=== PATIENT | female | born 1970 | race Caucasian/White ===

== ENCOUNTER 2020-01-06 13:09 | Outpatient (REF) | payer OTHER, SELFPAY ==
--- NOTE | 2020-01-06 | MM_ITS ---
EXAMINATION: MM SCREENING DIGITAL BREAST TOMOSYNTHESIS, BILATERAL CLINICAL INFORMATION: Screening. Asymptomatic. The lifetime risk of breast cancer based on the Tyrer-Cuzick Model is 5.9%. COMPARISON: Mammography: Mammograms of 02/16/2018 and multiple previous mammograms dated back to 06/27/2008. TECHNIQUE: Digital breast tomosynthesis is performed in both the craniocaudal and mediolateral oblique views along with computer-aided detection (CAD). Synthesized 2D images are generated from the tomosynthesis. FINDINGS: The breasts are heterogeneously dense, which may obscure small masses (ACR BI-RADS breast composition Category c). There are no significant masses, abnormal calcifications, or other abnormalities. Prominent bilateral axillary lymph nodes are noted, similar findings are seen on the multiple previous mammograms. Right axillary lymph node biopsy was performed on 03/30/2017 with benign pathology results (reactive lymph nodes). No significant interval change is noted compared to last study. MM/MM tomosynthesis screening BI IMPRESSION: No mammographic evidence of malignancy. ASSESSMENT: BI-RADS 2: Benign. RECOMMENDATION: Routine annual mammography screening. This patient's information was entered into a reminder system with a target due date for their next mammogram.
== END 2020-01-06 13:10 | disposition home or self-care (01) ==
LOC: HO.MAMMO 13:09
PROVIDERS: PCP Internal Medicine; Visit Provider Internal Medicine
DX: Z12.31 Encounter for screening mammogram for malignant neoplasm of breast (principal)
CPT/HCPCS: 77063; 77067

== ENCOUNTER 2020-02-10 13:41 | Outpatient (REF) | payer OTHER, SELFPAY ==
[2020-02-13 17:57] LABS: HPV mRNA E6/E7 rflx Not Detected (Not Detected)
== END 2020-02-10 13:42 | disposition home or self-care (01) ==
LOC: HO.LAB 13:41
PROVIDERS: PCP Internal Medicine; Visit Provider Obstetrics & Gynecology
DX: Z01.419 Encounter for gynecological examination (general) (routine) without abnormal findings (principal); N64.4 Mastodynia; Z78.0 Asymptomatic menopausal state; Z87.891 Personal history of nicotine dependence
CPT/HCPCS: 87624; 87625; 88142

== ENCOUNTER 2020-03-11 13:47 | Outpatient (REF) | payer OTHER, SELFPAY ==
[2020-03-11 14:37] LABS: Influenza A PCR NEGATIVE (Negative); Influenza B PCR NEGATIVE (Negative); Resp Syncy Virus RNA Qual PCR NEGATIVE (Negative); SARS COV2 PCR INHOUSE NEGATIVE (Negative)
== END 2020-03-11 13:48 | disposition home or self-care (01) ==
LOC: HO.LNP 13:47
PROVIDERS: Visit Provider Internal Medicine
DX: M79.10 Myalgia, unspecified site (principal); R51.9 Headache, unspecified; Z20.822 Contact with and (suspected) exposure to COVID-19
CPT/HCPCS: 0241U

== ENCOUNTER 2020-05-07 13:31 | Outpatient (REF) | payer OTHER, SELFPAY ==
--- NOTE | ~2020-05-07 | MM_ITS ---
EXAMINATION: MM DIAGNOSTIC DIGITAL BREAST TOMOSYNTHESIS, RIGHT Targeted right breast ultrasound CLINICAL INFORMATION: Right breast pain. Superiorly The lifetime risk of breast cancer based on the Tyrer-Cuzick Model is 11.8%. COMPARISON: Mammography: January 06, 2020 and studies dating back to November 15, 2014 TECHNIQUE: Digital breast tomosynthesis is performed in both the craniocaudal and mediolateral oblique views along with computer-aided detection (CAD). Synthesized 2D images are generated from the tomosynthesis. FINDINGS: The breasts are heterogeneously dense, which may obscure small masses (ACR BI-RADS breast composition Category c). There are no significant masses, abnormal calcifications, or other abnormalities. There are stable prominent axillary lymph nodes. Targeted ultrasound evaluation of region pain superior aspect of the right breast demonstrates multiple small simple cyst with anechoic lumen, smooth back haynes, and increased through sound transmission. No suspicious solid mass or region of abnormal distal sound shadowing appreciated. Results are provided to the patient at time of visit by the technologist. MM/MM tomosynthesis diagnostic RT IMPRESSION: No specific mammographic or ultrasound findings to suggest malignancy of the right breast. ASSESSMENT: BI-RADS 2: Benign RECOMMENDATION: Routine annual mammography screening due in 12 months. This patient's information was entered into a reminder system with a target due date for their next mammogram.
--- NOTE | ~2020-05-07 | US_ITS ---
EXAMINATION: US DIAGNOSTIC ULTRASOUND BREAST, RIGHT CLINICAL INFORMATION: Pain. COMPARISON: Mammography of same day as well as studies dating back to November 15, 2014. TECHNIQUE: Ultrasound of the breast is performed with real-time hamilton scale imaging and color Doppler. FINDINGS: Targeted ultrasound evaluation of region pain superior aspect of the right breast demonstrates multiple small simple cyst with anechoic lumen, smooth back haynes, and increased through sound transmission. No suspicious solid mass or region of abnormal distal sound shadowing appreciated. Results are provided to the patient at time of visit by the technologist. US/US breast RT limited IMPRESSION: No specific mammographic or ultrasound findings to suggest malignancy of the right breast. ASSESSMENT: BI-RADS 2: Benign RECOMMENDATION: Routine annual mammography screening due in 12 months.
== END 2020-05-07 13:32 | disposition home or self-care (01) ==
LOC: HO.MAMMO 13:31
PROVIDERS: PCP Internal Medicine; Visit Provider Obstetrics & Gynecology
DX: N64.4 Mastodynia (principal)
CPT/HCPCS: 76642; 77061; 77065

== ENCOUNTER → 2020-05-26 13:16 | Outpatient (BNVA) | payer OTHER, SELFPAY | PROVIDERS: PCP Internal Medicine; Visit Provider Surgery | DX: N64.4 Mastodynia (principal); N60.11 Diffuse cystic mastopathy of right breast | CPT/HCPCS: 99212 ==

== ENCOUNTER 2020-11-17 18:51 | Outpatient (REF) | payer OTHER, SELFPAY | END 2020-11-17 18:52 | disposition home or self-care (01) | LOC: HO.LNP 18:51 | PROVIDERS: Visit Provider Internal Medicine | DX: L03.011 Cellulitis of right finger (principal) | CPT/HCPCS: 87071; 87077; 87186; 87205 ==

== ENCOUNTER 2020-12-03 09:37 | Outpatient (REF) | payer OTHER, SELFPAY ==
[2020-12-06 14:01] LABS: TS Negative Control Passed; TS Panel A 1; TS Panel B 0; TS Positive Control Passed; TSpotTB Negative (SeeBelow)
== END 2020-12-03 09:38 | disposition home or self-care (01) ==
LOC: HO.LAB 09:37
PROVIDERS: PCP Internal Medicine; Visit Provider Internal Medicine
DX: L03.011 Cellulitis of right finger (principal); M06.9 Rheumatoid arthritis, unspecified; Z79.899 Other long term (current) drug therapy
CPT/HCPCS: 36415; 86481

== ENCOUNTER 2021-02-11 13:26 | Outpatient (REF) | payer OTHER, SELFPAY ==
[2021-02-17 12:52] LABS: HPV 16 RNA NOT DETECTED (NOT DETECTED); HPV mRNA E6/E7 rflx Detected (Not Detected)
== END 2021-02-11 13:27 | disposition home or self-care (01) ==
LOC: HO.LAB 13:26
PROVIDERS: PCP Internal Medicine; Visit Provider Obstetrics & Gynecology
DX: Z01.419 Encounter for gynecological examination (general) (routine) without abnormal findings (principal); Z11.51 Encounter for screening for human papillomavirus (HPV)
CPT/HCPCS: 87624; 87625; 88142

== ENCOUNTER 2021-03-04 09:57 | Emergency (ER) | payer OTHER, SELFPAY ==
[2021-03-04 10:08] VITALS: BP 118/67; PULSE 83; RESP 19; TEMP 36.6; O2SAT 100; BMI 34.7
--- NOTE | 2021-03-04 10:20 | ED_ITS ---
HPI - Extremity Injury (Lower) General Chief Complaint: Extremity Injury, Lower Stated Complaint: right leg pain Time Seen by Provider: 03/04/21 10:20 Source: patient Mode of arrival: ambulatory Limitations: no limitations History of Present Illness HPI Narrative: 50-year-old female presents for a traumatic right leg pain that started yesterday morning when she woke up. Past medical history of disc disease, 1 lumbar back surgery a few years ago, and sciatica. In addition, patient is on methotrexate for rheumatoid arthritis, history of arthritis, IBS, anxiety depression, GERD, and cervical neoplasm status post LEEP. Patient states her whole leg hurts, and is a 10/10 pain. States the pain is inside of her leg and is worse with sitting and with lying down. Better with standing. Denies history of blood clots, unilateral right calf swelling, recent surgeries or immobilizations, hormone use, hemoptysis. Denies fevers, incontinence of bowel or bladder, history of cancer IV drug use. States her right leg is not weak, it is just very painful. She was not doing anything out of the ordinary the day before she awoke with this leg pain. States yesterday the pain was not as bad, and she could drive. States it does feel somewhat similar to sciatica she has had in the past. Related Data Home Medications Medication Instructions Recorded Confirmed adalimumab 40 mg/0.4 mL mg SUBCUT 02/10/20 05/26/20 subcutaneous pen kit bupropion HCl 150 mg 24 hr tablet, mg PO 02/10/20 05/26/20 extended release citalopram 40 mg tablet 40 mg PO QAM 02/10/20 05/26/20 fluconazole 150 mg tablet mg PO 02/10/20 05/26/20 folic acid 1 mg tablet 1 mg PO DAILY 02/10/20 05/26/20 gabapentin 100 mg capsule 100 mg PO TID PRN 02/10/20 05/26/20 gabapentin 400 mg capsule 400 mg PO BEDTIME 02/10/20 05/26/20 hydrocortisone 2.5 % topical TOPICAL BID 02/10/20 05/26/20 ointment hydroxyzine pamoate 25 mg capsule 25 mg PO TID PRN 02/10/20 05/26/20 methotrexate sodium 2.5 mg tablet 12.5 mg PO QWEEK 02/10/20 05/26/20 ondansetron HCl 4 mg tablet 4 mg PO Q6H PRN 02/10/20 05/26/20 pantoprazole 40 mg tablet,delayed mg PO 02/10/20 05/26/20 release selenium sulfide 2.25 % shampoo TOPICAL 02/10/20 05/26/20 Previous Rx's Medication Instructions Recorded oxycodone 5 mg tablet 5 mg PO Q8H PRN #9 tab 03/04/21 oxycodone 5 mg tablet 5 mg PO Q8H PRN #9 tab 03/04/21 prednisone 20 mg tablet 60 mg PO DAILY 5 Days #15 tab 03/04/21 Allergies Allergy/AdvReac Type Severity Reaction Status Date / Time ibuprofen Allergy Unknown unknown Verified 02/11/21 13:51 No Known Allergies Allergy Verified 02/11/21 13:51 [No Known Allergies*] Review of Systems Constitutional: Constitutional: Denies body ache(s), Denies chills, Denies fatigue, Denies fever(s), Denies headache(s), Denies malaise and Denies weakness Eyes: Eyes: Denies diplopia ENT: Denies vertigo, Denies dizziness, Denies otalgia, Denies headache(s), Denies mouth pain, Denies post nasal drip, Denies sinus pain, Denies sinus pressure, Denies sore throat and Denies throat swelling Cardiovascular: Cardiovascular: Denies chest pain, Denies syncope, Denies leg edema, Denies lightheadedness, Denies Loss of Consciousness, Denies palpitations and Denies dyspnea Respiratory: Respiratory: Denies chest congestion, Denies cough and Denies dyspnea Gastrointestinal: Gastrointestinal: Denies abdominal pain, Denies hematochezia, Denies constipation, Denies diarrhea and Denies vomiting Musculoskeletal: Musculoskeletal: Denies joint swelling, Denies muscle cramps, Denies muscle weakness, Denies numbness, Reports radiating pain into limb (right leg pain) and Denies tingling Integumentary/Breasts: Skin/Breast: Denies erythema, Denies rash, Denies skin pain and Denies skin swelling Neurologic: Denies confusion, Denies vertigo, Denies dizziness, Denies syncope, Denies headache(s), Denies numbness, Denies tingling and Denies weakness Psychiatric: Psychiatric: Denies anxiety, Denies confusion and Denies depression Endocrine: Endocrine: Denies fatigue and Denies palpitations Allergic/Immunologic: Allergic/Immunologic: Denies throat swelling PMFSH Past Medical History Medical History Acid reflux Anxiety Arthritis YUE I (cervical intraepithelial neoplasia I) Depression IBS (irritable bowel syndrome) Rheumatoid arthritis Surgical History History of bilateral tubal ligation History of biopsy (03/2017) History of endometrial ablation Family History Family History Mother Breast cancer Social History Social History Alcohol intake: never Advance Directives: No Advance Directives Information Provided: No Sexual orientation: Straight/Heterosexual Gender identity: Female Physical Exam Vital Signs: Vital Signs: Last Vital Signs Temp 98 F 03/04/21 10:08 Pulse 83 03/04/21 10:08 Resp 19 03/04/21 10:08 BP 118/67 03/04/21 10:08 Pulse Ox 100 03/04/21 10:08 BMI result Body Mass Index 34.7 Const: General: No confusion Nutritional Appearance: well nourished Orientation/consciousness: No confusion Limitations: no limitations Eyes: Conjunctivae: conjunctivae normal Pupils: Equal, round and reactive pupils present EOM: EOMs intact bilaterally Neck: Neck: Yes full ROM, Yes no lymphadenopathy and Yes supple Resp: Effort & Inspection: normal respiratory effort and able to speak in complete sentences Auscultation: clear to auscultation bilaterally, no crackl es, no rales, no rhonchi and no wheezes Cardio: Rate: regular rate Rhythm: regular rhythm Heart sounds: S1 normal heart sound present and S2 normal heart sound present Back/Spine/Pelvis: Cervical Spine: normal cervical lordosis, cervical ROM normal, No cervical spasm, No Cervical spine tenderness and No step off deformity Thoracic/Lumbar Spine: Thoracic/lumbar spine scar(s), No paraspinal muscle tenderness, No thoraco-lumbar spasm, No thoracic spinal tenderness, No lumbar spinal tenderness and No straight leg raise positive Pelvis: no pain with anterior-posterior compression, no pain with lateral compression and buttock tenderness on the right Sacrum: no tenderness Coccyx: no tenderness Skin: General skin exam: no rashes or lesions noted Neuro: General: No confusion Cranial nerves: Yes Equal, round and reactive pupils present Extrem: Right lower extremity: full ROM, normal capillary refill, no joint enlargement, hip/thigh Details: normal to inspection, tenderness Location: of the proximal upper leg and normal ROM; Negative for no ecchymosis, no crepitus and no unusual warmth and lower leg Details: normal to inspection; Negative for no erythema, no tenderness, no localized swelling, no palpable cords, edema noted and no unusual warmth; No no edema Psych: Appearance: grossly normal Affect: normal affect Attitude: cooperative Thought process: Normal thought process present Course Course Course Narrative: 50-year-old female presents with atraumatic right leg pain. Pain starts in her upper right thigh and radiates down her leg. No numbness or tingling. Patient has a Wells score of 0, she PERCs out, vital signs are stable On exam, patient has 5/5 right lower extremity strength, she has intact deep tendon reflexes and pulses, intact sensation. She has a negative straight leg raise, but the anterior upper right thigh is painful when she extends her right leg while sitting. Patient is tender over her buttock muscle on the right side when I palpate. No vertebral point tenderness, no red flag symptoms Will give prednisone, oxycodone, will get D-dimer to rule out DVT, given the atraumatic presentation Reevaluation(s) Reevaluation #1: Negative D-dimer. Pt feels a little better with prednisone and oxycodone. Patient cannot have NSAIDs due to stomach problems Will prescribe prednisone, short course oxycodone, follow-up with PCP Counseled patient to return if they have leg weakness, bowel or bladder incont inence, saddle paresthesias, patient verbalized agreement and understanding of plan. MDM - Extremity Injury (Lower) Lab Data Labs: Lab Results 03/04/21 Range/Units 13:14 D-Dimer High Sensitivty < 150 NG/ML Discharge Plan Discharge Clinical Impression: Sciatic leg pain Patient Disposition: Home, Self-Care Instructions: Sciatica (ED) Additional Instructions: Please take medications as prescribed. You have already had her dose of prednisone today, you may start the next dose of prednisone tomorrow morning. Please take oxycodone as needed for pain. Please call your PCP for follow-up appointment If you have leg weakness, numbness or tingling in your groin area, if you are incontinent of urine or stool, please return to the emergency room Prescriptions: New oxycodone 5 mg tablet 5 mg PO Q8H PRN (Reason: pain) Qty: 9 RF: 0 prednisone 20 mg tablet 60 mg PO DAILY 5 Days Qty: 15 RF: 0 oxycodone 5 mg tablet 5 mg PO Q8H PRN (Reason: pain) Qty: 9 RF: 0 No Action folic acid 1 mg tablet 1 mg PO DAILY RF: 0 methotrexate sodium 2.5 mg tablet 12.5 mg PO QWEEK RF: 0 Humira(CF) Pen 40 mg/0.4 mL pen injector kit subcut RF: 0 citalopram 40 mg tablet 40 mg PO QAM RF: 0 bupropion HCl 150 mg tablet extended release 24 hr PO RF: 0 selenium sulfide 2.25 % shampoo topical RF: 0 hydrocortisone 2.5 % ointment topical BID RF: 0 fluconazole 150 mg tablet PO RF: 0 pantoprazole 40 mg tablet,delayed release (DR/EC) PO RF: 0 gabapentin 400 mg capsule 400 mg PO BEDTIME RF: 0 hydroxyzine pamoate 25 mg capsule 25 mg PO TID PRN (Reason: anxiety) RF: 0 ondansetron HCl 4 mg tablet 4 mg PO Q6H PRN (Reason: nausea/vomiting) RF: 0 gabapentin 100 mg capsule 100 mg PO TID PRN (Reason: pain) RF: 0
[2021-03-04] MEDS: oxyCODONE HCl Immed Release 5 MG TABLET PO (11:13)
[2021-03-04] MEDS: predniSONE 20 MG TABLET 60 MG PO (11:13)
[2021-03-04 14:15] LABS: D Dimer High Sensitivity < 150 NG/ML
== END 2021-03-04 14:43 | disposition home or self-care (01) ==
PROVIDERS: Physician Assistant; Emergency Provider Emergency Medicine; PCP Internal Medicine
DX: M54.41 Lumbago with sciatica, right side (principal); M79.604 Pain in right leg; Z79.899 Other long term (current) drug therapy
CPT/HCPCS: 36415; 85379; 99283

== ENCOUNTER 2021-03-19 11:16 | Outpatient (REF) | payer OTHER, SELFPAY ==
--- NOTE | ~2021-03-19 | MM_ITS ---
EXAMINATION: MM SCREENING DIGITAL BREAST TOMOSYNTHESIS, BILATERAL CLINICAL INFORMATION: Screening. Asymptomatic. Benign right axillary lymph node biopsy 03/30/2017 (reactive lymph node with activated germinal centers. No clonal B-cell or atypical T-cell population). The lifetime risk of breast cancer based on the Tyrer-Cuzick Model is 12%. COMPARISON: Mammography: 05/07/2020, 01/06/2020, 02/16/2018; ultrasound 03/30/2017 TECHNIQUE: Digital breast tomosynthesis is performed in both the craniocaudal and mediolateral oblique views along with computer-aided detection (CAD). Synthesized 2D images are generated from the tomosynthesis. FINDINGS: The breasts are heterogeneously dense, which may obscure small masses (ACR BI-RADS breast composition Category c). There are no significant masses, abnormal calcifications, or other abnormalities. Parenchymal pattern is similar to prior studies. There is no developing density or architectural abnormality. There is clip marker again noted right axillary node. Small low left axillary tail node stable The skin contours are unremarkable. No significant changes. MM/MM tomosynthesis screening BI IMPRESSION: No mammographic evidence of malignancy. ASSESSMENT: BI-RADS 2: Benign RECOMMENDATION: Routine annual mammography screening. This patient's information was entered into a reminder system with a target due date for their next mammogram.
== END 2021-03-19 11:17 | disposition home or self-care (01) ==
LOC: HO.MAMMO 11:16
PROVIDERS: Visit Provider Internal Medicine
DX: Z12.31 Encounter for screening mammogram for malignant neoplasm of breast (principal)
CPT/HCPCS: 77063; 77067

== ENCOUNTER 2021-04-12 08:22 | Outpatient (REF) | payer OTHER, SELFPAY | END 2021-04-12 08:23 | disposition home or self-care (01) | LOC: HO.LAB 08:22 | PROVIDERS: PCP Internal Medicine; Visit Provider Obstetrics & Gynecology | DX: N93.9 Abnormal uterine and vaginal bleeding, unspecified (principal); R87.820 Cervical low risk human papillomavirus (HPV) DNA test positive; K21.9 Gastro-esophageal reflux disease without esophagitis; R19.7 Diarrhea, unspecified; R10.11 Right upper quadrant pain; R14.0 Abdominal distension (gaseous) | CPT/HCPCS: 57454; 58100; 58110; 81025; 88305; 99202; 99212 ==

== ENCOUNTER 2021-04-29 14:30 | Outpatient (REF) | payer OTHER, SELFPAY ==
--- NOTE | ~2021-04-29 | US_ITS ---
EXAMINATION: US PELVIS CLINICAL INFORMATION: Abnormal uterine and vaginal bleeding COMPARISON: Previous pelvic ultrasound and CT of the abdomen and pelvis July 2019 TECHNIQUE: Ultrasound of the pelvis is performed using both transabdominal and transvaginal transducers along with Doppler. Transvaginal imaging is performed due to inadequate visualization transabdominally. FINDINGS: The uterus is anteverted and measures 6 7.9 x 3.9 x 4.9 cm in dimension. No focal uterine lesion is seen. Endometrial thickness is normal measuring 0.5 cm. There is acoustic shadowing in the endometrium questionable for small calcification. This is similar to previous CT sagittal reconstructed image July There are nabothian cysts in the cervix. The ovaries are normal-appearing. Right ovary measures 2.9 x 1.7 x 1.7 cm. There is a minimally complex bilobed cyst with single septation versus 2 adjacent cysts in the right ovary. Measured as 1 cyst this measures 1.5 x 1 x 0.7 cm. The left ovary is normal-appearing and measures 2 x 1.1 x 2.4 cm. There is no fluid in the pelvis. US/US pelvic and transvaginal IMPRESSION: Normal thickness endometrium. Small endometrial calcification similar to previous CT scan.
[2021-04-29 15:06] LABS: Hematocrit 38.8 % (37.0-47.0); Mean Corpuscular HGB Conc 30.9 g/dl (31.0-35.0); Mean Corpuscular Hemoglobin 27.9 pg (27.0-33.0); Mean Corpuscular Volume 90.2 fL (80.0-98.0); Platelet Count 248 X10*3/uL (160-400); Red Cell Distribution Width 14.6 % (11.0-16.0); White Blood Count 5.8 X10*3/uL (4.8-10.8)
[2021-04-29 15:34] LABS: Alanine Aminotransferase 28 U/L (0-31); Albumin Level 3.6 g/dL (3.5-5.0); Alkaline Phosphatase 104 U/L (39-117); Aspartate Amino Transferase 26 U/L (5-31); Bilirubin Total 0.4 mg/dL (0.0-1.0); Blood Urea Nitrogen 8 mg/dL (9-16); Estimated Glomerular Filt Rate > 60; Glucose Random 93 mg/dL (60-115); Lipase 67 U/L (8-78); Total Protein 8.2 g/dL (6.5-8.0)
[2021-04-29 15:45] LABS: Anion Gap 11 (12-20); Carbon Dioxide 25 mmol/L (22-29); Chloride 105 mmol/L (96-108); Potassium 4.3 mmol/L (3.3-5.1); Sodium 137 mmol/L (135-145)
[2021-04-29 15:54] LABS: TSH reflex Free T4 0.46 uIU/mL (0.32-4.0)
[2021-04-29 16:20] LABS: Folate > 20.0 ng/mL (> or = 4.0); Vitamin B12 307 pg/mL (200-900)
[2021-05-01 14:18] LABS: Transglutaminase Ab IgG <1.0 U/mL; Transglutaminase IgA <1.0 U/mL
[2021-05-03 13:41] LABS: Vitamin D 25-OH, D2 <4 ng/mL; Vitamin D 25-OH, D3 13 ng/mL; Vitamin D 25-OH, Total 13 ng/mL (30-100)
== END 2021-04-29 14:31 | disposition home or self-care (01) ==
LOC: HO.US 14:30
PROVIDERS: Absent Provider Nurse Practitioner Family; PCP Internal Medicine; Visit Provider Obstetrics & Gynecology
DX: N93.9 Abnormal uterine and vaginal bleeding, unspecified (principal); R10.11 Right upper quadrant pain; R14.0 Abdominal distension (gaseous); R19.7 Diarrhea, unspecified; E55.9 Vitamin D deficiency, unspecified
CPT/HCPCS: 36415; 76830; 76856; 80053; 82306; 82607; 82746; 83690; 84443; 85027; 86364

== ENCOUNTER 2021-05-13 09:01 | Outpatient (REF) | payer OTHER, SELFPAY ==
--- NOTE | ~2021-05-13 | XR_ITS ---
EXAMINATION: XR LUMBOSACRAL SPINE CLINICAL INFORMATION: Back pain COMPARISON: Lumbar radiographs 07/07/2017, CT abdomen and pelvis 07/19/2019. TECHNIQUE: Three views of the lumbosacral spine. FINDINGS: There is normal lumbar segmentation with 5 nonrib-bearing lumbar vertebrae of normal height and normal lumbar lordosis. Again, there is dextrocurvature upper lumbar spine. There is no lumbar vertebral compression or destructive process. There are degenerative disc changes with disc narrowing and mild vertebral spurring L4-L5 and L5-S1 with mild facet degeneration lumbosacral junction. Short chronic incidental ossification distal right iliolumbar ligament is again seen similar to prior exams. The SI joints and visualized sacrum are unremarkable. XR/XR lumbar spine 2-3V IMPRESSION: 1. Dextrocurvature of the lumbar spine. 2. Degenerative disc changes L4-S1. Facet degeneration lumbosacral junction. 3. Borderline grade 0-1 spondylolisthesis lumbosacral junction. 4. No significant changes prior study.
[2021-05-14 09:46] LABS: CA-125 7 U/mL (<35)
== END 2021-05-13 09:02 | disposition home or self-care (01) ==
LOC: HO.XRAY 09:01
PROVIDERS: Absent Provider Internal Medicine; PCP Internal Medicine; Visit Provider Obstetrics & Gynecology
DX: M54.9 Dorsalgia, unspecified (principal); N83.299 Other ovarian cyst, unspecified side; N93.9 Abnormal uterine and vaginal bleeding, unspecified
CPT/HCPCS: 36415; 72100; 86304

== ENCOUNTER 2021-05-14 09:56 | Outpatient (REF) | payer OTHER, SELFPAY ==
[2021-05-20 20:52] LABS: Pancreatic Elastase-1 >500 mcg/g
== END 2021-05-14 09:57 | disposition home or self-care (01) ==
LOC: HO.LNP 09:56
PROVIDERS: Visit Provider Nurse Practitioner Family
DX: R19.7 Diarrhea, unspecified (principal); K21.9 Gastro-esophageal reflux disease without esophagitis
CPT/HCPCS: 82656; 87338

== ENCOUNTER → 2021-05-21 13:36 | Outpatient (BNVA) | payer OTHER, SELFPAY | PROVIDERS: Visit Provider Obstetrics & Gynecology | DX: N93.9 Abnormal uterine and vaginal bleeding, unspecified (principal) | CPT/HCPCS: 99212 ==

== ENCOUNTER → 2021-05-25 10:09 | Outpatient (BNVA) | payer OTHER, SELFPAY | PROVIDERS: Referring Provider Internal Medicine; Visit Provider Nurse Practitioner Family | DX: Z01.818 Encounter for other preprocedural examination (principal); K21.9 Gastro-esophageal reflux disease without esophagitis; K58.1 Irritable bowel syndrome with constipation | CPT/HCPCS: 99212 ==

== ENCOUNTER 2021-06-18 07:39 | Day surgery (SDC) | payer OTHER, SELFPAY ==
[2021-06-11 13:56] VITALS: BMI 31.8
--- NOTE | 2021-06-17 08:33 | HO.ANESPROP2 ---
Documented by User: Olivia Acharya NP 06/17/21 08:35 HPI - Anesthesia Eval Consult details Narrative: 51yo F for D&C Hysteroscopy,poss polypectomy,poss myomectomy PMFSH Active Problems Active Problems: All Active Problems (Updated 05/13/21 @ 09:33 by Ariel Moreira MD) Complex ovarian cyst (Acute) GERD (gastroesophageal reflux disease) (Acute) IBS (irritable bowel syndrome) (Acute) Hiatal hernia (Acute) Abnormal uterine bleeding (AUB) (Acute) Cervical low risk human papillomavirus (HPV) DNA test positive (Acute) Well woman exam (Acute) Breast pain, right (Acute) Fibrocystic changes of right breast (Acute) Past Medical History Medical History Acid reflux Anxiety Arthritis YUE I (cervical intraepithelial neoplasia I) Depression GERD (gastroesophageal reflux disease) Hiatal hernia IBS (irritable bowel syndrome) Rheumatoid arthritis Family History Family History Mother Breast cancer Surgical History Surgical History (Updated 05/25/21 @ 10:18 by LIVIER Bermudez) History of bilateral tubal ligation History of biopsy (03/2017) History of endometrial ablation History of esophagogastroduodenoscopy (EGD) Hx of colonoscopy Social History Social History Household Members Other:: sister Are you a primary primary care provider to a significant other at home: No Do you presently have visiting nurse or other home services: No Alcohol intake: never Patient Tobacco Use Status: Never used Tobacco Use of substances other than those prescribed or required for medical reasons: Yes Substance Use Frequency: Occasionally Have you been hit, kicked, punched, or otherwise hurt by someone within the past year? If so, by whom?: No Are you DNR?: No Advance Directives: No Advance Directives Information Provided: No Advance Directives on File: No Recently lost weight without trying: No Eating poorly because of decreased appetite: No Nutrition Risks: No Nutritional Risk Patient : No Sexual orientation: Straight/Heterosexual Gender identity: Female Meds Allergies Allergy/AdvReac Type Severity Reaction Status Date / Time NSAIDS (Non-Steroidal Allergy Mild Abdominal Verified 06/11/21 13:49 Anti-Inflamma Pain Home Medications Medication Instructions Recorded Confirmed Last Taken Type citalopram 40 mg tablet 40 mg PO QAM 02/10/20 06/11/21 06/18/21 History fluconazole 150 mg tablet mg PO 02/10/20 05/26/20 Unknown History folic acid 1 mg tablet 1 mg PO DAILY 02/10/20 06/11/21 Unknown History gabapentin 100 mg capsule 100 mg PO TID PRN 02/10/20 06/11/21 Unknown History gabapentin 400 mg capsule 400 mg PO BEDTIME 02/10/20 06/11/21 Unknown History hydrocortisone 2.5 % topical TOPICAL BID 02/10/20 05/26/20 Unknown History ointment hydroxyzine pamoate 25 mg capsule 25 mg PO TID PRN 02/10/20 06/11/21 Unknown History methotrexate sodium 2.5 mg tablet 12.5 mg PO QWEEK 02/10/20 06/11/21 Unknown History ondansetron HCl 4 mg tablet 4 mg PO Q6H PRN 02/10/20 06/11/21 Unknown History pantoprazole 40 mg tablet,delayed 40 mg PO DAILY 02/10/20 06/11/21 06/18/21 History release selenium sulfide 2.25 % shampoo TOPICAL 02/10/20 05/26/20 Unknown History Exam Exam Date and Time: June 17, 2021 0833 Height,Weight and Vital Signs: Height 5 ft 3 in Weight 81.647 kg Pertinent Lab Results Pertinent Lab Results: Laboratory Tests 04/29/21 04/29/21 14:56 14:56 WBC 5.8 Hgb 12.0 Hct 38.8 Plt Count 248 Sodium 137 Potassium 4.3 Chloride 105 Carbon Dioxide 25 BUN 8 L Creatinine 0.86 Assessment and Plan Assessment Anesthesia Assessment: Chart Reviewed Documented by User: Rosaura Oliveros MD 06/18/21 08:20 [facility] Past Medical History Medical History Acid reflux Anxiety Arthritis YUE I (cervical intraepithelial neoplasia I) Depression GERD (gastroesophageal reflux disease) Hiatal hernia IBS (irritable bowel syndrome) Rheumatoid arthritis Family History Family History Mother Breast cancer Family history of problems with anesthesia: No Surgical History Surgical History (Updated 05/25/21 @ 10:18 by LIVIER Bermudez) History of bilateral tubal ligation History of biopsy (03/2017) History of endometrial ablation History of esophagogastroduodenoscopy (EGD) Hx of colonoscopy History of Problems with Anesthesia: No Social History Social History Household Members Other:: sister Are you a primary primary care provider to a significant other at home: No Do you presently have visiting nurse or other home services: No Alcohol intake: never Patient Tobacco Use Status: Never used Tobacco Use of substances other than those prescribed or required for medical reasons: Yes Substance Use Frequency: Occasionally Have you been hit, kicked, punched, or otherwise hurt by someone within the past year? If so, by whom?: No Are you DNR?: No Advance Directives: No Advance Directives Information Provided: No Advance Directives on File: No Recently lost weight without trying: No Eating poorly because of decreased appetite: No Nutrition Risks: No Nutritional Risk Patient : No Sexual orientation: Straight/Heterosexual Gender identity: Female Meds Allergies Allergy/AdvReac Type Severity Reaction Status Date / Time NSAIDS (Non-Steroidal Allergy Mild Abdominal Verified 06/11/21 13:49 Anti-Inflamma Pain Home Medications Medication Instructions Recorded Confirmed Last Taken Type citalopram 40 mg tablet 40 mg PO QAM 02/10/20 06/11/21 06/18/21 History fluconazole 150 mg tablet mg PO 02/10/20 05/26/20 Unknown History folic acid 1 mg tablet 1 mg PO DAILY 02/10/20 06/11/21 Unknown History gabapentin 100 mg capsule 100 mg PO TID PRN 02/10/20 06/11/21 Unknown History gabapentin 400 mg capsule 400 mg PO BEDTIME 02/10/20 06/11/21 Unknown History hydrocortisone 2.5 % topical TOPICAL BID 02/10/20 05/26/20 Unknown History ointment hydroxyzine pamoate 25 mg capsule 25 mg PO TID PRN 02/10/20 06/11/21 Unknown History methotrexate sodium 2.5 mg tablet 12.5 mg PO QWEEK 02/10/20 06/11/21 Unknown History ondansetron HCl 4 mg tablet 4 mg PO Q6H PRN 02/10/20 06/11/21 Unknown History pantoprazole 40 mg tablet,delayed 40 mg PO DAILY 02/10/20 06/11/21 06/18/21 History release selenium sulfide 2.25 % shampoo TOPICAL 02/10/20 05/26/20 Unknown History Exam Airway Mallampati Class: II (2 chipped teeth) TM Dist: >3cm Neck ROM: Full Heart: rrr Lungs: cta Assessment and Plan Assessment Anesthesia Assessment: Anesthesia Plan Discussed and Chart Reviewed Final Anesthetic Review Family History of Problems with Anesthesia: No History of Problems with Anesthesia: No NPO: Yes ASA Class: II Final Preanesthetic Review: No Changes in Pt Med Stat, Meds/Allgs Chart Reviewed and Consent Obtained/Reviewed Patient Risk: Intermediate Procedure Risk: Intermediate Anesthetic Plan Anesthetic Plan: GA Disposition: Standard PACU
[2021-06-18] VITALS (7 sets, daily range): BP systolic 115–133; BP diastolic 72–89; PULSE 56–89; RESP 16–18; TEMP 36.1–36.4; O2SAT 95–100
[2021-06-18 07:56] LABS: UPreg QC Valid YES; Urine Pregnancy NEGATIVE (NEGATIVE)
[2021-06-18] MEDS: Lactated Ringers 1,000 ML 100 ML IVCONT (08:02)
--- NOTE | 2021-06-18 08:32 | MHC.SHP ---
Pre-Procedural Eval Section A Date of Service: 06/18/21 The patient is an INPATIENT: No Changes since office visit: No Cold of Flu in the past 2 weeks, No New Medical Problems, No Changes in Medication and No Patient answered all questions The History & Physical has been completed within 30 days and I have reviewed it.: Yes Section B Chief Complaint: Abnormal uterine and vaginal bleeding Allergies: Allergies Allergy/AdvReac Type Severity Reaction Status Date / Time NSAIDS (Non-Steroidal Allergy Mild Abdominal Verified 06/11/21 13:49 Anti-Inflamma Pain Plan Diagnosis/Plan: Unchanged I have reviewed the history and physical and performed a pertinent physical examination on my patient. No changes have occurred unless specified.
--- NOTE | 2021-06-18 09:05 | P.BOP_ITS ---
Brief Operative Note Date of Service: 06/18/21 Pre-op diagnosis: Abnormal uterine bleeding Post-op diagnosis: same ( normal endometrial/endocervical cavity) Procedure: Hysteroscopy D&C Surgeon: Ariel Moreira MD Anesthesia: MAC Was an Supervisor Cigar Processing used for this Procedure?: No Estimated blood loss (mL): 0 Pathology: other (Endometrial Scrapping) Condition: stable Disposition: PACU
--- NOTE | 2021-06-18 09:06 | P.OP_ITS ---
Operative Note Operative Note Date of Service: 06/18/21 Narrative: Preop Diagnosis: abnormal uterine bleeding Operation: Diagnostic Hysteroscopy, Dilataion & Curettage Post Op Diagnosis: Normal endometrial cavity and endocervical canal a QBL: Minimal Anesthesia: MAC Surgeon: Ariel Mroeira MD Band Bias Machine Operator: None Complication: None Pathology: Endometrial Scrapings Procedure: The patient was put in the dorsal lithotomy position, scrubbed, and draped in the usual manner. A sterile speculum was inserted in the patient's vagina. The anterior lip of the cervix was grasped with a single tooth tenaculum. The cervix was dilated up to 5 mm, then the scope was inserted in the patient's uterus. Inspection revealed Normal endometrial cavity. The Myosure Reach device was used; sharp curettings was carried on with moderate amount of tissues retrieved. At the end of the procedure, all instruments were taken out of the patient uterine and vaginal cavity. The single tooth tenaculum was removed and homeostasis was assured using pressure,. The patient tolerated the procedure well and was transferred to the PACU in a stable condition.
== END 2021-06-18 10:14 | disposition home or self-care (01) ==
PROVIDERS: PCP Internal Medicine; Visit Provider Obstetrics & Gynecology
PROC: 0UDB8ZZ Extraction of Endometrium, Via Natural or Artificial Opening Endoscopic (ICD-10-PCS; CPT 58558; principal; 2021-06-18 09:00)
DX: N93.9 Abnormal uterine and vaginal bleeding, unspecified (principal); Z87.410 Personal history of cervical dysplasia; M06.9 Rheumatoid arthritis, unspecified; Z98.51 Tubal ligation status; F32.9 Major depressive disorder, single episode, unspecified; Z79.899 Other long term (current) drug therapy; Z88.8 Allergy status to other drugs, medicaments and biological substances
CPT/HCPCS: 58558; 81025; 88305; J1100; J2250; J2405; J3010

== ENCOUNTER → 2021-07-01 13:10 | Outpatient (BNVA) | payer OTHER, SELFPAY | PROVIDERS: Visit Provider Obstetrics & Gynecology | DX: Z13.89 Encounter for screening for other disorder (principal) ==

== ENCOUNTER 2021-07-13 09:42 | Day surgery (SDC) | payer OTHER, SELFPAY ==
--- NOTE | 2021-07-12 13:15 | P.CONAN_ITS ---
HPI - Anesthesia Eval Consult details Narrative: 51yo F for Upper Endoscopy and Colonoscopy Weekly methotrexate for RA s/p D&C Hyst 06/2021 with GA-LMA 3 PMFSH Active Problems Active Problems: All Active Problems (Updated 07/01/21 @ 13:26 by Ariel Moreira MD) Complex ovarian cyst (Acute) GERD (gastroesophageal reflux disease) (Acute) IBS (irritable bowel syndrome) (Acute) Hiatal hernia (Acute) Abnormal uterine bleeding (AUB) (Acute) Cervical low risk human papillomavirus (HPV) DNA test positive (Acute) Well woman exam (Acute) Breast pain, right (Acute) Fibrocystic changes of right breast (Acute) Past Medical History Medical History Acid reflux Anxiety Arthritis YUE I (cervical intraepithelial neoplasia I) Depression GERD (gastroesophageal reflux disease) Hiatal hernia IBS (irritable bowel syndrome) Rheumatoid arthritis Family History Family History Mother Breast cancer Family history of problems with anesthesia: No Surgical History Surgical History History of bilateral tubal ligation History of biopsy (03/2017) History of endometrial ablation History of esophagogastroduodenoscopy (EGD) Hx of colonoscopy History of Problems with Anesthesia: No Social History Social History Household Members Other:: sister Are you a primary patient care coordinator to a significant other at home: No Do you presently have visiting nurse or other home services: No Alcohol intake: never Patient Tobacco Use Status: Former Tobacco user Sexual orientation: Straight/Heterosexual Gender identity: Female Meds Allergies Allergy/AdvReac Type Severity Reaction Status Date / Time NSAIDS (Non-Steroidal Allergy Mild Abdominal Verified 06/11/21 13:49 Anti-Inflamma Pain Home Medications Medication Instructions Recorded Confirmed Last Taken Type citalopram 40 mg tablet 40 mg PO QAM 02/10/20 06/11/21 07/13/21 History fluconazole 150 mg tablet mg PO 02/10/20 05/26/20 Unknown History folic acid 1 mg tablet 1 mg PO DAILY 02/10/20 06/11/21 Unknown History gabapentin 100 mg capsule 100 mg PO TID PRN 02/10/20 06/11/21 Unknown History gabapentin 400 mg capsule 400 mg PO BEDTIME 02/10/20 06/11/21 Unknown History hydrocortisone 2.5 % topical TOPICAL BID 02/10/20 05/26/20 Unknown History ointment hydroxyzine pamoate 25 mg capsule 25 mg PO TID PRN 02/10/20 06/11/21 Unknown History methotrexate sodium 2.5 mg tablet 12.5 mg PO QWEEK 02/10/20 06/11/21 Unknown History ondansetron HCl 4 mg tablet 4 mg PO Q6H PRN 02/10/20 06/11/21 Unknown History pantoprazole 40 mg tablet,delayed 40 mg PO DAILY 02/10/20 06/11/21 07/13/21 History release selenium sulfide 2.25 % shampoo TOPICAL 02/10/20 05/26/20 Unknown History Exam Exam Date and Time: July 12, 2021 1315 Pertinent Lab Results Pertinent Lab Results: Laboratory Tests 04/29/21 04/29/21 14:56 14:56 WBC 5.8 Hgb 12.0 Hct 38.8 Plt Count 248 Sodium 137 Potassium 4.3 Chloride 105 Carbon Dioxide 25 BUN 8 L Creatinine 0.86 Assessment and Plan Assessment Anesthesia Assessment: Chart Reviewed Final Anesthetic Review Family History of Problems with Anesthesia: No History of Problems with Anesthesia: No
--- NOTE | 2021-07-13 10:02 | P.HPSUR_ITS ---
Pre-Procedural Eval Section A Date of Service: 07/13/21 Section B Chief Complaint: screening,reflux disease Relevant Family History (Specify if Yes): No Relevant Social History: None Present Medications: see Short Stay Collaborative assessment Medical History: Significant History (Acid reflux Anxiety Arthritis YUE I (cervical intraepithelial neoplasia I) Depression GERD (gastroesophageal reflux disease) Hiatal hernia IBS (irritable bowel syndrome) Rheumatoid arthritis) History of Previous Operations: Relevant previous surgery/procedure and date(s) (History of bilateral tubal ligation History of biopsy (03/2017) History of endometrial ablation History of esophagogastroduodenoscopy (EGD) Hx of colonoscopy) Allergies: Allergies Allergy/AdvReac Type Severity Reaction Status Date / Time NSAIDS (Non-Steroidal Allergy Mild Abdominal Verified 06/11/21 13:49 Anti-Inflamma Pain Review of Systems Sugical H&P ROS: Negative: Constitution, Cardiovascular, Respiratory, Neurological, Psychiatric, Hem-Onc, Allergic/Immunologic, Gastrointestinal, Genitourinary, Musculoskeletal, Integumentary, Endocrine and Eyes/Ears/Nose/Throat Exam Surgical H&P Exam: Normal: HEENT, Normal: Heart, Normal: Lungs, Normal: Ex tremities, Normal: Abdomen, Normal: Skin and Normal: Neurological Plan Diagnosis/Plan: Unchanged I have reviewed the history and physical and performed a pertinent physical examination on my patient. No changes have occurred unless specified.
[2021-07-13 10:12] VITALS: BP 113/69; PULSE 68; RESP 16; TEMP 36.5; O2SAT 100; BMI 31.8
[2021-07-13] MEDS: Lactated Ringers 1,000 ML 100 ML IVCONT (10:36)
--- NOTE | 2021-07-13 10:54 | P.BOP_ITS ---
Brief Operative Note Date of Service: 07/13/21 Pre-op diagnosis: GERD and colon screening Post-op diagnosis: same Procedure: see op note Surgeon: Sree Yañez MD Anesthesia: MAC Was an Manifold Operator used for this Procedure?: No Estimated blood loss (mL): 0 Condition: stable Disposition: PACU
--- NOTE | 2021-07-13 10:55 | W.PM.OPN ---
Operative Note Operative Note Date of Service: 07/13/21 Narrative: Operative Information Procedure Description: EGD, Colonoscopy Indication: GERD and colon screening Anesthesia: MAC FLEXIBLE TRANSORAL UPPER GASTROINTESTINAL ENDOSCOPY AND COLONOSCOPY PROCEDURE NOTE UPPER ENDOSCOPY Consent: Indications for the procedure and potential complications of bleeding, perforation, reaction to medications and missed diagnosis were discussed with the patient and informed consent was obtained. Instrument: Olympus GIF H 190 J mid size upper endoscope Monitoring: Vital signs and clinical assessment, continuous EKG monitoring, Pulse oximetry, Carbon Dioxide monitoring and blood pressure monitoring were done throughout the procedure. Procedure: The patient was placed in the left lateral decubitis position and pre-procedure medications were administered and a bite block was placed. The endoscope was inserted into the mouth and advanced under direct vision to the third part of duodenum. A careful inspection was made as the upper endoscope was withdrawn including a retroflexed examination of the proximal stomach; Findings and interventions are described below. Findings: Larynx:normal Esophagus: GE junction at 40 cm, diaphragm hiatus at 40 cm, normal mucosa Stomach: Patchy erythema and atrophy. Biopsies were obtained. Grade 2 flap valve on retroflexed examination of the cardia. The pyloric outlet was stenosed, couldn;t pass the scope so dilated to 11.5 mm and then scope was able to pass. Few fundic gland polyps noted. Duodenum: Normal bulb and descending duodenum, Intervention: Biopsies as noted above, pyloric dilation COLONOSCOPY Instrument: Olympus variable stiffness pediatric scope 190L Colonoscopy Monitoring: Vital signs and clinical assessment, continuous EKG monitoring, Pulse oximetry, Carbon Dioxide monitoring and blood pressure monitoring were done throughout the procedure. Colon withdrawal time was 8 minutes. Procedure: The patient was placed in the left lateral decubitis position and pre-procedure medications were administered. After a digital rectal examination of the ano-rectum, the video colonoscope was inserted into the rectum and advanced through the colon to the cecum/TI. The colonoscope was slowly withdrawn in a retrograde panoramic fashion and the colon mucosa was carefully examined including a retroflexed view of the rectum. Findings and interventions are described below. Procedure Difficulty:moderate due to looping Findings: Terminal Ileum-unable to intubate due to looping Cecum:normal Ascending Colon: normal Transverse Colon -normal Descending Colon:normal Sigmoid Colon: normal Rectum: Retroflexion with small internal hemorrhoids, grade I Anorectum - normal Colon preparation: [place] Bowel Preparation Scale Right colon; 2 Transverse colon: 2 Left colon; 2 (0 = Unprepared colon segment with mucosa not seen due to solid stool that cannot be cleared. 1 = Portion of mucosa of the colon segment seen, but other areas of the colon segment not well seen due to staining, residual stool and/or opaque liquid. 2 = Minor amount of residual staining, small fragments of stool and/or opaque liquid, but mucosa of colon segment seen well. 3 = Entire mucosa of colon segment seen well with no residual staining, small fragments of stool or opaque liquid) Impression and Post Procedure Diagnosis: Endoscopy Findings: atrophic gastritis gastric outlet obstruction and pyloric stenosis. Colonoscopy Findings: internal hemorrhoids Plan: Await Pathology results Repeat Colonoscopy in 10 years or earlier if clinically indicated High fiber diet leaflet avoid straining at stool, epsom salts and sitz bath, anusol supps or cream may need further dilation of the stomach will assess clinical response Above findings were reviewed with the patient and relevant handouts were provided if indicated.
[2021-07-13 11:50] VITALS: BP 122/75; PULSE 76; RESP 16; TEMP 36.1; O2SAT 98
[2021-07-13 12:05] VITALS: BP 133/88; PULSE 63; RESP 18; TEMP 36.1; O2SAT 100
== END 2021-07-13 12:57 | disposition home or self-care (01) ==
PROVIDERS: PCP Internal Medicine; Visit Provider Internal Medicine Gastroenterology
PROC: (CPT 45378; principal; 2021-07-13 11:10)
DX: Z12.11 Encounter for screening for malignant neoplasm of colon (principal); K64.0 First degree hemorrhoids; K58.9 Irritable bowel syndrome, unspecified; K21.9 Gastro-esophageal reflux disease without esophagitis; K31.1 Adult hypertrophic pyloric stenosis; K56.609 Unspecified intestinal obstruction, unspecified as to partial versus complete obstruction; K29.40 Chronic atrophic gastritis without bleeding; K31.7 Polyp of stomach and duodenum; K44.9 Diaphragmatic hernia without obstruction or gangrene; K20.80 Other esophagitis without bleeding; M06.9 Rheumatoid arthritis, unspecified; Z79.899 Other long term (current) drug therapy; Z88.8 Allergy status to other drugs, medicaments and biological substances; Z87.891 Personal history of nicotine dependence
CPT/HCPCS: 45378; 43245; 43239; 88305; 88342; C1726

== ENCOUNTER → 2021-07-27 11:24 | Outpatient (BNVA) | payer OTHER, SELFPAY | PROVIDERS: PCP Internal Medicine; Referring Provider Internal Medicine; Visit Provider Nurse Practitioner Family | DX: K21.9 Gastro-esophageal reflux disease without esophagitis (principal); K58.1 Irritable bowel syndrome with constipation; K64.8 Other hemorrhoids; R10.13 Epigastric pain | CPT/HCPCS: 99212 ==

== ENCOUNTER 2021-08-16 11:08 | Outpatient (REF) | payer OTHER, SELFPAY ==
--- NOTE | ~2021-08-16 | US_ITS ---
EXAMINATION: US PELVIS CLINICAL INFORMATION: Follow-up right ovarian cyst. COMPARISON: Previous pelvic ultrasound April [address] scan July 2019 TECHNIQUE: Ultrasound of the pelvis is performed using both transabdominal and transvaginal transducers along with Doppler. Transvaginal imaging is performed due to inadequate visualization transabdominally. FINDINGS: The uterus is anteverted and measures 7.9 x 3.5 x 5 cm in dimension. The calcification in or near the endometrium of the in the lower uterine segment. No other focal lesion is seen. Endometrial thickness is normal measuring 1.2 cm. There is a nabothian cyst in the cervix. The right ovary is not seen. The left ovary is normal-appearing and measures 2.3 x 1.4 x 1.6 cm. There is no fluid in the pelvis. US/US pelvic and transvaginal IMPRESSION: Right ovary not seen. Stable small calcification in or adjacent to the endometrium in the lower uterine segment.
== END 2021-08-16 11:09 | disposition home or self-care (01) ==
LOC: HO.US 11:08
PROVIDERS: PCP Internal Medicine; Visit Provider Obstetrics & Gynecology
DX: N83.299 Other ovarian cyst, unspecified side (principal)
CPT/HCPCS: 76830; 76856

== ENCOUNTER → 2021-11-19 13:03 | Outpatient (BNVA) | payer OTHER, SELFPAY | PROVIDERS: PCP Internal Medicine; Visit Provider Nurse Practitioner Family | DX: K21.9 Gastro-esophageal reflux disease without esophagitis (principal); K58.1 Irritable bowel syndrome with constipation; K59.04 Chronic idiopathic constipation | CPT/HCPCS: 99212 ==

== ENCOUNTER 2021-11-26 10:54 | Outpatient (REF) | payer OTHER, SELFPAY ==
--- NOTE | ~2021-11-26 | US_ITS ---
EXAMINATION: US PELVIS CLINICAL INFORMATION: Ovarian cyst COMPARISON: Previous pelvic ultrasounds most recent August [address] of the abdomen and pelvis July 2019 TECHNIQUE: Ultrasound of the pelvis is performed using both transabdominal and transvaginal transducers along with Doppler. Transvaginal imaging is performed due to inadequate visualization transabdominally. FINDINGS: The uterus is anteverted and measures 7.3 x 4.1 x 4.6 cm in dimension. There are small echogenic densities near the endometrium in the lower uterine segment probably representing calcifications. No other focal uterine lesion is seen. Endometrial thickness is normal measuring 0.2 cm. The right ovary is normal-appearing and measures 1.9 x 1.1 x 2.2 cm. Left ovary is normal-appearing and measures 1.7 x 0.9 x 1.7 cm. No ovarian cyst is seen. There is a small amount of fluid in the pelvis. US/US pelvic and transvaginal IMPRESSION: No ovarian cyst seen. Small echogenic foci in the lower uterine segment questionable for calcifications similar to previous exam.
== END 2021-11-26 10:55 | disposition home or self-care (01) ==
LOC: HO.US 10:54
PROVIDERS: PCP Internal Medicine; Visit Provider Obstetrics & Gynecology
DX: N83.299 Other ovarian cyst, unspecified side (principal)
CPT/HCPCS: 76830; 76856

== ENCOUNTER → 2021-12-15 12:28 | Outpatient (BNVA) | payer OTHER, SELFPAY | PROVIDERS: PCP Internal Medicine; Visit Provider Obstetrics & Gynecology | DX: N83.299 Other ovarian cyst, unspecified side (principal) | CPT/HCPCS: 99212 ==

== ENCOUNTER 2021-12-29 12:17 | Outpatient (REF) | payer OTHER, SELFPAY ==
[2021-12-29 13:48] LABS: Erythrocyte Sedimentation Rate 44 MM/HR (0-20)
== END 2021-12-29 12:18 | disposition home or self-care (01) ==
LOC: HO.LAB 12:17
PROVIDERS: PCP Internal Medicine; Visit Provider Psychiatry & Neurology Neurology
DX: G50.1 Atypical facial pain (principal)
CPT/HCPCS: 36415; 85652

== ENCOUNTER 2022-02-18 14:55 | Outpatient (REF) | payer OTHER, SELFPAY ==
[2022-02-18 15:46] LABS: Influenza A PCR NEGATIVE (Negative); Influenza B PCR NEGATIVE (Negative); Resp Syncy Virus RNA Qual PCR POSITIVE (Negative); SARS COV2 PCR INHOUSE NEGATIVE (Negative)
== END 2022-02-18 14:56 | disposition home or self-care (01) ==
LOC: HO.LNP 14:55
PROVIDERS: Visit Provider Internal Medicine
DX: Z20.822 Contact with and (suspected) exposure to COVID-19 (principal); R50.9 Fever, unspecified; R51.9 Headache, unspecified; R06.2 Wheezing
CPT/HCPCS: 0241U

== ENCOUNTER 2022-02-19 10:14 | Emergency (ER) | payer OTHER, SELFPAY ==
--- NOTE | ~2022-02-19 | XR_ITS ---
EXAMINATION: XR CHEST CLINICAL INFORMATION: Cough COMPARISON: 07/19/2016 TECHNIQUE: Frontal view of the chest was obtained. FINDINGS: No significant abnormality is noted involving the heart, lungs, mediastinum, bony thorax or soft tissues. XR/XR chest 1V IMPRESSION: Unremarkable examination.
[2022-02-19 10:16] VITALS: BP 134/86; PULSE 96; RESP 18; TEMP 36.5; O2SAT 96; BMI 27.9
--- NOTE | 2022-02-19 10:20 | ECG_ITS ---
Test Reason : CP Blood Pressure : / mmHG Vent. Rate : 084 BPM Atrial Rate : 084 BPM P-R Int : 148 ms QRS Dur : 082 ms QT Int : 356 ms P-R-T Axes : 068 051 029 degrees QTc Int : 420 ms Normal sinus rhythm Normal ECG When compared with ECG of 25-MAY-2016 09:38, No significant change was found Referred By: Generic ED Physician Electronically Signed By:RAFAEL MANCIA
[2022-02-19 10:35] LABS: MANUAL DIFF FLAG NO
[2022-02-19 10:41] LABS: Basophils Percent Auto 0.3 % (0-2); Eosinophils Absolute Auto 0.1 X10*3/uL (0.0-0.4); Eosinophils Percent Auto 1.6 % (0-4); Hematocrit 37.8 % (37.0-47.0); Hemoglobin 12.4 g/dl (12.0-16.0); Imm Gran Abs Auto 0.03 X10*3/uL (0.00-0.03); Imm Gran Pct Auto 0.5 % (0.0-0.4); Lymphocytes Absolute Auto 1.3 X10*3/uL (1.2-4.9); Lymphocytes Percent Auto 19.9 % (20-40); Mean Corpuscular HGB Conc 32.8 g/dl (31.0-35.0); Mean Corpuscular Hemoglobin 28.8 pg (27.0-33.0); Mean Corpuscular Volume 87.7 fL (80.0-98.0); Mean Platelet Volume 9.9 fL (9.4-12.3); Monocytes Absolute Auto 0.6 X10*3/uL (0.1-1.2); Monocytes Percent Auto 8.7 % (2-11); Neutrophils Absolute Auto 4.4 x10*3/uL (2.0-8.3); Platelet Count 262 X10*3/uL (160-400); Red Blood Count 4.31 X10*6/uL (4.20-5.50); Red Cell Distribution Width 14.3 % (11.0-16.0); White Blood Count 6.4 X10*3/uL (4.8-10.8)
--- NOTE | 2022-02-19 10:42 | ED_ITS ---
HPI - Chest Pain General Chief Complaint: Chest Pain Stated Complaint: chest pain Time Seen by Provider: 02/19/22 10:40 Source: patient Mode of arrival: ambulatory Limitations: no limitations History of Present Illness HPI narrative: Patient recently got URI and since then she got chest pain and wheezing patient tested with positive for RSV MD complaint: chest pain Onset (ago): day(s) Timing of current episode: episodic Onset: other (coughing) Severity: mild Risk Factors Coronary artery disease risk factors: none Thoracic aortic dissection risk factors: none Related Data Home Medications Medication Instructions Recorded Confirmed citalopram 40 mg tablet 40 mg PO QAM 02/10/20 06/11/21 fluconazole 150 mg tablet mg PO 02/10/20 05/26/20 folic acid 1 mg tablet 1 mg PO DAILY 02/10/20 06/11/21 gabapentin 100 mg capsule 100 mg PO TID PRN pain 02/10/20 06/11/21 gabapentin 400 mg capsule 400 mg PO BEDTIME 02/10/20 06/11/21 hydroxyzine pamoate 25 mg capsule 25 mg PO TID PRN anxiety 02/10/20 06/11/21 methotrexate sodium 2.5 mg tablet 12.5 mg PO QWEEK 02/10/20 06/11/21 ondansetron HCl 4 mg tablet 4 mg PO Q6H PRN nausea/vomiting 02/10/20 06/11/21 selenium sulfide 2.25 % shampoo topical 02/10/20 05/26/20 prednisone 20 mg tablet 20 mg PO DAILY 12/15/21 Previous Rx's Medication Instructions Recorded famotidine 20 mg tablet (Pepcid) 20 mg PO BEDTIME #30 tabs 07/12/21 docusate sodium 100 mg capsule 100 mg PO BEDTIME #90 caps 07/27/21 hydrocortisone 2.5 % topical cream 1 appl TN BID-QID PRN hemorrhoids 07/27/21 with perineal applicator #30 grams (Anusol-HC) hydrocortisone 2.5 % topical 1 appl topical BID #28.35 grams 07/27/21 ointment methylcellulose (laxative) 500 mg 500 mg PO DAILY #90 tabs 07/27/21 tablet (Citrucel) omeprazole 40 mg capsule,delayed 40 mg PO DAILY #90 caps 07/27/21 release sennosides 8.6 mg tablet (Natural 8.6 mg PO BEDTIME constipation #90 11/19/21 Senna Laxative) tabs Allergies Allergy/AdvReac Type Severity Reaction Status Date / Time NSAIDS (Non-Steroidal Allergy Mild Abdominal Verified 02/19/22 10:16 Anti-Inflamma Pain Review of Systems Review of Systems: Yes all other systems are reviewed and are negative Respiratory: Respiratory: Reports cough and Reports wheezing Neurologic: Denies Sensory deficit (Neuro) Allergic/Immunologic: Allergic/Immunologic: Reports wheezing PMFSH Past Medical History Medical History Acid reflux Anxiety Arthritis YUE I (cervical intraepithelial neoplasia I) Depression GERD (gastroesophageal reflux disease) Hiatal hernia IBS (irritable bowel syndrome) Rheumatoid arthritis Surgical History History of bilateral tubal ligation History of biopsy (03/2017) History of endometrial ablation History of esophagogastroduodenoscopy (EGD) Hx of colonoscopy Family History Family History Mother Breast cancer Social History Social History Household Members Other:: sister Are you a primary pharmacist critical care to a significant other at home: No Do you presently have visiting nurse or other home services: No Alcohol intake: never Patient Tobacco Use Status: Former Tobacco user Substance Use Type: Marijuana Advance Directives: No Advance Directives Information Provided: No Sexual orientation: Straight/Heterosexual Gender identity: Female Physical Exam Vital Signs: Vital Signs: Last Vital Signs Temp 98.1 F 02/19/22 10:56 Pulse 84 02/19/22 10:59 Resp 18 02/19/22 10:59 BP 111/81 02/19/22 10:56 Pulse Ox 97 02/19/22 10:56 O2 Del Method 02/19/22 10:56 BMI result Body Mass Index 27.9 Const: General: healthy appearing Nutritional Appearance: average body habitus Orientation/consciousness: oriented to person and patient oriented x3 Limitations: no limitations HEENT: Head: Yes normal to inspection Ears: external ears normal General nose exam: Normal external nose present Mouth: Normal oral and palatal mucosa present and oropharynx normal Throat: Yes posterior oropharynx normal Eyes: General: appearance normal, both eyes and all related structures Neck: Other: supple Neck: Yes normal visual inspection Chest: Chest palpation & inspection: normal inspection of the chest Resp: Other: slight bilateral wheeze Cardio: Jugular venous distension: no JVD Rate: regular rate Rhythm: regular rhythm Heart sounds: S1 normal heart sound present and S2 normal heart sound present GI: Inspection: Yes normal to inspection Palpation (GI): Soft to palpation, nontender and No hepatosplenomegaly present Auscultation: normal bowel sounds : General: Yes no CVA tenderness Back/Spine/Pelvis: Back: no CVA tenderness Skin: General skin exam: no rashes or lesions noted Neuro: General: oriented to person and patient oriented x3 Cranial nerves: Yes CN's II-XII intact bilaterally Motor exam (neuro): 5/5 motor strength present throughout Sensory Exam: No Sensory deficit (Neuro) Extrem: General: Yes normal to inspection Psych: Appearance: grossly normal Course Reevaluation(s) Reevaluation #1: patient with symptoms consistent with RSV will dc home Time: 11:45 Medications Administered Discontinued Medications Generic Name Dose Route Start Last Admin Trade Name Freq PRN Reason Stop Dose Admin Albuterol/Ipratropium 3 ml 02/19/22 10:47 02/19/22 10:58 Albuterol/Iprat 2.5/0.5mg 3 Ml Ampul.Neb INHALE 02/19/22 10:48 3 ml ONCE ONE Administration Medical Decision Making Differential Diagnosis cardiac ischemia, pneumonia, RSV pneumonitis were all considered Admission/Observation With chest pain and infection, admission was considered Lab Data Result Diagrams: 02/19/22 10:29 02/19/22 10:29 Labs: Lab Results 02/19/22 02/19/22 02/19/22 Range/Units 10:29 10:29 10:29 WBC 6.4 (4.8-10.8) X10*3/uL RBC 4.31 (4.20-5.50) X10*6/uL Hgb 12.4 (12.0-16.0) g/dl Hct 37.8 (37.0-47.0) % MCV 87.7 (80.0-98.0) fL MCH 28.8 (27.0-33.0) pg MCHC 32.8 (31.0-35.0) g/dl RDW 14.3 (11.0-16.0) % Plt Count 262 (160-400) X10*3/uL MPV 9.9 (9.4-12.3) fL Immature Gran % (Auto) 0.5 H (0.0-0.4) % Neut % (Auto) 69.0 (45-73) % Lymph % (Auto) 19.9 L (20-40) % [place] % (Auto) 8.7 (2-11) % Eos % (Auto) 1.6 (0-4) % Baso % (Auto) 0.3 (0-2) % Lymph # (Auto) 1.3 (1.2-4.9) X10*3/uL [place] # (Auto) 0.6 (0.1-1.2) X10*3/uL Eos # (Auto) 0.1 (0.0-0.4) X10*3/uL Baso # (Auto) 0.0 (0.0-0.2) X10*3/uL Abs Immat Gran (auto) 0.03 (0.00-0.03) X10*3/uL Absolute Neuts (auto) 4.4 (2.0-8.3) x10*3/uL Absolute Nucleated RBC 0.000 (0.0-0.012) X10*3/uL Nucleated RBC % (auto) 0.0 (0.0-0.2) /100WBC Sodium 134 L (135-145) mmol/L Potassium 3.9 (3.3-5.1) mmol/L Chloride 101 (96-108) mmol/L Carbon Dioxide 25 (22-29) mmol/L Anion Gap 12 (12-20) BUN 11 (9-16) mg/dL Creatinine 0.92 (0.5-1.4) mg/dL Estim Creat Clear Calc 70.1 Estimated GFR > 60 Random Glucose 114 (60-115) mg/dL Calcium 9.1 (8.4-10.2) mg/dL Troponin I High Sens < 3.5 (<3.5-17.0) ng/L Influenza Type A (PCR) (Negative) Influenza Type B (PCR) (Negative) RSV RNA Qual (PCR) (Negative) SARS-CoV-2 RNA (RT-PCR) (Negative) 02/19/22 Range/Units 10:29 WBC (4.8-10.8) X10*3/uL RBC (4.20-5.50) X10*6/uL Hgb (12.0-16.0) g/dl Hct (37.0-47.0) % MCV (80.0-98.0) fL MCH (27.0-33.0) pg MCHC (31.0-35.0) g/dl RDW (11.0-16.0) % Plt Count (160-400) X10*3/uL MPV (9.4-12.3) fL Immature Gran % (Auto) (0.0-0.4) % Neut % (Auto) (45-73) % Lymph % (Auto) (20-40) % [place] % (Auto) (2-11) % Eos % (Auto) (0-4) % Baso % (Auto) (0-2) % Lymph # (Auto) (1.2-4.9) X10*3/uL [place] # (Auto) (0.1-1.2) X10*3/uL Eos # (Auto) (0.0-0.4) X10*3/uL Baso # (Auto) (0.0-0.2) X10*3/uL Abs Immat Gran (auto) (0.00-0.03) X10*3/uL Absolute Neuts (auto) (2.0-8.3) x10*3/uL Absolute Nucleated RBC (0.0-0.012) X10*3/uL Nucleated RBC % (auto) (0.0-0.2) /100WBC Sodium (135-145) mmol/L Potassium (3.3-5.1) mmol/L Chloride (96-108) mmol/L Carbon Dioxide (22-29) mmol/L Anion Gap (12-20) BUN (9-16) mg/dL Creatinine (0.5-1.4) mg/dL Estim Creat Clear Calc Estimated GFR Random Glucose (60-115) mg/dL Calcium (8.4-10.2) mg/dL Troponin I High Sens (<3.5-17.0) ng/L Influenza Type A (PCR) NEGATIVE (Negative) Influenza Type B (PCR) NEGATIVE (Negative) RSV RNA Qual (PCR) POSITIVE A (Negative) SARS-CoV-2 RNA (RT-PCR) NEGATIVE (Negative) Independent Interpretation I performed an independent interpretation of an: EKG (normal sinus rhythm rate of [address] or twave changes) and Plain X-Ray (my interpretation is no infiltrate) Discharge Plan Discharge Clinical Impression: RSV (respiratory syncytial virus infection) Patient Disposition: Home, Self-Care Prescriptions: No Action famotidine [Pepcid] 20 mg tablet 20 mg PO BEDTIME Qty: 30 3RF folic acid 1 mg tablet 1 mg PO DAILY methotrexate sodium 2.5 mg tablet 12.5 mg PO QWEEK citalopram 40 mg tablet 40 mg PO QAM selenium sulfide 2.25 % shampoo topical fluconazole 150 mg tablet PO gabapentin 400 mg capsule 400 mg PO BEDTIME hydroxyzine pamoate 25 mg capsule 25 mg PO TID PRN (Reason: anxiety) ondansetron HCl 4 mg tablet 4 mg PO Q6H PRN (Reason: nausea/vomiting) gabapentin 100 mg capsule 100 mg PO TID PRN (Reason: pain) docusate sodium 100 mg capsule 100 mg PO BEDTIME Qty: 90 3RF Citrucel 500 mg tablet 500 mg PO DAILY Qty: 90 2RF Rx Instructions: take it with full glass of water hydrocortisone [Anusol-HC] 2.5 % cream with perineal applicator 1 appl TN BID-QID PRN (Reason: hemorrhoids) Qty: 30 3RF Rx Instructions: use as directed omeprazole 40 mg capsule,delayed release(DR/EC) 40 mg PO DAILY Qty: 90 3RF hydrocortisone 2.5 % ointment 1 appl topical BID Qty: 28.35 1RF sennosides [Natural Senna Laxative] 8.6 mg tablet 8.6 mg PO BEDTIME Qty: 90 3RF prednisone 20 mg tablet 20 mg PO DAILY Referrals: Maximino Jung MD [Primary Care Provider] - 1 week
[2022-02-19 10:51] LABS: Anion Gap 12 (12-20); Blood Urea Nitrogen 11 mg/dL (9-16); Calcium 9.1 mg/dL (8.4-10.2); Carbon Dioxide 25 mmol/L (22-29); Chloride 101 mmol/L (96-108); Creatinine Clr Calc Pharmacy 70.1; Estimated Glomerular Filt Rate > 60; Glucose Random 114 mg/dL (60-115); Potassium 3.9 mmol/L (3.3-5.1); Sodium 134 mmol/L (135-145)
[2022-02-19 10:56] VITALS: BP 111/81; PULSE 78; RESP 16; TEMP 36.7; O2SAT 97
[2022-02-19] MEDS: Albuterol/Iprat 2.5/0.5MG 3 ML AMPUL.NEB INHALE (10:58)
[2022-02-19 10:59] VITALS: PULSE 84; RESP 18; O2SAT 96
[2022-02-19 11:12] LABS: Influenza A PCR NEGATIVE (Negative); Influenza B PCR NEGATIVE (Negative); Resp Syncy Virus RNA Qual PCR POSITIVE (Negative); SARS COV2 PCR INHOUSE NEGATIVE (Negative)
[2022-02-19 11:22] LABS: Troponin-I High Sensitivity < 3.5 ng/L (<3.5-17.0)
--- NOTE | 2022-02-19 11:51 | ED_ITS ---
HPI - Chest Pain General Chief Complaint: Chest Pain Stated Complaint: chest pain Time Seen by Provider: 02/19/22 10:40 Source: patient Mode of arrival: ambulatory Limitations: no limitations Related Data Home Medications Medication Instructions Recorded Confirmed citalopram 40 mg tablet 40 mg PO QAM 02/10/20 06/11/21 fluconazole 150 mg tablet mg PO 02/10/20 05/26/20 folic acid 1 mg tablet 1 mg PO DAILY 02/10/20 06/11/21 gabapentin 100 mg capsule 100 mg PO TID PRN pain 02/10/20 06/11/21 gabapentin 400 mg capsule 400 mg PO BEDTIME 02/10/20 06/11/21 hydroxyzine pamoate 25 mg capsule 25 mg PO TID PRN anxiety 02/10/20 06/11/21 methotrexate sodium 2.5 mg tablet 12.5 mg PO QWEEK 02/10/20 06/11/21 ondansetron HCl 4 mg tablet 4 mg PO Q6H PRN nausea/vomiting 02/10/20 06/11/21 selenium sulfide 2.25 % shampoo topical 02/10/20 05/26/20 prednisone 20 mg tablet 20 mg PO DAILY 12/15/21 Previous Rx's Medication Instructions Recorded famotidine 20 mg tablet (Pepcid) 20 mg PO BEDTIME #30 tabs 07/12/21 docusate sodium 100 mg capsule 100 mg PO BEDTIME #90 caps 07/27/21 hydrocortisone 2.5 % topical cream 1 appl ND BID-QID PRN hemorrhoids 07/27/21 with perineal applicator #30 grams (Anusol-HC) hydrocortisone 2.5 % topical 1 appl topical BID #28.35 grams 07/27/21 ointment methylcellulose (laxative) 500 mg 500 mg PO DAILY #90 tabs 07/27/21 tablet (Citrucel) omeprazole 40 mg capsule,delayed 40 mg PO DAILY #90 caps 07/27/21 release sennosides 8.6 mg tablet (Natural 8.6 mg PO BEDTIME constipation #90 11/19/21 Senna Laxative) tabs albuterol sulfate 90 mcg/actuation 2 puff inhalation 6XD PRN 02/19/22 aerosol inhaler shortness of breath or wheezing #8.5 grams Allergies Allergy/AdvReac Type Severity Reaction Status Date / Time NSAIDS (Non-Steroidal Allergy Mild Abdominal Verified 02/19/22 10:16 Anti-Inflamma Pain PMFSH Past Medical History Medical History Acid reflux Anxiety Arthritis YUE I (cervical intraepithelial neoplasia I) Depression GERD (gastroesophageal reflux disease) Hiatal hernia IBS (irritable bowel syndrome) Rheumatoid arthritis Surgical History History of bilateral tubal ligation History of biopsy (03/2017) History of endometrial ablation History of esophagogastroduodenoscopy (EGD) Hx of colonoscopy Family History Family History Mother Breast cancer Social History Social History Household Members Other:: sister Are you a primary urgent care technician to a significant other at home: No Do you presently have visiting nurse or other home services: No Alcohol intake: never Patient Tobacco Use Status: Former Tobacco user Substance Use Type: Marijuana Advance Directives: No Advance Directives Information Provided: No Sexual orientation: Straight/Heterosexual Gender identity: Female Physical Exam Vital Signs: Vital Signs: Last Vital Signs Temp 98.1 F 02/19/22 10:56 Pulse 84 02/19/22 10:59 Resp 18 02/19/22 10:59 BP 111/81 02/19/22 10:56 Pulse Ox 97 02/19/22 10:56 O2 Del Method 02/19/22 10:56 BMI result Body Mass Index 27.9 Course Reevaluation(s) Reevaluation #1: moving better air, still with wheeze Time: 11:52 Medications Administered Discontinued Medications Generic Name Dose Route Start Last Admin Trade Name Freq PRN Reason Stop Dose Admin Albuterol/Ipratropium 3 ml 02/19/22 10:47 02/19/22 10:58 Albuterol/Iprat 2.5/0.5mg 3 Ml Ampul.Neb INHALE 02/19/22 10:48 3 ml ONCE ONE Administration Medical Decision Making Lab Data Result Diagrams: 02/19/22 10:29 02/19/22 10:29 Labs: Lab Results 02/19/22 02/19/22 02/19/22 Range/Units 10:29 10:29 10:29 WBC 6.4 (4.8-10.8) X10*3/uL RBC 4.31 (4.20-5.50) X10*6/uL Hgb 12.4 (12.0-16.0) g/dl Hct 37.8 (37.0-47.0) % MCV 87.7 (80.0-98.0) fL MCH 28.8 (27.0-33.0) pg MCHC 32.8 (31.0-35.0) g/dl RDW 14.3 (11.0-16.0) % Plt Count 262 (160-400) X10*3/uL MPV 9.9 (9.4-12.3) fL Immature Gran % (Auto) 0.5 H (0.0-0.4) % Neut % (Auto) 69.0 (45-73) % Lymph % (Auto) 19.9 L (20-40) % Glades % (Auto) 8.7 (2-11) % Eos % (Auto) 1.6 (0-4) % Baso % (Auto) 0.3 (0-2) % Lymph # (Auto) 1.3 (1.2-4.9) X10*3/uL Glades # (Auto) 0.6 (0.1-1.2) X10*3/uL Eos # (Auto) 0.1 (0.0-0.4) X10*3/uL Baso # (Auto) 0.0 (0.0-0.2) X10*3/uL Abs Immat Gran (auto) 0.03 (0.00-0.03) X10*3/uL Absolute Neuts (auto) 4.4 (2.0-8.3) x10*3/uL Absolute Nucleated RBC 0.000 (0.0-0.012) X10*3/uL Nucleated RBC % (auto) 0.0 (0.0-0.2) /100WBC Sodium 134 L (135-145) mmol/L Potassium 3.9 (3.3-5.1) mmol/L Chloride 101 (96-108) mmol/L Carbon Dioxide 25 (22-29) mmol/L Anion Gap 12 (12-20) BUN 11 (9-16) mg/dL Creatinine 0.92 (0.5-1.4) mg/dL Estim Creat Clear Calc 70.1 Estimated GFR > 60 Random Glucose 114 (60-115) mg/dL Calcium 9.1 (8.4-10.2) mg/dL Troponin I High Sens < 3.5 (<3.5-17.0) ng/L Influenza Type A (PCR) (Negative) Influenza Type B (PCR) (Negative) RSV RNA Qual (PCR) (Negative) SARS-CoV-2 RNA (RT-PCR) (Negative) 02/19/22 Range/Units 10:29 WBC (4.8-10.8) X10*3/uL RBC (4.20-5.50) X10*6/uL Hgb (12.0-16.0) g/dl Hct (37.0-47.0) % MCV (80.0-98.0) fL MCH (27.0-33.0) pg MCHC (31.0-35.0) g/dl RDW (11.0-16.0) % Plt Count (160-400) X10*3/uL MPV (9.4-12.3) fL Immature Gran % (Auto) (0.0-0.4) % Neut % (Auto) (45-73) % Lymph % (Auto) (20-40) % Glades % (Auto) (2-11) % Eos % (Auto) (0-4) % Baso % (Auto) (0-2) % Lymph # (Auto) (1.2-4.9) X10*3/uL Glades # (Auto) (0.1-1.2) X10*3/uL Eos # (Auto) (0.0-0.4) X10*3/uL Baso # (Auto) (0.0-0.2) X10*3/uL Abs Immat Gran (auto) (0.00-0.03) X10*3/uL Absolute Neuts (auto) (2.0-8.3) x10*3/uL Absolute Nucleated RBC (0.0-0.012) X10*3/uL Nucleated RBC % (auto) (0.0-0.2) /100WBC Sodium (135-145) mmol/L Potassium (3.3-5.1) mmol/L Chloride (96-108) mmol/L Carbon Dioxide (22-29) mmol/L Anion Gap (12-20) BUN (9-16) mg/dL Creatinine (0.5-1.4) mg/dL Estim Creat Clear Calc Estimated GFR Random Glucose (60-115) mg/dL Calcium (8.4-10.2) mg/dL Troponin I High Sens (<3.5-17.0) ng/L Influenza Type A (PCR) NEGATIVE (Negative) Influenza Type B (PCR) NEGATIVE (Negative) RSV RNA Qual (PCR) POSITIVE A (Negative) SARS-CoV-2 RNA (RT-PCR) NEGATIVE (Negative) Discharge Plan Discharge Clinical Impression: RSV (respiratory syncytial virus infection) Patient Disposition: Home, Self-Care Prescriptions: New albuterol sulfate 90 mcg/actuation HFA aerosol inhaler 2 puff inhalation 6XD PRN (Reason: shortness of breath or wheezing) Qty: 8.5 0RF No Action famotidine [Pepcid] 20 mg tablet 20 mg PO BEDTIME Qty: 30 3RF folic acid 1 mg tablet 1 mg PO DAILY methotrexate sodium 2.5 mg tablet 12.5 mg PO QWEEK citalopram 40 mg tablet 40 mg PO QAM selenium sulfide 2.25 % shampoo topical fluconazole 150 mg tablet PO gabapentin 400 mg capsule 400 mg PO BEDTIME hydroxyzine pamoate 25 mg capsule 25 mg PO TID PRN (Reason: anxiety) ondansetron HCl 4 mg tablet 4 mg PO Q6H PRN (Reason: nausea/vomiting) gabapentin 100 mg capsule 100 mg PO TID PRN (Reason: pain) docusate sodium 100 mg capsule 100 mg PO BEDTIME Qty: 90 3RF Citrucel 500 mg tablet 500 mg PO DAILY Qty: 90 2RF Rx Instructions: take it with full glass of water hydrocortisone [Anusol-HC] 2.5 % cream with perineal applicator 1 appl ND BID-QID PRN (Reason: hemorrhoids) Qty: 30 3RF Rx Instructions: use as directed omeprazole 40 mg capsule,delayed release(DR/EC) 40 mg PO DAILY Qty: 90 3RF hydrocortisone 2.5 % ointment 1 appl topical BID Qty: 28.35 1RF sennosides [Natural Senna Laxative] 8.6 mg tablet 8.6 mg PO BEDTIME Qty: 90 3RF prednisone 20 mg tablet 20 mg PO DAILY Referrals: Maximino Jung MD [Primary Care Provider] - 1 week
--- NOTE | 2022-02-19 12:10 | PC.NURSE ---
pt a&ox, vss, pt inhaler called into pharmacy.
== END 2022-02-19 12:11 | disposition home or self-care (01) ==
PROVIDERS: Emergency Provider Emergency Medicine; PCP Internal Medicine
DX: R06.2 Wheezing (principal); B97.4 Respiratory syncytial virus as the cause of diseases classified elsewhere; Z20.822 Contact with and (suspected) exposure to COVID-19; F12.90 Cannabis use, unspecified, uncomplicated
CPT/HCPCS: 0241U; 71045; 80048; 84484; 85025; 93005; 94640; 99284

== ENCOUNTER 2022-05-10 11:44 | Outpatient (REF) | payer OTHER, SELFPAY ==
[2022-05-13 05:24] LABS: HPV mRNA E6/E7 rflx Not Detected (Not Detected)
== END 2022-05-10 11:45 | disposition home or self-care (01) ==
LOC: HO.LNP 11:44
PROVIDERS: PCP Internal Medicine; Visit Provider Obstetrics & Gynecology
DX: Z01.419 Encounter for gynecological examination (general) (routine) without abnormal findings (principal)
CPT/HCPCS: 87624; 88142

== ENCOUNTER → 2022-06-07 10:50 | Outpatient (BNVA) | payer OTHER, SELFPAY | PROVIDERS: PCP Internal Medicine; Visit Provider Nurse Practitioner Family | DX: K21.9 Gastro-esophageal reflux disease without esophagitis (principal); K58.1 Irritable bowel syndrome with constipation; K44.9 Diaphragmatic hernia without obstruction or gangrene; K31.1 Adult hypertrophic pyloric stenosis | CPT/HCPCS: 99212 ==

== ENCOUNTER 2022-06-22 12:47 | Outpatient (REF) | payer OTHER, SELFPAY ==
--- NOTE | ~2022-06-22 | MM_ITS ---
EXAMINATION: MM SCREENING DIGITAL BREAST TOMOSYNTHESIS, BILATERAL CLINICAL INFORMATION: Screening. Asymptomatic. The lifetime risk of breast cancer based on the Tyrer-Cuzick Model is 11.2%. COMPARISON: Mammography: March 19, 2021 and studies dating back to December 25, 2015 TECHNIQUE: Digital breast tomosynthesis is performed in both the craniocaudal and mediolateral oblique views along with computer-aided detection (CAD). Synthesized 2D images are generated from the tomosynthesis. FINDINGS: The breasts are heterogeneously dense, which may obscure small masses (ACR BI-RADS breast composition Category c). No new abnormal dominant mass is appreciated. No region of architectural distortion is seen. About the deep lateral aspect of the right breast there are a few calcifications present for which spot magnification views are recommended. MM/MM tomosynthesis screening BI IMPRESSION: Right breast calcifications for further evaluation with spot magnification views. ASSESSMENT: BI-RADS 0: Incomplete - Need Additional Imaging Evaluation RECOMMENDATION: 1. Additional views of the right breast 2. Targeted ultrasound if warranted after review of the additional views. 3. Radiology department staff will contact the patient for additional imaging. This patient's information was entered into a reminder system with a target due date for their next mammogram.
== END 2022-06-22 12:48 | disposition home or self-care (01) ==
LOC: HO.MAMMO 12:47
PROVIDERS: PCP Internal Medicine; Visit Provider Obstetrics & Gynecology
DX: Z12.31 Encounter for screening mammogram for malignant neoplasm of breast (principal)
CPT/HCPCS: 77063; 77067

== ENCOUNTER 2022-06-29 09:03 | Outpatient (REF) | payer OTHER, SELFPAY ==
--- NOTE | ~2022-06-29 | MM_ITS ---
EXAMINATION: MM DIAGNOSTIC DIGITAL MAMMOGRAPHY, RIGHT CLINICAL INFORMATION: Calcifications about the lateral aspect of the right breast. COMPARISON: Mammography: 03/19/2021 and studies dating back to 12/25/2015. TECHNIQUE: Digital mammography is performed in the following views: Spot magnification views in craniocaudal and 90 degree mediolateral projections. FINDINGS: The breasts are heterogeneously dense, which may obscure small masses (ACR BI-RADS breast composition Category c). The calcifications do not layer on 90 degree mediolateral view. The calcifications may be vascular in nature with no suspicious linear or branching forms identified. Recommend 6 month follow up right breast mammography to include spot magnification views. Results are provided to the patient at time of visit by the technologist. MM/MM added views RT IMPRESSION: Probable benign right breast calcifications. ASSESSMENT: BI-RADS 3: Probably Benign RECOMMENDATION: Diagnostic mammography in 6 months. This patient's information was entered into a reminder system with a target due date for their next mammogram.
== END 2022-06-29 09:04 | disposition home or self-care (01) ==
LOC: HO.MAMMO 09:03
PROVIDERS: PCP Internal Medicine; Visit Provider Obstetrics & Gynecology
DX: R92.1 Mammographic calcification found on diagnostic imaging of breast (principal)
CPT/HCPCS: 77065

== ENCOUNTER 2022-06-30 11:56 | Day surgery (SDC) | payer OTHER, SELFPAY ==
[2022-06-28 10:52] VITALS: BMI 27.1
--- NOTE | 2022-06-29 14:16 | P.CONAN_ITS ---
HPI - Anesthesia Eval Consult details Narrative: 52yo F for Upper Endoscopy PMFSH Active Problems Active Problems: All Active Problems (Updated 06/07/22 @ 11:28 by Paula Brady [facility]) Pyloric stenosis (Acute) Complex ovarian cyst (Acute) GERD (gastroesophageal reflux disease) (Acute) IBS (irritable bowel syndrome) (Acute) Hiatal hernia (Acute) Abnormal uterine bleeding (AUB) (Acute) Cervical low risk human papillomavirus (HPV) DNA test positive (Acute) Well woman exam (Acute) Breast pain, right (Acute) Fibrocystic changes of right breast (Acute) Past Medical History Medical History Acid reflux Anxiety Arthritis YUE I (cervical intraepithelial neoplasia I) Depression GERD (gastroesophageal reflux disease) Hiatal hernia IBS (irritable bowel syndrome) Pyloric stenosis Rheumatoid arthritis Family History Family History Mother Breast cancer Family history of problems with anesthesia: No Surgical History Surgical History History of bilateral tubal ligation History of biopsy (03/2017) History of endometrial ablation History of esophagogastroduodenoscopy (EGD) Hx of colonoscopy History of Problems with Anesthesia: No Social History Social History Household Members Other:: sister Are you a primary care technician to a significant other at home: No Do you presently have visiting nurse or other home services: No Alcohol intake: never Patient Tobacco Use Status: Former Tobacco user Tobacco use type: Cigarette Substance Use Type: Marijuana Sexual orientation: Straight/Heterosexual Gender identity: Female Meds Allergies Allergy/AdvReac Type Severity Reaction Status Date / Time NSAIDS (Non-Steroidal Allergy Mild Abdominal Verified 06/30/22 12:07 Anti-Inflamma Pain Home Medications Medication Instructions Recorded Confirmed Last Taken Type citalopram 40 mg tablet 40 mg PO QAM 02/10/20 06/30/22 07/13/21 History folic acid 1 mg tablet 1 mg PO DAILY 02/10/20 06/30/22 Unknown History gabapentin 100 mg capsule 100 mg PO TID PRN pain 02/10/20 06/30/22 Unknown History gabapentin 400 mg capsule 400 mg PO BEDTIME 02/10/20 06/30/22 Unknown History methotrexate sodium 2.5 mg tablet 12.5 mg PO QWEEK 02/10/20 06/30/22 Unknown History methylcellulose (laxative) 500 mg 500 mg PO DAILY 06/30/22 06/30/22 Unknown History tablet (Fiber Therapy (methylcellulose)) Exam Exam Date and Time: June 29, 2022 1416 Height,Weight and Vital Signs: Height 5 ft 3 in Weight 69.598 kg Pertinent Lab Results Pertinent Lab Results: Laboratory Tests 02/19/22 02/19/22 10:29 10:29 WBC 6.4 Hgb 12.4 Hct 37.8 Plt Count 262 Sodium 134 L Potassium 3.9 Chloride 101 Carbon Dioxide 25 BUN 11 Creatinine 0.92 Assessment and Plan Assessment Anesthesia Assessment: Chart Reviewed Final Anesthetic Review Family History of Problems with Anesthesia: No History of Problems with Anesthesia: No
[2022-06-30 12:04] VITALS: BMI 27.4
[2022-06-30 12:22] VITALS: BP 137/49; PULSE 71; RESP 16; TEMP 36.2; O2SAT 97
[2022-06-30] MEDS: Lactated Ringers 1,000 ML 100 ML IVCONT (12:23)
--- NOTE | 2022-06-30 12:31 | HO.ANESPROP2 ---
[facility] Active Problems Active Problems: All Active Problems (Updated 06/07/22 @ 11:28 by aPula Brady, [facility]) Pyloric stenosis (Acute) Complex ovarian cyst (Acute) GERD (gastroesophageal reflux disease) (Acute) IBS (irritable bowel syndrome) (Acute) Hiatal hernia (Acute) Abnormal uterine bleeding (AUB) (Acute) Cervical low risk human papillomavirus (HPV) DNA test positive (Acute) Well woman exam (Acute) Breast pain, right (Acute) Fibrocystic changes of right breast (Acute) Past Medical History Medical History Acid reflux Anxiety Arthritis YUE I (cervical intraepithelial neoplasia I) Depression GERD (gastroesophageal reflux disease) Hiatal hernia IBS (irritable bowel syndrome) Pyloric stenosis Rheumatoid arthritis Family History Family History Mother Breast cancer Family history of problems with anesthesia: No Surgical History Surgical History History of bilateral tubal ligation History of biopsy (03/2017) History of endometrial ablation History of esophagogastroduodenoscopy (EGD) Hx of colonoscopy History of Problems with Anesthesia: No Social History Social History Household Members Other:: sister Are you a primary pet care attendant to a significant other at home: No Do you presently have visiting nurse or other home services: No Alcohol intake: never Patient Tobacco Use Status: Former Tobacco user Tobacco use type: Cigarette Smoked in Last 30 Days: No Use of substances other than those prescribed or required for medical reasons: Yes Substance Use Type: Marijuana Substance Use Frequency: Daily Are you DNR?: No Advance Directives: No Advance Directives Information Provided: Yes Sexual orientation: Straight/Heterosexual Gender identity: Female Meds Allergies Allergy/AdvReac Type Severity Reaction Status Date / Time NSAIDS (Non-Steroidal Allergy Mild Abdominal Verified 06/30/22 12:07 Anti-Inflamma Pain Active Medications: Current Medications Lactated Ringer's (Lr) 1,000 mls @ 100 mls/hr IVCONT .Q10H [facility] Home Medications Medication Instructions Recorded Confirmed Last Taken Type citalopram 40 mg tablet 40 mg PO QAM 02/10/20 06/30/22 07/13/21 History folic acid 1 mg tablet 1 mg PO DAILY 02/10/20 06/30/22 Unknown History gabapentin 100 mg capsule 100 mg PO TID PRN pain 02/10/20 06/30/22 Unknown History gabapentin 400 mg capsule 400 mg PO BEDTIME 02/10/20 06/30/22 Unknown History methotrexate sodium 2.5 mg tablet 12.5 mg PO QWEEK 02/10/20 06/30/22 Unknown History methylcellulose (laxative) 500 mg 500 mg PO DAILY 06/30/22 06/30/22 Unknown History tablet (Fiber Therapy (methylcellulose)) Exam Exam Date and Time: June 30, 2022 1231 Height,Weight and Vital Signs: Height 5 ft 3 in Weight 70.307 kg Last Vital Signs Temp 97.1 F 06/30/22 12:22 Pulse 71 06/30/22 12:22 Resp 16 06/30/22 12:22 BP 137/49 L 06/30/22 12:22 Pulse Ox 97 06/30/22 12:22 O2 Del Method Room Air 06/30/22 12:22 Airway Mallampati Class: II TM Dist: >3cm Neck ROM: Full Heart: RRR Lungs: CTA Assessment and Plan Final Anesthetic Review Family History of Problems with Anesthesia: No History of Problems with Anesthesia: No ASA Class: II Final Preanesthetic Review: Meds/Allgs Chart Reviewed, Consent Obtained/Reviewed and Anes Risks/Benef Reviewed Patient Risk: Low Procedure Risk: Low Anesthetic Plan Anesthetic Plan: MAC: Disposition: Standard PACU
--- NOTE | 2022-06-30 12:49 | MHC.SHP ---
Pre-Procedural Eval Section A Date of Service: 06/30/22 Section B Chief Complaint: Adult hypertrophic pyloric stenosis, reflux Relevant Family History (Specify if Yes): No Relevant Social History: None Present Medications: see Short Stay Collaborative assessment Medical History: Significant History (Acid reflux Anxiety Arthritis YUE I (cervical intraepithelial neoplasia I) Depression GERD (gastroesophageal reflux disease) Hiatal hernia IBS (irritable bowel syndrome) Pyloric stenosis Rheumatoid arthritis) History of Previous Operations: Relevant previous surgery/procedure and date(s) (History of bilateral tubal ligation History of biopsy (03/2017) History of endometrial ablation History of esophagogastroduodenoscopy (EGD) Hx of colonoscopy) Allergies: Allergies Allergy/AdvReac Type Severity Reaction Status Date / Time NSAIDS (Non-Steroidal Allergy Mild Abdominal Verified 06/30/22 12:07 Anti-Inflamma Pain Review of Systems Sugical H&P ROS: Negative: Constitution, Cardiovascular, Respiratory, Neurological, Psychiatric, Hem-Onc, Allergic/Immunologic, Gastrointestinal, Genitourinary, Musculoskeletal, Integumentary, Endocrine and Eyes/Ears/Nose/Throat Exam Surgical H&P Exam: Normal: HEENT, Normal: Heart, Normal: Lungs, Normal: Extremities, Normal: Abdomen, Normal: Skin and Normal: Neurological Plan Diagnosis/Plan: Unchanged I have reviewed the history and physical and performed a pertinent physical examination on my patient. No changes have occurred unless specified. Time Spent With Patient Time: Total time managing care of this patient today ____ minutes.
--- NOTE | 2022-06-30 13:06 | PC.NURSE ---
HERSON POLANCO FOR PATIENT TO GO INTO ENDO PROCEDURE WEARING BOTH CONTACT LENSES.
--- NOTE | 2022-06-30 13:24 | W.PM.OPN ---
Operative Note Operative Note Date of Service: 06/30/22 Narrative: Procedure Description: EGD Indication: [] Anesthesia: MAC FLEXIBLE TRANSORAL UPPER GASTROINTESTINAL ENDOSCOPY UPPER ENDOSCOPY Consent: Indications for the procedure and potential complications of bleeding, perforation, reaction to medications and missed diagnosis were discussed with the patient and informed consent was obtained. Instrument: Olympus GIF H 190 J mid size upper endoscope Monitoring: Vital signs and clinical assessment, continuous EKG monitoring, Pulse oximetry, Carbon Dioxide monitoring and blood pressure monitoring were done throughout the procedure. Procedure: The patient was placed in the left lateral decubitis position and pre-procedure medications were administered and a bite block was placed. The endoscope was inserted into the mouth and advanced under direct vision to the third part of duodenum. A careful inspection was made as the upper endoscope was withdrawn including a retroflexed examination of the proximal stomach; Findings and interventions are described below. Findings: Larynx:normal Esophagus: GE junction at 40? cm, diaphragm hiatus at 40 cm, normal mucosa Stomach: Patchy erythema and atrophy. Grade 2 flap valve on retroflexed examination of the cardia. The pyloric outlet was stenosed, so dilated to 11 mm using a wire guided technique after I was able to pass the stricture with gentle pressure Duodenum: Normal bulb and descending duodenum, Intervention: pyloric balloon dilation Impression: Pyloric outlet obstruction and stricture PLAN: 1/ Recommend rept EGD in 4-6 weeks with kenalog and try to up titrate the dilation
[2022-06-30 13:34] VITALS: BP 101/63; PULSE 50; RESP 16; TEMP 36.1; O2SAT 99
[2022-06-30 13:50] VITALS: BP 105/67; PULSE 52; RESP 16; O2SAT 98
[2022-06-30 14:05] VITALS: BP 108/71; PULSE 52; RESP 16; TEMP 36.2; O2SAT 99
== END 2022-06-30 14:59 | disposition home or self-care (01) ==
PROVIDERS: PCP Internal Medicine; Visit Provider Internal Medicine Gastroenterology
PROC: 0DJ08ZZ Inspection of Upper Intestinal Tract, Via Natural or Artificial Opening Endoscopic (ICD-10-PCS; CPT 43235; principal; 2022-06-30 14:20)
DX: K31.1 Adult hypertrophic pyloric stenosis (principal); K21.9 Gastro-esophageal reflux disease without esophagitis; K44.9 Diaphragmatic hernia without obstruction or gangrene; K58.9 Irritable bowel syndrome, unspecified; M19.90 Unspecified osteoarthritis, unspecified site; M06.9 Rheumatoid arthritis, unspecified; F32.A Depression, unspecified; F41.1 Generalized anxiety disorder; F12.90 Cannabis use, unspecified, uncomplicated; Z79.899 Other long term (current) drug therapy; Z88.8 Allergy status to other drugs, medicaments and biological substances; Z98.51 Tubal ligation status; Z87.891 Personal history of nicotine dependence
CPT/HCPCS: 43245; C1726

== ENCOUNTER 2022-08-01 15:07 | Emergency (ER) | payer OTHER, SELFPAY ==
[2022-08-01 15:33] VITALS: BP 130/66; PULSE 79; RESP 18; TEMP 37.1; O2SAT 97; BMI 27.5
--- NOTE | 2022-08-01 15:36 | ECG_ITS ---
Test Reason : vomiting Blood Pressure : / mmHG Vent. Rate : 075 BPM Atrial Rate : 075 BPM P-R Int : 148 ms QRS Dur : 082 ms QT Int : 382 ms P-R-T Axes : 075 058 020 degrees QTc Int : 426 ms Normal sinus rhythm with sinus arrhythmia Normal ECG When compared with ECG of 19-FEB-2022 10:21, No significant change was found Referred By: Milton Fernandez Electronically Signed By:ANJELICA PAEZ MD
--- NOTE | 2022-08-01 15:37 | ED.GENADULT ---
HPI - General Adult General Chief complaint: Abdominal Pain Stated complaint: vomiting,diarrhea,dehydrated Time Seen by Provider: 08/01/22 18:03 Source: patient, RN notes reviewed and old records reviewed Mode of arrival: ambulatory Limitations: no limitations History of Present Illness HPI narrative: 52-year-old female past medical history significant for GERD, IBS, hiatal hernia presents for evaluation of abdominal pain vomiting Patient reports that she woke up around 2:00 a.m. this morning ?not feeling well. ? She states that she then vomited 3 or 4 times before going back to bed Patient reports that she woke up with some upper abdominal burning and some nausea diarrhea Denies any fevers or chills She follows with Dr. Yañez for GI. She had a balloon dilatation of and hypertrophic pyloric stenosis on 06/30/[address] Yañez Denies any chest pain or shortness of breath Related Data Home Medications Medication Instructions Recorded Confirmed citalopram 40 mg tablet 40 mg PO QAM 02/10/20 06/30/22 folic acid 1 mg tablet 1 mg PO DAILY 02/10/20 06/30/22 gabapentin 100 mg capsule 100 mg PO TID PRN pain 02/10/20 06/30/22 gabapentin 400 mg capsule 400 mg PO BEDTIME 02/10/20 06/30/22 methotrexate sodium 2.5 mg tablet 12.5 mg PO QWEEK 02/10/20 06/30/22 methylcellulose (laxative) 500 mg 500 mg PO DAILY 06/30/22 06/30/22 tablet (Fiber Therapy (methylcellulose)) Previous Rx's Medication Instructions Recorded hydrocortisone 2.5 % topical 1 appl topical BID #28.35 grams 07/27/21 ointment omeprazole 40 mg capsule,delayed 40 mg PO DAILY #90 caps 07/27/21 release ondansetron 4 mg disintegrating 4 mg PO Q8H PRN nausea and 08/01/22 tablet vomiting #20 tabs Allergies Allergy/AdvReac Type Severity Reaction Status Date / Time NSAIDS (Non-Steroidal Allergy Mild Abdominal Verified 06/30/22 12:07 Anti-Inflamma Pain Review of Systems Constitutional: Constitutional: Reports as per HPI, Denies fatigue, Denies fever(s) and Denies headache(s) ENT: Denies headache(s) Cardiovascular: Cardiovascular: Denies chest pain and Denies dyspnea Respiratory: Respiratory: Denies cough and Denies dyspnea Gastrointestinal: Gastrointestinal: Reports abdominal pain, Denies constipation, Reports diarrhea, Reports nausea and Reports vomiting Genitourinary: Genitourinary: Denies dysuria Neurologic: Denies headache(s) and Denies focal weakness Endocrine: Endocrine: Denies fatigue PMFSH Past Medical History Medical History Acid reflux Anxiety Arthritis YUE I (cervical intraepithelial neoplasia I) Depression GERD (gastroesophageal reflux disease) Hiatal hernia IBS (irritable bowel syndrome) Pyloric stenosis Rheumatoid arthritis Surgical History History of bilateral tubal ligation History of biopsy (03/2017) History of endometrial ablation History of esophagogastroduodenoscopy (EGD) Hx of colonoscopy Family History Family History Mother Breast cancer Social History Social History Household Members Other:: sister Are you a primary wild animal caretaker to a significant other at home: No Do you presently have visiting nurse or other home services: No Alcohol intake: never Patient Tobacco Use Status: Former Tobacco user Tobacco use type: Cigarette Substance Use Type: Marijuana Advance Directives: No Advance Directives Information Provided: No Sexual orientation: Straight/Heterosexual Gender identity: Female Physical Exam ED Vital Signs: Vital Signs - 24 hr 08/01/22 15:33 08/01/22 18:18 Temperature 98.8 F 98.6 F Pulse Rate 79 76 Respiratory Rate 18 16 Blood Pressure 130/66 121/76 Pulse Oximetry 97 98 Oxygen Delivery Method Room Air Room Air BMI result Body Mass Index 27.5 Const General: healthy appearing, comfortable, no acute distress, alert and awake Nutritional Appearance: well nourished Orientation/consciousness: patient oriented x3 HENMT Head: Yes normocephalic and Yes atraumatic Eyes Eyelids: Yes eyelids normal Conjunctivae: conjunctivae normal Sclerae: sclerae normal Corneas: corneas normal Pupils: Equal, round and reactive pupils present EOM: EOMs intact bilaterally Neck Neck: Yes full ROM Resp Effort & Inspection: normal respiratory effort, able to speak in complete sentences, no audible wheezes and not labored Auscultation: clear to auscultation bilaterally Cardio Rate: regular rate Rhythm: regular rhythm GI Inspection: No distended Palpation (GI): Soft to palpation, not firm, nontender, no guarding and not rigid Auscultation: normoactive bowel sounds Skin General skin exam: no rashes or lesions noted and elasticity normal Neuro General: patient oriented x3 Cranial nerves: Yes Equal, round and reactive pupils present and Yes Bilaterally intact EOM present Cognition (Neuro): normal cognition Extrem Other: Moving all extremities well without any obvious deformities Course Course Course Narrative: RME: 52 yold female with pmh oF IBS and Gastritis presents to the ED for upper abdominal pain with vomitting. labs and EKG ordered Reevaluation(s) Reevaluation #1: Patient reports feeling better after treatment, again, her labs are reviewed and reassuring, she is stable for discharge at this time. Will discharge her with Zofran and she will follow-up with her GI specialist Time: 20:16 Medications Administered Discontinued Medications Generic Name Dose Route Start Last Admin Trade Name Abida PRN Reason Stop Dose Admin Al Hydroxide/Mg Hydroxide 30 ml 08/01/22 18:14 08/01/22 18:23 Magnesium Hydrox/Alum Hydrox 30 Ml Oral.Susp PO 08/01/22 18:15 30 ml ONCE ONE Administration Sodium Chloride 1,000 mls @ 999 mls/hr 08/01/22 18:15 08/01/22 19:25 Ns IV 08/01/22 19:15 Infused .Q1H1M ERROL Infusion Ondansetron HCl 4 mg 08/01/22 18:14 08/01/22 18:23 Ondansetron Hcl 4 Mg/2 Ml Vial IVPUSH 08/01/22 18:15 4 mg ONCE ONE Administration Medical Decision Making Medical Decision Making [facility] Narrative: 52-year-old female presents for evaluation of upper abdominal pain that started today. She has no significant abdominal tenderness including the right upper quadrant. LFTs are within normal limits, less likely. Early disease. Patient does describe her pain as burning. Will start a GI cocktail. She does report history of ulcers. Patient reflux for influenza given the body aches, abdominal pain and vomiting. She has no leukocytosis, no evidence of UTI. I do not see any indication for emergent imaging at this time. I did add on an ESR and CRP to see if this may be related to IBS, but I feel this is less likely. Differential Diagnosis Gastroenteritis Acute nausea/vomiting Peptic ulcer disease Influenza B Dehydration IBS Lab Data MDM Lab Attestation statement: I reviewed the patient's lab results. 08/01/22 16:12 08/01/22 16:12 Labs: Lab Results 08/01/22 08/01/22 08/01/22 Range/Units 16:12 16:12 16:12 WBC 9.2 (4.8-10.8) X10*3/uL RBC 4.55 (4.20-5.50) X10*6/uL Hgb 13.0 (12.0-16.0) g/dl Hct 40.6 (37.0-47.0) % MCV 89.2 (80.0-98.0) fL MCH 28.6 (27.0-33.0) pg MCHC 32.0 (31.0-35.0) g/dl RDW 13.4 (11.0-16.0) % Plt Count 232 (160-400) X10*3/uL MPV 10.6 (9.4-12.3) fL Immature Gran % (Auto) 0.2 (0.0-0.4) % Neut % (Auto) 86.8 H (45-73) % Lymph % (Auto) 8.3 L (20-40) % [place] % (Auto) 4.3 (2-11) % Eos % (Auto) 0.2 (0-4) % Baso % (Auto) 0.2 (0-2) % Lymph # (Auto) 0.8 L (1.2-4.9) X10*3/uL [place] # (Auto) 0.4 (0.1-1.2) X10*3/uL Eos # (Auto) 0.0 (0.0-0.4) X10*3/uL Baso # (Auto) 0.0 (0.0-0.2) X10*3/uL Abs Immat Gran (auto) 0.02 (0.00-0.03) X10*3/uL Absolute Neuts (auto) 7.9 (2.0-8.3) x10*3/uL Absolute Nucleated RBC 0.000 (0.0-0.012) X10*3/uL Nucleated RBC % (auto) 0.0 (0.0-0.2) /100WBC ESR (0-20) MM/HR PT 12.0 (10.0-13.1) SEC INR 1.0 (0.9-1.1) APTT 30.6 (26.0-36.4) SEC Sodium 141 (135-145) mmol/L Potassium 4.3 (3.3-5.1) mmol/L Chloride 105 (96-108) mmol/L Carbon Dioxide 30 H (22-29) mmol/L Anion Gap 10 L (12-20) BUN 10 (9-16) mg/dL Creatinine 0.84 (0.5-1.4) mg/dL Estim Creat Clear Calc 75.3 Estimated GFR > 60 Random Glucose 99 (60-115) mg/dL Calcium 9.7 D (8.4-10.2) mg/dL Total Bilirubin 0.6 (0.0-1.0) mg/dL AST 23 (5-31) U/L ALT 19 (0-31) U/L Alkaline Phosphatase 87 (39-117) U/L Troponin I High Sens (<3.5-17.0) ng/L C-Reactive Protein 0.35 (< or = 0.50) mg/dL Total Protein 8.6 H (6.5-8.0) g/dL Albumin 4.1 (3.5-5.0) g/dL Lipase 14 (8-78) U/L Beta HCG, Quant 5 mIU/mL Urine Color Urine Appearance Urine pH (5.0-9.0) Ur Specific [place] (1.005-1.025) Urine Protein (Neg-Trace) mg/dL Urine Glucose (UA) (Negative) mg/dL Urine Ketones (Negative) mg/dL Urine Blood (Negative) Urine Nitrite (Negative) Ur Leukocyte Esterase (Negative) Urine RBC (0-2) /HPF Urine WBC (0-5) /HPF Ur Squamous Epith Cells (0-2) /HPF Urine Bacteria (None Seen) Hyaline Casts (0-2) /LPF Influenza Type A (TITO) (Negative) Influenza Type B (TITO) (Negative) Influenza A & B Note 05/29/23 05/29/23 05/29/23 Range/Units 16:12 16:12 16:44 WBC (4.8-10.8) X10*3/uL RBC (4.20-5.50) X10*6/uL Hgb (12.0-16.0) g/dl Hct (37.0-47.0) % MCV (80.0-98.0) fL MCH (27.0-33.0) pg MCHC (31.0-35.0) g/dl RDW (11.0-16.0) % Plt Count (160-400) X10*3/uL MPV (9.4-12.3) fL Immature Gran % (Auto) (0.0-0.4) % Neut % (Auto) (45-73) % Lymph % (Auto) (20-40) % [place] % (Auto) (2-11) % Eos % (Auto) (0-4) % Baso % (Auto) (0-2) % Lymph # (Auto) (1.2-4.9) X10*3/uL [place] # (Auto) (0.1-1.2) X10*3/uL Eos # (Auto) (0.0-0.4) X10*3/uL Baso # (Auto) (0.0-0.2) X10*3/uL Abs Immat Gran (auto) (0.00-0.03) X10*3/uL Absolute Neuts (auto) (2.0-8.3) x10*3/uL Absolute Nucleated RBC (0.0-0.012) X10*3/uL Nucleated RBC % (auto) (0.0-0.2) /100WBC ESR 23 H (0-20) MM/HR PT (10.0-13.1) SEC INR (0.9-1.1) APTT (26.0-36.4) SEC Sodium (135-145) mmol/L Potassium (3.3-5.1) mmol/L Chloride (96-108) mmol/L Carbon Dioxide (22-29) mmol/L Anion Gap (12-20) BUN (9-16) mg/dL Creatinine (0.5-1.4) mg/dL Estim Creat Clear Calc Estimated GFR Random Glucose (60-115) mg/dL Calcium (8.4-10.2) mg/dL Total Bilirubin (0.0-1.0) mg/dL AST (5-31) U/L ALT (0-31) U/L Alkaline Phosphatase (39-117) U/L Troponin I High Sens < 2.7 (<3.5-17.0) ng/L C-Reactive Protein (< or = 0.50) mg/dL Total Protein (6.5-8.0) g/dL Albumin (3.5-5.0) g/dL Lipase (8-78) U/L Beta HCG, Quant mIU/mL Urine Color Yellow Urine Appearance Clear Urine pH >= 9.0 (5.0-9.0) Ur Specific [place] 1.025 (1.005-1.025) Urine Protein Trace (Neg-Trace) mg/dL Urine Glucose (UA) Negative (Negative) mg/dL Urine Ketones 15 (Negative) mg/dL Urine Blood Negative (Negative) Urine Nitrite Negative (Negative) Ur Leukocyte Esterase Trace H (Negative) Urine RBC 0-2 (0-2) /HPF Urine WBC 0-5 (0-5) /HPF Ur Squamous Epith Cells 0-2 (0-2) /HPF Urine Bacteria None Seen (None Seen) Hyaline Casts 0-2 (0-2) /LPF Influenza Type A (TIOT) (Negative) Influenza Type B (TITO) (Negative) Influenza A & B Note 08/01/22 Range/Units 18:26 WBC (4.8-10.8) X10*3/uL RBC (4.20-5.50) X10*6/uL Hgb (12.0-16.0) g/dl Hct (37.0-47.0) % MCV (80.0-98.0) fL MCH (27.0-33.0) pg MCHC (31.0-35.0) g/dl RDW (11.0-16.0) % Plt Count (160-400) X10*3/uL MPV (9.4-12.3) fL Immature Gran % (Auto) (0.0-0.4) % Neut % (Auto) (45-73) % Lymph % (Auto) (20-40) % [place] % (Auto) (2-11) % Eos % (Auto) (0-4) % Baso % (Auto) (0-2) % Lymph # (Auto) (1.2-4.9) X10*3/uL [place] # (Auto) (0.1-1.2) X10*3/uL Eos # (Auto) (0.0-0.4) X10*3/uL Baso # (Auto) (0.0-0.2) X10*3/uL Abs Immat Gran (auto) (0.00-0.03) X10*3/uL Absolute Neuts (auto) (2.0-8.3) x10*3/uL Absolute Nucleated RBC (0.0-0.012) X10*3/uL Nucleated RBC % (auto) (0.0-0.2) /100WBC ESR (0-20) MM/HR PT (10.0-13.1) SEC INR (0.9-1.1) APTT (26.0-36.4) SEC Sodium (135-145) mmol/L Potassium (3.3-5.1) mmol/L Chloride (96-108) mmol/L Carbon Dioxide (22-29) mmol/L Anion Gap (12-20) BUN (9-16) mg/dL Creatinine (0.5-1.4) mg/dL Estim Creat Clear Calc Estimated GFR Random Glucose (60-115) mg/dL Calcium (8.4-10.2) mg/dL Total Bilirubin (0.0-1.0) mg/dL AST (5-31) U/L ALT (0-31) U/L Alkaline Phosphatase (39-117) U/L Troponin I High Sens (<3.5-17.0) ng/L C-Reactive Protein (< or = 0.50) mg/dL Total Protein (6.5-8.0) g/dL Albumin (3.5-5.0) g/dL Lipase (8-78) U/L Beta HCG, Quant mIU/mL Urine Color Urine Appearance Urine pH (5.0-9.0) Ur Specific [place] (1.005-1.025) Urine Protein (Neg-Trace) mg/dL Urine Glucose (UA) (Negative) mg/dL Urine Ketones (Negative) mg/dL Urine Blood (Negative) Urine Nitrite (Negative) Ur Leukocyte Esterase (Negative) Urine RBC (0-2) /HPF Urine WBC (0-5) /HPF Ur Squamous Epith Cells (0-2) /HPF Urine Bacteria (None Seen) Hyaline Casts (0-2) /LPF Influenza Type A (TITO) Negative (Negative) Influenza Type B (TITO) Negative (Negative) Influenza A & B Note See Note Discharge Plan Discharge Clinical Impression: Abdominal pain with vomiting Patient Disposition: Home, Self-Care Instructions: Acute Nausea and Vomiting (ED) Additional Instructions: Your blood work was reassuring. Your symptoms are most likely related to a virus Use Zofran as needed for nausea and vomiting Drink lots of fluids, but small sips at a time to help prevent further vomiting Follow-up with your GI doctor, Dr. Yañez and your primary doctor Prescriptions: New ondansetron 4 mg tablet,disintegrating 4 mg PO Q8H PRN (Reason: nausea and vomiting) Qty: 20 0RF No Action Fiber Therapy (m-cellulose) 500 mg tablet 500 mg PO DAILY folic acid 1 mg tablet 1 mg PO DAILY methotrexate sodium 2.5 mg tablet 12.5 mg PO QWEEK citalopram 40 mg tablet 40 mg PO QAM gabapentin 400 mg capsule 400 mg PO BEDTIME gabapentin 100 mg capsule 100 mg PO TID PRN (Reason: pain) omeprazole 40 mg capsule,delayed release(DR/EC) 40 mg PO DAILY Qty: 90 3RF hydrocortisone 2.5 % ointment 1 appl topical BID Qty: 28.35 1RF Referrals: Sree Yañez MD [Physician] - Interventions: ED Discharge Assessment Last Done: 08/01/22 20:23 Discharge Date/Time: 08/01/22 20:24
[2022-08-01 16:16] LABS: MANUAL DIFF FLAG NO
[2022-08-01 16:19] LABS: Basophils Percent Auto 0.2 % (0-2); Eosinophils Percent Auto 0.2 % (0-4); Hematocrit 40.6 % (37.0-47.0); Imm Gran Abs Auto 0.02 X10*3/uL (0.00-0.03); Imm Gran Pct Auto 0.2 % (0.0-0.4); Lymphocytes Absolute Auto 0.8 X10*3/uL (1.2-4.9); Lymphocytes Percent Auto 8.3 % (20-40); Mean Corpuscular Hemoglobin 28.6 pg (27.0-33.0); Mean Corpuscular Volume 89.2 fL (80.0-98.0); Mean Platelet Volume 10.6 fL (9.4-12.3); Monocytes Absolute Auto 0.4 X10*3/uL (0.1-1.2); Monocytes Percent Auto 4.3 % (2-11); Neutrophils Absolute Auto 7.9 x10*3/uL (2.0-8.3); Neutrophils Percent Auto 86.8 % (45-73); Platelet Count 232 X10*3/uL (160-400); Red Blood Count 4.55 X10*6/uL (4.20-5.50); Red Cell Distribution Width 13.4 % (11.0-16.0); White Blood Count 9.2 X10*3/uL (4.8-10.8)
[2022-08-01 16:26] LABS: Partial Thromboplastin Time 30.6 SEC (26.0-36.4)
[2022-08-01 16:40] LABS: Alanine Aminotransferase 19 U/L (0-31); Albumin Level 4.1 g/dL (3.5-5.0); Alkaline Phosphatase 87 U/L (39-117); Anion Gap 10 (12-20); Aspartate Amino Transferase 23 U/L (5-31); Bilirubin Total 0.6 mg/dL (0.0-1.0); Blood Urea Nitrogen 10 mg/dL (9-16); Calcium 9.7 mg/dL (8.4-10.2); Carbon Dioxide 30 mmol/L (22-29); Chloride 105 mmol/L (96-108); Creatinine Clr Calc Pharmacy 75.3; Estimated Glomerular Filt Rate > 60; Glucose Random 99 mg/dL (60-115); Lipase 14 U/L (8-78); Potassium 4.3 mmol/L (3.3-5.1); Sodium 141 mmol/L (135-145); Total Protein 8.6 g/dL (6.5-8.0)
[2022-08-01 16:41] LABS: HCG Quantitative 5 mIU/mL
[2022-08-01 16:49] LABS: Troponin-I High Sensitivity < 2.7 ng/L (<3.5-17.0)
[2022-08-01 16:50] LABS: Appearance Urine Clear; Color Urine Yellow; Glucose Urine UA Negative (Negative); Leukocyte Esterase Urine Trace (Negative); Nitrite Urine Negative (Negative); PH >= 9.0 (5.0-9.0); Specific Gravity - Urine 1.025 (1.005-1.025); UMIC TRIGGER UACC YES; Urine Blood Negative (Negative); Urine Ketones 15 mg/dL (Negative); Urine Protein Trace mg/dL (Neg-Trace)
[2022-08-01 16:52] LABS: Bacteria Urine None Seen (None Seen); Hyaline Casts Urine 0-2 /LPF (0-2); RBC Urine 0-2 /HPF (0-2); Squamous Epithelial Cell Urine 0-2 /HPF (0-2); WBC Urine 0-5 /HPF (0-5)
[2022-08-01 18:18] VITALS: BP 121/76; PULSE 76; RESP 16; TEMP 37; O2SAT 98
[2022-08-01] MEDS: 0.9 % Sodium Chloride 1,000 ML 999 ML IV (18:21)
[2022-08-01] MEDS: Magnesium Hydrox/Alum Hydrox 30 ML ORAL.SUSP PO (18:23)
[2022-08-01] MEDS: ondansetron HCL 4 MG/2 ML VIAL IVPUSH (18:23)
[2022-08-01 18:41] LABS: C Reactive Protein 0.35 mg/dL (< or = 0.50)
[2022-08-01 18:47] LABS: IDNOW Serial# 6674DD1D; Influenza A Negative (Negative); Influenza B2 Negative (Negative)
--- NOTE | 2022-08-01 19:26 | PC.NURSE ---
report received from Lisa rodriguez Pt is resting on stretcher at this time, endorses pain in abdomen still with minimal relief with pain medications. PA aware
[2022-08-01 20:19] LABS: Erythrocyte Sedimentation Rate 23 MM/HR (0-20)
== END 2022-08-01 20:24 | disposition home or self-care (01) ==
PROVIDERS: Physician Assistant; Emergency Provider Emergency Medicine; PCP Internal Medicine
DX: R10.10 Upper abdominal pain, unspecified (principal); R11.10 Vomiting, unspecified; I49.9 Cardiac arrhythmia, unspecified; Z79.899 Other long term (current) drug therapy
CPT/HCPCS: 36415; 80053; 81001; 83690; 84484; 84702; 85025; 85610; 85652; 85730; 86140; 87502; 93005; 96361; 96374; 99284; 99285; J2405

== ENCOUNTER 2022-08-18 09:13 | Day surgery (SDC) | payer OTHER, SELFPAY ==
[2022-08-16 12:51] VITALS: BMI 27.1
--- NOTE | 2022-08-17 10:27 | HO.ANESPROP2 ---
Documented by User: Olivia Acharya NP 08/17/22 10:30 HPI - Anesthesia Eval Consult details Narrative: 52yo F for Upper Endoscopy PMFSH Active Problems Active Problems: All Active Problems (Updated 08/02/22 @ 00:00 by Nilton Clifton) Well woman exam (Acute) Breast pain, right (Acute) Fibrocystic changes of right breast (Acute) Cervical low risk human papillomavirus (HPV) DNA test positive (Acute) Abnormal uterine bleeding (AUB) (Acute) Complex ovarian cyst (Acute) Pyloric stenosis (Acute) GERD (gastroesophageal reflux disease) (Acute) IBS (irritable bowel syndrome) (Acute) Hiatal hernia (Acute) Past Medical History Medical History Acid reflux Anxiety Arthritis YUE I (cervical intraepithelial neoplasia I) Depression GERD (gastroesophageal reflux disease) Hiatal hernia IBS (irritable bowel syndrome) Pyloric stenosis Rheumatoid arthritis Family History Family History Mother Breast cancer Family history of problems with anesthesia: No Surgical History Surgical History History of bilateral tubal ligation History of biopsy (03/2017) History of dilatation and curettage History of endometrial ablation History of esophagogastroduodenoscopy (EGD) Hx of colonoscopy History of Problems with Anesthesia: No Social History Social History Household Members Other:: sister Are you a primary memory care program resident to a significant other at home: No Do you presently have visiting nurse or other home services: No Alcohol intake: never Patient Tobacco Use Status: Former Tobacco user Tobacco use type: Cigarette Use of substances other than those prescribed or required for medical reasons: Yes Substance Use Type: Marijuana Substance Use Frequency: Daily Have you been hit, kicked, punched, or otherwise hurt by someone within the past year? If so, by whom?: No Are you DNR?: No Advance Directives: No Advance Directives Information Provided: Yes Recently lost weight without trying: Yes How much weight loss: 2-13 pounds Eating poorly because of decreased appetite: Yes Nutrition screen score: 4 Nutrition Risks: Poor intake 0-25% >4 days Patient : No Sexual orientation: Straight/Heterosexual Gender identity: Female Meds Allergies Allergy/AdvReac Type Severity Reaction Status Date / Time NSAIDS (Non-Steroidal Allergy Mild Abdominal Verified 06/30/22 12:07 Anti-Inflamma Pain Home Medications Medication Instructions Recorded Confirmed Last Taken Type citalopram 40 mg tablet 40 mg PO QAM 02/10/20 08/16/22 07/13/21 History folic acid 1 mg tablet 1 mg PO DAILY 02/10/20 08/16/22 Unknown History gabapentin 100 mg capsule 100 mg PO TID PRN pain 02/10/20 08/16/22 Unknown History gabapentin 400 mg capsule 400 mg PO BEDTIME 02/10/20 08/16/22 Unknown History methotrexate sodium 2.5 mg tablet 12.5 mg PO QWEEK 02/10/20 08/16/22 Unknown History methylcellulose (laxative) 500 mg 500 mg PO DAILY 06/30/22 08/16/22 Unknown History tablet (Fiber Therapy (methylcellulose)) Exam Exam Date and Time: August 17, 2022 1027 Height,Weight and Vital Signs: Height 5 ft 3 in Weight 69.4 kg Narrative Narrative: EKG 07/2022 Vent. Rate : 075 BPM ? ? Atrial Rate : 075 BPM ?? P-R Int : 148 ms? QRS Dur : 082 ms ? ? QT Int : 382 ms ? ? ? P-R-T Axes : 075 058 020 degrees ?? QTc Int : 426 ms ? Normal sinus rhythm with sinus arrhythmia Normal ECG When compared with ECG of 19-FEB-2022 10:21, No significant change was found Assessment and Plan Assessment Anesthesia Assessment: Chart Reviewed Final Anesthetic Review Family History of Problems with Anesthesia: No History of Problems with Anesthesia: No Documented by User: Rakesh Pan MD 08/18/22 10:42 [facility] Past Medical History Medical History Acid reflux Anxiety Arthritis YUE I (cervical intraepithelial neoplasia I) Depression GERD (gastroesophageal reflux disease) Hiatal hernia IBS (irritable bowel syndrome) Pyloric stenosis Rheumatoid arthritis Family History Family History Mother Breast cancer Surgical History Surgical History History of bilateral tubal ligation History of biopsy (03/2017) History of dilatation and curettage History of endometrial ablation History of esophagogastroduodenoscopy (EGD) Hx of colonoscopy Social History Social History Household Members Other:: sister Are you a primary memory care program resident to a significant other at home: No Do you presently have visiting nurse or other home services: No Alcohol intake: never Patient Tobacco Use Status: Former Tobacco user Tobacco use type: Cigarette Use of substances other than those prescribed or required for medical reasons: Yes Substance Use Type: Marijuana Substance Use Frequency: Daily Have you been hit, kicked, punched, or otherwise hurt by someone within the past year? If so, by whom?: No Are you DNR?: No Advance Directives: No Advance Directives Information Provided: Yes Recently lost weight without trying: Yes How much weight loss: 2-13 pounds Eating poorly because of decreased appetite: Yes Nutrition screen score: 4 Nutrition Risks: Poor intake 0-25% >4 days Patient : No Sexual orientation: Straight/Heterosexual Gender identity: Female Meds Allergies Allergy/AdvReac Type Severity Reaction Status Date / Time NSAIDS (Non-Steroidal Allergy Mild Abdominal Verified 06/30/22 12:07 Anti-Inflamma Pain Home Medications Medication Instructions Recorded Confirmed Last Taken Type citalopram 40 mg tablet 40 mg PO QAM 02/10/20 08/16/22 07/13/21 History folic acid 1 mg tablet 1 mg PO DAILY 02/10/20 08/16/22 Unknown History gabapentin 100 mg capsule 100 mg PO TID PRN pain 02/10/20 08/16/22 Unknown History gabapentin 400 mg capsule 400 mg PO BEDTIME 02/10/20 08/16/22 Unknown History methotrexate sodium 2.5 mg tablet 12.5 mg PO QWEEK 02/10/20 08/16/22 Unknown History methylcellulose (laxative) 500 mg 500 mg PO DAILY 06/30/22 08/16/22 Unknown History tablet (Fiber Therapy (methylcellulose)) Exam Airway Mallampati Class: I TM Dist: >3cm Neck ROM: Full Loose/Missing/Broken Teeth: Yes Assessment and Plan Assessment Anesthesia Assessment: Anesthesia Plan Discussed Final Anesthetic Review NPO: Yes ASA Class: III Final Preanesthetic Review: No Changes in Pt Med Stat, Meds/Allgs Chart Reviewed, Consent Obtained/Reviewed and Anes Risks/Benef Reviewed Patient Risk: Intermediate Procedure Risk: Low Anesthetic Plan Anesthetic Plan: MAC: Disposition: Standard PACU
[2022-08-18 09:45] VITALS: BP 107/73; PULSE 59; RESP 18; TEMP 36.5; O2SAT 99; BMI 27.1
--- NOTE | 2022-08-18 10:04 | MHC.SHP ---
Pre-Procedural Eval Section A Date of Service: 08/18/22 Section B Chief Complaint: pyloric stenosis Relevant Family History (Specify if Yes): No Relevant Social History: Other (specify) (THC ) Present Medications: see Short Stay Collaborative assessment Medical History: Significant History (Acid reflux Anxiety Arthritis YUE I (cervical intraepithelial neoplasia I) Depression GERD (gastroesophageal reflux disease) Hiatal hernia IBS (irritable bowel syndrome) Pyloric stenosis Rheumatoid arthritis) History of Previous Operations: Relevant previous surgery/procedure and date(s) (History of bilateral tubal ligation History of biopsy (03/2017) History of dilatation and curettage History of endometrial ablation History of esophagogastroduodenoscopy (EGD) Hx of colonoscopy) Allergies: Allergies Allergy/AdvReac Type Severity Reaction Status Date / Time NSAIDS (Non-Steroidal Allergy Mild Abdominal Verified 06/30/22 12:07 Anti-Inflamma Pain Review of Systems Sugical H&P ROS: Negative: Constitution, Cardiovascular, Respiratory, Neurological, Psychiatric, Hem-Onc, Allergic/Immunologic, Gastrointestinal, Genitourinary, Musculoskeletal, Integumentary, Endocrine and Eyes/Ears/Nose/Throat Exam Surgical H&P Exam: Normal: HEENT, Normal: Heart, Normal: Lungs, Normal: Extremities, Normal: Abdomen, Normal: Skin and Normal: Neurological Plan Diagnosis/Plan: Unchanged I have reviewed the history and physical and performed a pertinent physical examination on my patient. No changes have occurred unless specified. Time Spent With Patient Time: Total time managing care of this patient today ____ minutes.
--- NOTE | 2022-08-18 10:41 | W.PM.OPN ---
Operative Note Operative Note Date of Service: 08/18/22 Narrative: Procedure Description: EGD Indication: pre pyloric stricture Anesthesia: MAC FLEXIBLE TRANSORAL UPPER GASTROINTESTINAL ENDOSCOPY UPPER ENDOSCOPY Consent: Indications for the procedure and potential complications of bleeding, perforation, reaction to medications and missed diagnosis were discussed with the patient and informed consent was obtained. Instrument: Olympus GIF H 190 J mid size upper endoscope Monitoring: Vital signs and clinical assessment, continuous EKG monitoring, Pulse oximetry, Carbon Dioxide monitoring and blood pressure monitoring were done throughout the procedure. Procedure: The patient was placed in the left lateral decubitis position and pre-procedure medications were administered and a bite block was placed. The endoscope was inserted into the mouth and advanced under direct vision to the third part of duodenum. A careful inspection was made as the upper endoscope was withdrawn including a retroflexed examination of the proximal stomach; Findings and interventions are described below. Findings: Larynx:normal Esophagus: GE junction at 40? cm, diaphragm hiatus at 40 cm, normal mucosa Stomach: Normal mucosa. Grade 2 flap valve on retroflexed examination of the cardia. Pre pyloric stricture noted, was able to gently get the scope past with some heme noted, then dilated with pyloric balloon to 14 mm using a wire Duodenum: Normal bulb and descending duodenum, Intervention: pre pyloric balloon dilation Impression: Pre Pyloric outlet obstruction and stricture PLAN: 1/ Recommend rept EGD in 4-6 weeks, patient refused kenalog today
[2022-08-18 10:43] VITALS: BP 115/75; PULSE 68; RESP 16; TEMP 36.8; O2SAT 99
[2022-08-18 10:58] VITALS: BP 123/71; PULSE 56; RESP 16; O2SAT 100
[2022-08-18 11:13] VITALS: BP 125/87; PULSE 72; RESP 16; TEMP 36.7; O2SAT 100
== END 2022-08-18 12:54 | disposition home or self-care (01) ==
PROVIDERS: PCP Internal Medicine; Visit Provider Internal Medicine Gastroenterology
PROC: 0DJ08ZZ Inspection of Upper Intestinal Tract, Via Natural or Artificial Opening Endoscopic (ICD-10-PCS; CPT 43235; principal; 2022-08-18 11:00)
DX: K31.1 Adult hypertrophic pyloric stenosis (principal); K21.9 Gastro-esophageal reflux disease without esophagitis; K44.9 Diaphragmatic hernia without obstruction or gangrene; K58.1 Irritable bowel syndrome with constipation; M06.9 Rheumatoid arthritis, unspecified; F32.A Depression, unspecified; F41.1 Generalized anxiety disorder; Z79.899 Other long term (current) drug therapy; Z88.8 Allergy status to other drugs, medicaments and biological substances; Z87.891 Personal history of nicotine dependence; F12.90 Cannabis use, unspecified, uncomplicated
CPT/HCPCS: 43249; C1726; J2250; J3301

== ENCOUNTER 2022-09-02 11:39 | Outpatient (REF) | payer OTHER, SELFPAY ==
[2022-09-02 14:04] LABS: Free T4 (Free Thyroxine) 0.95 ng/dL (0.71-1.85)
== END 2022-09-02 11:40 | disposition home or self-care (01) ==
LOC: HO.10HDL 11:39
PROVIDERS: Visit Provider Internal Medicine
DX: R63.4 Abnormal weight loss (principal); K21.9 Gastro-esophageal reflux disease without esophagitis; M06.9 Rheumatoid arthritis, unspecified
CPT/HCPCS: 36415; 84439; 84443

== ENCOUNTER 2022-09-10 16:36 | Emergency (ER) | payer OTHER, SELFPAY ==
[2022-09-10 16:38] VITALS: BP 133/89; PULSE 88; RESP 18; TEMP 36.7; O2SAT 98; BMI 24.1
--- NOTE | 2022-09-10 16:39 | ED.CHESTPAIN ---
HPI - Chest Pain General Chief Complaint: Upper Respiratory Symptoms Stated Complaint: congested cough,sob,chest pain Time Seen by Provider: 09/10/22 17:42 Source: patient Mode of arrival: ambulatory Limitations: no limitations History of Present Illness HPI narrative: 52yo female with history of RA on MTX, fibromyalgia here with green/yellow phlegm productive cough, chest congestion, head pressure x 1 week unrelieved with claritin and nasal spray. Had sick contact with grandson NO fevers, chills, diff breathing, leg swelling/leg pain, vomiting, diarrhea, skin rash. Related Data Home Medications Medication Instructions Recorded Confirmed citalopram 40 mg tablet 40 mg PO QAM 02/10/20 08/16/22 folic acid 1 mg tablet 1 mg PO DAILY 02/10/20 08/16/22 gabapentin 100 mg capsule 100 mg PO TID PRN pain 02/10/20 08/16/22 gabapentin 400 mg capsule 400 mg PO BEDTIME 02/10/20 08/16/22 methotrexate sodium 2.5 mg tablet 12.5 mg PO QWEEK 02/10/20 08/16/22 methylcellulose (laxative) 500 mg 500 mg PO DAILY 06/30/22 08/16/22 tablet (Fiber Therapy (methylcellulose)) Previous Rx's Medication Instructions Recorded hydrocortisone 2.5 % topical 1 appl topical BID #28.35 grams 07/27/21 ointment ondansetron 4 mg disintegrating 4 mg PO Q8H PRN nausea and 08/01/22 tablet vomiting #20 tabs omeprazole 40 mg capsule,delayed 40 mg PO DAILY #90 caps 09/01/22 release azithromycin 250 mg tablet See Rx Instructions PO .COMPLEX #6 09/10/22 tabs benzonatate 200 mg capsule 200 mg PO TID PRN cough #20 caps 09/10/22 Allergies Allergy/AdvReac Type Severity Reaction Status Date / Time NSAIDS (Non-Steroidal Allergy Mild Abdominal Verified 06/30/22 12:07 Anti-Inflamma Pain Review of Systems Review of Systems: Yes all other systems are reviewed and are negative Constitutional: Constitutional: Reports no additional constitutional complaints, Denies body ache(s), Denies chills, Denies fever(s), Reports headache(s) and Denies weakness Eyes: Eyes: Reports no additional eye complaints and Denies change in vision ENT: Reports system reviewed and no additional complaints, except as documented, Denies dizziness, Reports headache(s), Reports nasal congestion, Denies nasal discharge and Denies neck pain Cardiovascular: Cardiovascular: Reports no additional cardiovascular complaints, Reports chest pain, Denies leg edema and Denies dyspnea Respiratory: Respiratory: Reports no additional respiratory complaints, Reports cough and Denies dyspnea Gastrointestinal: Gastrointestinal: Reports no additional gastrointestinal complaints, Denies abdominal pain, Denies diarrhea, Denies nausea and Denies vomiting Genitourinary: Genitourinary: Reports no additional female genitourinary complaints and Denies urinary incontinence Musculoskeletal: Musculoskeletal: Reports no additional musculoskeletal complaints, Denies back pain, Denies arthralgias, Denies joint swelling, Denies neck pain, Denies numbness and Denies tingling Integumentary/Breasts: Skin/Breast: Reports system reviewed and no additional complaints, except as docu and Denies rash Neurologic: Reports system reviewed and no additional complaints, except as documented, Denies Abnormal speech present, Denies dizziness, Reports headache(s), Denies numbness, Denies tingling and Denies weakness PMFSH Past Medical History Attestation statement: The following information was validated with the patient. Source: old records reviewed and nursing notes reviewed Medical History Acid reflux Anxiety Arthritis YUE I (cervical intraepithelial neoplasia I) Depression GERD (gastroesophageal reflux disease) Hiatal hernia IBS (irritable bowel syndrome) Pyloric stenosis Rheumatoid arthritis Surgical History History of bilateral tubal ligation History of biopsy (03/2017) History of dilatation and curettage History of endometrial ablation History of esophagogastroduodenoscopy (EGD) Hx of colonoscopy Family History Family History Mother Breast cancer Social History Social History Household Members Other:: sister Are you a primary medicare compliance auditor to a significant other at home: No Do you presently have visiting nurse or other home services: No Alcohol intake: never Patient Tobacco Use Status: Former Tobacco user Tobacco use type: Cigarette Substance Use Type: Marijuana Advance Directives: No Advance Directives Information Provided: Yes Sexual orientation: Straight/Heterosexual Gender identity: Female Physical Exam Vital Signs: Vital Signs: Last Vital Signs Temp 98.1 F 09/10/22 16:38 Pulse 81 09/10/22 17:00 Resp 18 09/10/22 17:00 BP 133/89 09/10/22 16:38 Pulse Ox 98 09/10/22 16:38 O2 Del Method Room Air 09/10/22 16:38 BMI result Body Mass Index 24.1 Const: General: cooperative, healthy appearing, comfortable and no acute distress Orientation/consciousness: patient oriented x3 Limitations: no limitations HEENT: Head: Yes normal to inspection Ears: hearing grossly normal bilaterally and TM's normal bilaterally General nose exam: Normal external nose present Face and sinus: Yes normal facial exam Mouth: Normal oral and palatal mucosa present Throat: Yes posterior oropharynx normal, Yes tonsils normal and Yes uvula midline Eyes: General: appearance normal, both eyes and all related structures Pupils: Equal, round and reactive pupils present Neck: Neck: Yes normal visual inspection, Yes full ROM, Yes no lymphadenopathy and Yes no meningeal signs Chest: Chest palpation & inspection: normal inspection of the chest Resp: Other: slight exp wheezin g Effort & Inspection: normal respiratory effort Cardio: Rate: regular rate Rhythm: regular rhythm Peripheral pulses: Peripheral pulses 2+ throughout GI: Inspection: Yes normal to inspection Palpation (GI): Soft to palpation and nontender Auscultation: normal bowel sounds Back/Spine/Pelvis: Thoracic/Lumbar Spine: thoracic and lumbar spine normal to inspection Skin: General skin exam: no rashes or lesions noted Neuro: General: patient oriented x3, no meningeal signs, no focal motor deficits and normal sensation to monofilament Cranial nerves: Yes Equal, round and reactive pupils present Cognition (Neuro): normal cognition Speech: No Abnormal speech present Gait exam (Neuro): Normal gait present Motor exam (neuro): 5/5 motor strength present throughout Extrem: General: Yes normal to inspection, Yes no pedal edema and Yes no calf tenderness Course Course Course Narrative: RME: 52yo F w/PMHx anxiety, arthritis, GERD, IBS, RA, c/o cough, chest tightness/heaviness, wheezing, & mild SOB x 1 week. Admits chest is sore. denies fever, chills lungs CTA, VSS COVID/FLU, CXR, EKG, albuterol inhaler, tessalon pearls ordered Full HPI, ROS and PE to be performed by primary ED provider. Reevaluation(s) Reevaluation #1: Viral testing negative, CXR with no acute finding, ekg non ischemic. WIll treat with course of antibiotics, tessalon prn, albuterol prn Medications Administered Discontinued Medications Generic Name Dose Route Start Last Admin Trade Name Freq PRN Reason Stop Dose Admin Albuterol Sulfate 4 puff 09/10/22 16:41 09/10/22 16:59 Albuterol Sulfate 90 Mcg 8 Gm Inhaler INHALE 09/10/22 16:42 4 puff ONCE ONE Administration Benzonatate 100 mg 09/10/22 16:41 09/10/22 17:14 Benzonatate 100 Mg Capsule PO 09/10/22 16:42 100 mg ONCE ONE Administration Medical Decision Making Medical Decision Making MDM Narrative: 52yo female with history of RA on MTX here with complaints of one week of URI symptoms with chest congestion, wheezing, headache VSS Mild exp wheezing CXR, EKG, viral testing ordered from triage Given albuterol mdi, tessalon in triage Differential Diagnosis Differential Diagnoses: The differential diagnosis associated with the presentation includes PNA. viral syndrome, bronchitis low concern for PE (perc 0) Lab Data [facility] Lab Attestation statement: I reviewed the patient's lab results. Labs: Lab Results 09/10/22 09/10/22 09/10/22 Range/Units 17:18 17:18 17:18 COVID-19 (KIRSTIE) Negative (Negative) COVID-19 Clin Com See Note Influenza Type A (TITO) Negative (Negative) Influenza Type B (TITO) Negative (Negative) Influenza A & B Note See Note S. pyogenes GrpA TITO Negative (Negative) Independent Interpretation I performed an independent interpretation of an: Plain X-Ray Interpretation: I independetelty reviewed the x-ray and agree with rad report I indepedentely reviewed the EKG which shows NSR with rate 78 normal pr, normal qrs, normal qt Radiology Impression Discussion of test interpretation with radiology: I have reviewed the radiologist's reading. Radiologist Impression: [address] [address] XRay Report Signed Patient: Jolene Hameed MR#: [id number] : 1970 Acct:[id number] Age/Sex: 52 / F ADM Date: 09/10/22 Loc: HO.ED Attending Dr: Ordering Physician: Gretta Nunez Date of Service: 09/10/22 Procedure(s): XR chest 2V Accession Number(s): [id number] cc: Gretta Nunez~ EXAMINATION: XR CHEST CLINICAL INFORMATION: Reason for Exam cough, wheeze COMPARISON: Chest radiograph? 02/19/2022 TECHNIQUE: 2 views of the chest FINDINGS: Lines and tubes: None. Clear lungs. No pleural effusion. No pneumothorax. Unchanged cardiomediastinal silhouette. Dextroconvex curvature of the thoracolumbar spine. XR/XR chest 2V IMPRESSION: ? *? Clear lungs. ? Discharge Plan Discharge Clinical Impression: Bronchitis Patient Disposition: Home, Self-Care Instructions: Acute Bronchitis (ED) Additional Instructions: Use albuterol 2 puffs every 4 hours as needed for cough/wheezing Prescriptions: New azithromycin 250 mg tablet See Rx Instructions .ROUTE .COMPLEX Qty: 6 0RF Rx Instructions: For 250 mg dose pack: take 500 mg today (day 1), then 250 mg for 4 days (days 2-5) benzonatate 200 mg capsule 200 mg PO TID PRN (Reason: cough) Qty: 20 0RF No Action omeprazole 40 mg capsule,delayed release(DR/EC) 40 mg PO DAILY Qty: 90 3RF Fiber Therapy (m-cellulose) 500 mg tablet 500 mg PO DAILY ondansetron 4 mg tablet,disintegrating 4 mg PO Q8H PRN (Reason: nausea and vomiting) Qty: 20 0RF folic acid 1 mg tablet 1 mg PO DAILY methotrexate sodium 2.5 mg tablet 12.5 mg PO QWEEK citalopram 40 mg tablet 40 mg PO QAM gabapentin 400 mg capsule 400 mg PO BEDTIME gabapentin 100 mg capsule 100 mg PO TID PRN (Reason: pain) hydrocortisone 2.5 % ointment 1 appl topical BID Qty: 28.35 1RF Referrals: Maximino Jung MD [Primary Care Provider] - ED Physician,Generic [Physician] - 1 week
[2022-09-10 17:00] VITALS: PULSE 81; RESP 18; O2SAT 98
[2022-09-10 19:43] VITALS: BP 115/78; PULSE 68; RESP 16; O2SAT 98
== END 2022-09-10 19:45 | disposition home or self-care (01) ==
PROVIDERS: Emergency Provider Internal Medicine; PCP Internal Medicine
DX: J40 Bronchitis, not specified as acute or chronic (principal); R06.02 Shortness of breath; Z20.822 Contact with and (suspected) exposure to COVID-19; Z79.899 Other long term (current) drug therapy; Z87.891 Personal history of nicotine dependence; F12.90 Cannabis use, unspecified, uncomplicated
CPT/HCPCS: 71046; 87502; 87635; 87651; 93005; 94640; 99284; 99285

== ENCOUNTER 2022-10-21 08:54 | Outpatient (AMB) | payer OTHER, SELFPAY ==
[2022-10-21 09:00] VITALS: BP 106/71; PULSE 63; BMI 23.3
--- NOTE | 2022-10-21 09:00 | A.OFFVIS_ITS ---
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 Staying upright for minimum 3 hours after meals discussed with patient. Patient will go for upper endoscopy. Patient might need pyloric dilation again. IBS (irritable bowel syndrome) Patient continues back in 4 to with diarrhea then constipation. Patient feels like she does not empty her bowels completely. I will have her take MiraLax daily Hiatal hernia Pyloric stenosis History of pyloric stenosis. Dilation performed last in July of 2021. Will schedule patient for another endoscopy as she might need dilation again. Patient reports occasional dyspepsia without dysphagia or odynophagia. For procedure. All see patient after the procedure, sooner on as needed basis. Patient is agreeable to this plan and verbalizes understanding of instructions. She was given the opportunity to ask questions and all questions answered. ? Thank you for allowing me to participate in her care Plan Medications New polyethylene glycol 3350 (Miralax) 17 grams PO DAILY 100 ea 3RF Refilled docusate sodium 100 mg PO BEDTIME 90 caps 3RF K59.00 UPPER ENDOSCOPY Findings: Larynx:normal Esophagus: GE junction at 40? cm, diaphragm hiatus at 40 cm, normal mucosa Stomach: Normal mucosa. Grade 2 flap valve on retroflexed examination of the cardia. Pre pyloric stricture noted, was able to gently get the scope past with some heme noted, then dilated with pyloric balloon to 14 mm using a wire Duodenum: Normal bulb and descending duodenum, Intervention: pre pyloric balloon dilation Impression: Pre Pyloric outlet obstruction and stricture PLAN: 1/ Recommend rept EGD in 4-6 weeks, patient refused kenalog today TODAY'S VISIT Patient is here today for follow-up and to discuss upper endoscopy results. Patient had pre-pyloric balloon dilation. Reports that she is having no trouble swallowing, however when she eats she feels like she has to drink more in order to swallow better. Patient was recommended to return for upper endoscopy in 4-6 weeks. The time passed already. Will try to make 1st available appointment today. Patient reports abdominal bloating. She does not believe that she empties her bowels completely. With like to have a refill her MiraLax. Denies melena, hematochezia, unintentional weight loss or ribbon like stools. Patient denies dyspepsia or odynophagia. Reports that omeprazole is working well for her. Patient denies nausea or vomiting. [facility] Medical History Acid reflux Anxiety Arthritis YUE I (cervical intraepithelial neoplasia I) Depression GERD (gastroesophageal reflux disease) Hiatal hernia IBS (irritable bowel syndrome) Pyloric stenosis Rheumatoid arthritis Surgical History History of bilateral tubal ligation History of biopsy (03/2017) History of dilatation and curettage History of endometrial ablation History of esophagogastroduodenoscopy (EGD) Hx of colonoscopy Family History Mother Breast cancer Social History Household Members Other:: sister Are you a primary wild animal caretaker to a significant other at home: No Do you presently have visiting nurse or other home services: No Alcohol intake: never Patient Tobacco Use Status: Former Tobacco user Tobacco use type: Cigarette Substance Use Type: Marijuana Sexual orientation: Straight/Heterosexual Gender identity: Female Female Reproductive History Menstrual Age of Menarche: 14 Review of Systems Const Denies weight gain and Denies weight loss ENT Reports no additional complaints, Denies dysphagia and Denies odynophagia Card Reports no additional complaints Resp Reports no additional complaints GI Denies abdominal pain, Denies belching, Denies melena, Reports bloating, Denies change in bowel habits, Denies dysphagia, Denies excessive flatus, Denies dyspepsia, Denies heartburn, Denies diarrhea, Denies loose stools, Denies nausea, Denies odynophagia and Denies vomiting Reports no additional complaints Musc Reports no additional complaints Neuro Reports no additional complaints Psych Reports no additional complaints Endo Reports no additional complaints Physical Exam Vital Signs: Last Vital Signs Pulse 63 10/21/22 09:00 BP 106/71 10/21/22 09:00 BMI result Body Mass Index 23.3 Const General: healthy appearing, no acute distress and well developed Nutritional Appearance: well nourished Orientation/consciousness: patient oriented x3 HEENT Head: Yes normal to inspection, Yes normocephalic and Yes atraumatic Face and sinus: Yes normal facial exam Mouth: Normal oral and palatal mucosa present Throat: Yes posterior oropharynx normal, Yes tonsils normal and Yes uvula midline Eyes General: appearance normal, both eyes and all related structures Neck Neck: Yes normal visual inspection, Yes full ROM and Yes trachea midline Thyroid: Thyroid normal Resp Effort & Inspection: normal respiratory effort, able to speak in complete sentences, no tracheal deviation and symmetric chest movement Auscultation: clear to auscultation bilaterally Cardio Rate: regular rate Heart sounds: S1 normal heart sound present and S2 normal heart sound present GI Inspection: Yes normal to inspection and No distended Palpation (GI): Soft to palpation, not firm, nontender and No hepatosplenomegaly present Auscultation: normal bowel sounds General: Yes no CVA tenderness Back/Spine/Pelvis Back: no CVA tenderness Skin General skin exam: elasticity normal, turgor normal and dry skin Neuro General: patient oriented x3 Psych Appearance: grossly normal Mental Status: mental status grossly normal Speech and movement: Normal speech and movement present Assessment & Plan Assessment & Plan (1) Pyloric stenosis: Code(s): K31.1 - Adult hypertrophic pyloric stenosis Plan: Will schedule patient to repeat EGD (2) GERD (gastroesophageal reflux disease): Code(s): K21.9 - Gastro-esophageal reflux disease without esophagitis Qualifiers: Esophagitis presence: esophagitis presence not specified Qualified Code(s): K21.9 - Gastro-esophageal reflux disease without esophagitis Plan: Continue current treatment with omeprazole. Discussed with patient avoiding dietary triggers and late night snacking. Staying upright for minimum 3 hours after meals discussed with patient. (3) IBS (irritable bowel syndrome): Code(s): K58.9 - Irritable bowel syndrome without diarrhea Qualifiers: Irritable bowel syndrome type: with constipation Qualified Code(s): K58.1 - Irritable bowel syndrome with constipation Plan: Patient will continue taking MiraLax. I will add senna. Patient was encouraged to increase fluid intake and activity to promote better bowel motility. Discussed with patient low FODMAP diet. List of food recommended as well as list of food to avoid given to patient. I will see patient after the procedure, sooner on as needed basis. Patient is agreeable to this plan and verbalizes understanding of instructions. She was given the opportunity to ask questions and questions answered. Thank you for allowing me to participate in her care Medications: New sennosides (Natural Senna Laxative) 8.6 mg PO BEDTIME 90 tabs 3RF constipation K59.00 - Constipation, unspecified polyethylene glycol 3350 (Miralax) 17 grams PO DAILY 100 ea 3RF Coding Level of Care Code Est Pt Level 3 (37083) Diagnoses Pyloric stenosis K31.1 GERD (gastroesophageal reflux disease) K21.9 Esophagitis presence: esophagitis presence not specified IBS (irritable bowel syndrome) K58.1 Irritable bowel syndrome type: with constipation Time Spent (min) 30 Comment 20 minutes spent with patient and additional 10 minutes spent reviewing her records
== END 2022-10-21 09:16 | disposition home or self-care (01) ==
LOC: HO.HGI 08:54
PROVIDERS: PCP Internal Medicine; Visit Provider Nurse Practitioner Family
DX: K31.1 Adult hypertrophic pyloric stenosis (principal); K21.9 Gastro-esophageal reflux disease without esophagitis; K58.1 Irritable bowel syndrome with constipation
CPT/HCPCS: 99213

== ENCOUNTER → 2022-10-21 08:54 | Outpatient (BNVA) | payer OTHER, SELFPAY | PROVIDERS: PCP Internal Medicine; Visit Provider Nurse Practitioner Family | DX: K31.1 Adult hypertrophic pyloric stenosis (principal); K21.9 Gastro-esophageal reflux disease without esophagitis; K58.1 Irritable bowel syndrome with constipation | CPT/HCPCS: 99212 ==

== ENCOUNTER 2022-10-25 13:12 | Day surgery (SDC) | payer OTHER, SELFPAY ==
--- NOTE | 2022-10-25 12:41 | P.CONAN_ITS ---
HPI - Anesthesia Eval Consult details Narrative: egd ON LICENSE OF [facility] Active Problems Active Problems: All Active Problems (Updated 09/11/22 @ 00:13 by Nilton Clifton) Well woman exam (Acute) Breast pain, right (Acute) Fibrocystic changes of right breast (Acute) Cervical low risk human papillomavirus (HPV) DNA test positive (Acute) Abnormal uterine bleeding (AUB) (Acute) Complex ovarian cyst (Acute) Pyloric stenosis (Acute) GERD (gastroesophageal reflux disease) (Acute) IBS (irritable bowel syndrome) (Acute) Hiatal hernia (Acute) Past Medical History Medical History Acid reflux Anxiety Arthritis YUE I (cervical intraepithelial neoplasia I) Depression GERD (gastroesophageal reflux disease) Hiatal hernia IBS (irritable bowel syndrome) Pyloric stenosis Rheumatoid arthritis Family History Family History Mother Breast cancer Family history of problems with anesthesia: No Surgical History Surgical History History of bilateral tubal ligation History of biopsy (03/2017) History of dilatation and curettage History of endometrial ablation History of esophagogastroduodenoscopy (EGD) Hx of colonoscopy History of Problems with Anesthesia: No Social History Social History Household Members Other:: sister Are you a primary care information associate to a significant other at home: No Do you presently have visiting nurse or other home services: No Alcohol intake: never Patient Tobacco Use Status: Former Tobacco user Tobacco use type: Cigarette Substance Use Type: Marijuana Sexual orientation: Straight/Heterosexual Gender identity: Female Meds Allergies Allergy/AdvReac Type Severity Reaction Status Date / Time NSAIDS (Non-Steroidal Allergy Mild Abdominal Verified 10/21/22 09:01 Anti-Inflamma Pain Home Medications Medication Instructions Recorded Confirmed Last Taken Type citalopram 40 mg tablet 40 mg PO QAM 02/10/20 08/16/22 07/13/21 History folic acid 1 mg tablet 1 mg PO DAILY 02/10/20 08/16/22 Unknown History gabapentin 100 mg capsule 100 mg PO TID PRN pain 02/10/20 08/16/22 Unknown History gabapentin 400 mg capsule 400 mg PO BEDTIME 02/10/20 08/16/22 Unknown History methotrexate sodium 2.5 mg tablet 12.5 mg PO QWEEK 02/10/20 08/16/22 Unknown History methylcellulose (laxative) 500 mg 500 mg PO DAILY 06/30/22 08/16/22 Unknown History tablet (Fiber Therapy (methylcellulose)) Exam Exam Date and Time: October 25, 2022 1241 Airway Mallampati Class: II TM Dist: >3cm Neck ROM: Full Heart: rrr Lungs: cta Assessment and Plan Assessment Anesthesia Assessment: Anesthesia Plan Discussed and Chart Reviewed Final Anesthetic Review Family History of Problems with Anesthesia: No History of Problems with Anesthesia: No NPO: Yes ASA Class: II Final Preanesthetic Review: No Changes in Pt Med Stat, Meds/Allgs Chart Reviewed, Consent Obtained/Reviewed and Anes Risks/Benef Reviewed Patient Risk: Intermediate Procedure Risk: Intermediate Anesthetic Plan Anesthetic Plan: MAC: Disposition: Standard PACU
[2022-10-25 13:40] VITALS: BP 94/59; PULSE 53; RESP 18; TEMP 36.2; O2SAT 97; BMI 24.6
--- NOTE | 2022-10-25 14:32 | MHC.SHP ---
Pre-Procedural Eval Section A Date of Service: 10/25/22 Section B Chief Complaint: pyloric stenosis Relevant Family History (Specify if Yes): No Relevant Social History: None Present Medications: see Short Stay Collaborative assessment Medical History: Significant History (Acid reflux Anxiety Arthritis YUE I (cervical intraepithelial neoplasia I) Depression GERD (gastroesophageal reflux disease) Hiatal hernia IBS (irritable bowel syndrome) Pyloric stenosis Rheumatoid arthritis) History of Previous Operations: Relevant previous surgery/procedure and date(s) (History of bilateral tubal ligation History of biopsy (03/2017) History of dilatation and curettage History of endometrial ablation History of esophagogastroduodenoscopy (EGD) Hx of colonoscopy) Allergies: Allergies Allergy/AdvReac Type Severity Reaction Status Date / Time NSAIDS (Non-Steroidal Allergy Mild Abdominal Verified 10/21/22 09:01 Anti-Inflamma Pain Review of Systems Sugical H&P ROS: Negative: Constitution, Cardiovascular, Respiratory, Neurological, Psychiatric, Hem-Onc, Allergic/Immunologic, Gastrointestinal, Genitourinary, Musculoskeletal, Integumentary, Endocrine and Eyes/Ears/Nose/Throat Exam Surgical H&P Exam: Normal: HEENT, Normal: Heart, Normal: Lungs, Normal: Extremities, Normal: Abdomen, Normal: Skin and Normal: Neurological Plan Diagnosis/Plan: Unchanged I have reviewed the history and physical and performed a pertinent physical examination on my patient. No changes have occurred unless specified. Time Spent With Patient Time: Total time managing care of this patient today ____ minutes.
--- NOTE | 2022-10-25 15:02 | W.PM.OPN ---
Operative Note Operative Note Date of Service: 10/25/22 Narrative: Procedure Description: EGD Indication: pyloric stenosis Anesthesia: MAC FLEXIBLE TRANSORAL UPPER GASTROINTESTINAL ENDOSCOPY UPPER ENDOSCOPY Consent: Indications for the procedure and potential complications of bleeding, perforation, reaction to medications and missed diagnosis were discussed with the patient and informed consent was obtained. Instrument: Olympus GIF H 190 J mid size upper endoscope Monitoring: Vital signs and clinical assessment, continuous EKG monitoring, Pulse oximetry, Carbon Dioxide monitoring and blood pressure monitoring were done throughout the procedure. Procedure: The patient was placed in the left lateral decubitis position and pre-procedure medications were administered and a bite block was placed. The endoscope was inserted into the mouth and advanced under direct vision to the third part of duodenum. A careful inspection was made as the upper endoscope was withdrawn including a retroflexed examination of the proximal stomach; Findings and interventions are described below. Findings: Larynx:normal Esophagus: GE junction at 40? cm, diaphragm hiatus at 40 cm, normal mucosa Stomach: Normal mucosa. Grade 2 flap valve on retroflexed examination of the cardia. Pre pyloric stricture noted, was able to gently get the scope past with some heme noted, then dilated with pyloric balloon from 15 mm to 17 mm using a wire Duodenum: Normal bulb and descending duodenum, Intervention: pre pyloric balloon dilation Impression: Pre Pyloric outlet obstruction and stricture PLAN: 1/ Recommend rept EGD in 4-6 weeks, patient refused kenalog again due to concerns about diabetes
[2022-10-25 15:10] VITALS: BP 104/69; PULSE 63; RESP 14; TEMP 36.5; O2SAT 94
[2022-10-25 15:25] VITALS: BP 100/65; PULSE 63; RESP 20; O2SAT 98
[2022-10-25 15:40] VITALS: BP 99/66; PULSE 74; RESP 20; TEMP 36.5; O2SAT 99
== END 2022-10-25 16:26 | disposition home or self-care (01) ==
PROVIDERS: PCP Internal Medicine; Visit Provider Internal Medicine Gastroenterology
PROC: 0DJ08ZZ Inspection of Upper Intestinal Tract, Via Natural or Artificial Opening Endoscopic (ICD-10-PCS; CPT 43235; principal; 2022-10-25 14:40)
DX: K31.1 Adult hypertrophic pyloric stenosis (principal); K21.9 Gastro-esophageal reflux disease without esophagitis; K44.9 Diaphragmatic hernia without obstruction or gangrene; K58.1 Irritable bowel syndrome with constipation; M06.9 Rheumatoid arthritis, unspecified; F32.A Depression, unspecified; F41.1 Generalized anxiety disorder; Z79.899 Other long term (current) drug therapy; Z88.8 Allergy status to other drugs, medicaments and biological substances; Z87.891 Personal history of nicotine dependence; F12.90 Cannabis use, unspecified, uncomplicated
CPT/HCPCS: 43245; C1726

== ENCOUNTER → 2022-10-25 13:12 | Outpatient (BNV) | payer OTHER, SELFPAY | PROVIDERS: PCP Internal Medicine; Visit Provider Internal Medicine Gastroenterology | DX: K31.1 Adult hypertrophic pyloric stenosis (principal) | CPT/HCPCS: 43249 ==

== ENCOUNTER 2022-12-23 15:30 | Outpatient (REF) | payer OTHER, SELFPAY ==
[2022-12-23 15:47] LABS: MANUAL DIFF FLAG NO
[2022-12-23 15:55] LABS: Basophils Percent Auto 0.7 % (0-2); Eosinophils Absolute Auto 0.1 X10*3/uL (0.0-0.4); Eosinophils Percent Auto 2.2 % (0-4); Hematocrit 36.9 % (37.0-47.0); Hemoglobin 11.7 g/dl (12.0-16.0); Imm Gran Abs Auto 0.01 X10*3/uL (0.00-0.03); Imm Gran Pct Auto 0.2 % (0.0-0.4); Mean Corpuscular HGB Conc 31.7 g/dl (31.0-35.0); Mean Corpuscular Hemoglobin 29.2 pg (27.0-33.0); Monocytes Absolute Auto 0.4 X10*3/uL (0.1-1.2); Monocytes Percent Auto 10.8 % (2-11); Neutrophils Absolute Auto 2.5 x10*3/uL (2.0-8.3); Neutrophils Percent Auto 61.1 % (45-73); Platelet Count 223 X10*3/uL (160-400); Red Blood Count 4.01 X10*6/uL (4.20-5.50); Red Cell Distribution Width 13.7 % (11.0-16.0); White Blood Count 4.1 X10*3/uL (4.8-10.8)
[2022-12-23 16:27] LABS: Alanine Aminotransferase 23 U/L (0-31); Albumin Level 3.8 g/dL (3.5-5.0); Alkaline Phosphatase 80 U/L (39-117); Anion Gap 10 (12-20); Aspartate Amino Transferase 28 U/L (5-31); Bilirubin Total 0.2 mg/dL (0.0-1.0); Blood Urea Nitrogen 9 mg/dL (9-16); Calcium 9.3 mg/dL (8.4-10.2); Carbon Dioxide 28 mmol/L (22-29); Chloride 103 mmol/L (96-108); Estimated Glomerular Filt Rate > 60; Glucose Random 88 mg/dL (60-115); Potassium 4.1 mmol/L (3.3-5.1); Sodium 137 mmol/L (135-145); Total Protein 8.3 g/dL (6.5-8.0)
== END 2022-12-23 15:31 | disposition home or self-care (01) ==
LOC: HO.LAB 15:30
PROVIDERS: PCP Internal Medicine; Visit Provider Internal Medicine
DX: R21 Rash and other nonspecific skin eruption (principal); K21.9 Gastro-esophageal reflux disease without esophagitis; M06.9 Rheumatoid arthritis, unspecified
CPT/HCPCS: 36415; 80053; 85025

== ENCOUNTER → 2023-01-03 11:00 | Outpatient (BNV) | payer OTHER, SELFPAY | PROVIDERS: PCP Internal Medicine; Visit Provider Radiology Diagnostic Radiology | DX: R92.1 Mammographic calcification found on diagnostic imaging of breast (principal) | CPT/HCPCS: 77061; 77065 ==

== ENCOUNTER 2023-01-03 11:11 | Outpatient (REF) | payer OTHER, SELFPAY ==
--- NOTE | ~2023-01-03 | MM_ITS ---
EXAMINATION: MM DIAGNOSTIC DIGITAL BREAST TOMOSYNTHESIS, RIGHT CLINICAL INFORMATION: 6 month follow-up for right breast calcifications approximate 9:00 axis. COMPARISON: Mammography: 06/29/2022, 06/22/2022. Dating back to 2019. TECHNIQUE: Digital breast tomosynthesis is performed in both the craniocaudal and mediolateral oblique views along with computer-aided detection (CAD). Synthesized 2D images are generated from the tomosynthesis. In addition, spot magnification 2-D right CC and ML views were obtained. FINDINGS: The breasts are heterogeneously dense, which may obscure small masses (ACR BI-RADS breast composition Category c). There are approximately 4 rounded punctate calcifications grouped in the far outer 9:00 axis of the right breast, unchanged from the prior exam. There is no pleomorphism, linear or branching forms. These have a benign appearance and remain probably benign. There has been no aggressive change. There are no suspicious masses, additional suspicious grouped calcifications, or areas of architectural distortion in the right breast. The parenchymal pattern is stable from prior exams. MM/MM tomosynthesis diagnostic RT IMPRESSION: There are no significant changes from prior study. No findings suspicious for malignancy right breast. Stable probably benign punctate calcifications in the far lateral 9:00 right breast. Recommend additional 6 month interval follow-up mammography to include standard magnification views. ASSESSMENT: BI-RADS BI-RADS 3 - Probably benign finding(s) - 6 month follow-up suggested RECOMMENDATION: 6 Month F/U Results were provided to the patient at time of visit by the technologist. This patient's information was entered into a reminder system with a target due date for their next mammogram.
== END 2023-01-03 11:12 | disposition home or self-care (01) ==
LOC: HO.MAMMO 11:11
PROVIDERS: PCP Internal Medicine; Visit Provider Internal Medicine
DX: R92.1 Mammographic calcification found on diagnostic imaging of breast (principal)
CPT/HCPCS: 77061; 77065

== ENCOUNTER 2023-01-04 11:21 | Day surgery (SDC) | payer OTHER, SELFPAY ==
[2023-01-02 10:38] VITALS: BMI 23.3
--- NOTE | 2023-01-03 09:32 | HO.ANESPROP2 ---
Documented by User: Olivia Acharya NP 01/03/23 09:35 HPI - Anesthesia Eval Consult details Narrative: 52yo F for Upper Endoscopy with Balloon Dilitation Weekly methotrexate for RA s/p EGD 10/2022 with [facility] Active Problems Active Problems: All Active Problems (Updated 09/11/22 @ 00:13 by Nilton Clifton) Complex ovarian cyst (Acute) Abnormal uterine bleeding (AUB) (Acute) Cervical low risk human papillomavirus (HPV) DNA test positive (Acute) Fibrocystic changes of right breast (Acute) Breast pain, right (Acute) Well woman exam (Acute) Pyloric stenosis (Acute) GERD (gastroesophageal reflux disease) (Acute) IBS (irritable bowel syndrome) (Acute) Hiatal hernia (Acute) Past Medical History Medical History Pyloric stenosis GERD (gastroesophageal reflux disease) Hiatal hernia Rheumatoid arthritis YUE I (cervical intraepithelial neoplasia I) Arthritis IBS (irritable bowel syndrome) Anxiety Depression Acid reflux Family History Family History Mother Breast cancer Family history of problems with anesthesia: No Surgical History Surgical History (Updated 01/02/23 @ 10:34 by Ernestine Lombardi RN) History of dilatation and curettage Hx of colonoscopy History of esophagogastroduodenoscopy (EGD) History of biopsy (03/2017) History of endometrial ablation History of bilateral tubal ligation History of Problems with Anesthesia: No Social History Social History Household Members Other:: sister Are you a primary ambulatory care coordinator to a significant other at home: No Do you presently have visiting nurse or other home services: No Alcohol intake: never Patient Tobacco Use Status: Current everyday Tobacco user Tobacco use type: Cigarette Cigarette Packs Per Day: 0.25 Cigarettes Per Day: 5.0 Substance Use Type: Marijuana Advance Directives: No Advance Directives Information Provided: Yes Sexual orientation: Straight/Heterosexual Gender identity: Female Meds Allergies Allergy/AdvReac Type Severity Reaction Status Date / Time NSAIDS (Non-Steroidal Allergy Mild Abdominal Verified 10/21/22 09:01 Anti-Inflamma Pain Home Medications Medication Instructions Recorded Confirmed Last Taken Type citalopram 40 mg tablet 40 mg PO QAM 02/10/20 01/02/23 07/13/21 History folic acid 1 mg tablet 1 mg PO DAILY 02/10/20 01/02/23 10/25/22 History gabapentin 100 mg capsule 100 mg PO TID PRN pain 02/10/20 01/02/23 Unknown History gabapentin 400 mg capsule 400 mg PO BEDTIME 02/10/20 01/02/23 Unknown History methotrexate sodium 2.5 mg tablet 12.5 mg PO QWEEK 02/10/20 01/02/23 Unknown History methylcellulose (laxative) 500 mg 500 mg PO DAILY 06/30/22 01/02/23 Unknown History tablet (Fiber Therapy (methylcellulose)) Exam Exam Date and Time: January 03, 2023 0932 Height,Weight and Vital Signs: Height 5 ft 5 in Weight 63.503 kg Pertinent Lab Results Pertinent Lab Results: Laboratory Tests 12/23/22 15:46 WBC 4.1 L Hgb 11.7 L Hct 36.9 L Plt Count 223 Sodium 137 Potassium 4.1 Chloride 103 Carbon Dioxide 28 BUN 9 Creatinine 0.75 Narrative Narrative: EKG 09/2022 Vent. Rate : 078 BPM Atrial Rate : 078 BPM P-R Int : 146 ms QRS Dur : 084 ms QT Int : 368 ms P-R-T Axes : 070 044 020 degrees QTc Int : 419 ms Normal sinus rhythm Normal ECG When compared with ECG of 01-AUG-2022 16:04, No significant change was found Assessment and Plan Assessment Anesthesia Assessment: Chart Reviewed Final Anesthetic Review Family History of Problems with Anesthesia: No History of Problems with Anesthesia: No Documented by User: Rosaura Oliveros MD 01/04/23 12:23 [facility] Past Medical History Medical History Pyloric stenosis GERD (gastroesophageal reflux disease) Hiatal hernia Rheumatoid arthritis YUE I (cervical intraepithelial neoplasia I) Arthritis IBS (irritable bowel syndrome) Anxiety Depression Acid reflux Family History Family History Mother Breast cancer Surgical History Surgical History (Updated 01/02/23 @ 10:34 by Ernestine Lombardi RN) History of dilatation and curettage Hx of colonoscopy History of esophagogastroduodenoscopy (EGD) History of biopsy (03/2017) History of endometrial ablation History of bilateral tubal ligation Social History Social History Household Members Other:: sister Are you a primary ambulatory care coordinator to a significant other at home: No Do you presently have visiting nurse or other home services: No Alcohol intake: never Patient Tobacco Use Status: Current everyday Tobacco user Tobacco use type: Cigarette Cigarette Packs Per Day: 0.25 Cigarettes Per Day: 5.0 Substance Use Type: Marijuana Advance Directives: No Advance Directives Information Provided: Yes Sexual orientation: Straight/Heterosexual Gender identity: Female Meds Allergies Allergy/AdvReac Type Severity Reaction Status Date / Time NSAIDS (Non-Steroidal Allergy Mild Abdominal Verified 10/21/22 09:01 Anti-Inflamma Pain Home Medications Medication Instructions Recorded Confirmed Last Taken Type citalopram 40 mg tablet 40 mg PO QAM 02/10/20 01/02/23 07/13/21 History folic acid 1 mg tablet 1 mg PO DAILY 02/10/20 01/02/23 10/25/22 History gabapentin 100 mg capsule 100 mg PO TID PRN pain 02/10/20 01/02/23 Unknown History gabapentin 400 mg capsule 400 mg PO BEDTIME 02/10/20 01/02/23 Unknown History methotrexate sodium 2.5 mg tablet 12.5 mg PO QWEEK 02/10/20 01/02/23 Unknown History methylcellulose (laxative) 500 mg 500 mg PO DAILY 06/30/22 01/02/23 Unknown History tablet (Fiber Therapy (methylcellulose)) Exam Airway Mallampati Class: II TM Dist: >3cm Neck ROM: Full Heart: rrr Lungs: cta Assessment and Plan Assessment Anesthesia Assessment: Anesthesia Plan Discussed Final Anesthetic Review NPO: Yes ASA Class: II Final Preanesthetic Review: No Changes in Pt Med Stat, Meds/Allgs Chart Reviewed and Consent Obtained/Reviewed Patient Risk: Intermediate Procedure Risk: Intermediate Anesthetic Plan Anesthetic Plan: MAC: Disposition: Standard PACU
[2023-01-04 12:14] VITALS: BP 102/63; PULSE 52; RESP 16; TEMP 36.8; O2SAT 98
[2023-01-04] MEDS: Lactated Ringers 1,000 ML 100 ML IVCONT (12:38)
--- NOTE | 2023-01-04 12:53 | MHC.SHP ---
Pre-Procedural Eval Section A Date of Service: 01/04/23 Section B Chief Complaint: Adult hypertrophic pyloric stenosis Relevant Family History (Specify if Yes): No Relevant Social History: None Present Medications: see Short Stay Collaborative assessment Medical History: Significant History ( Acid reflux Anxiety Arthritis YUE I (cervical intraepithelial neoplasia I) Depression GERD (gastroesophageal reflux disease) Hiatal hernia IBS (irritable bowel syndrome) Pyloric stenosis Rheumatoid arthritis) History of Previous Operations: Relevant previous surgery/procedure and date(s) (History of bilateral tubal ligation History of biopsy (03/2017) History of dilatation and curettage History of endometrial ablation History of esophagogastroduodenoscopy (EGD) Hx of colonoscopy) Allergies: Allergies Allergy/AdvReac Type Severity Reaction Status Date / Time NSAIDS (Non-Steroidal Allergy Mild Abdominal Verified 10/21/22 09:01 Anti-Inflamma Pain Review of Systems Sugical H&P ROS: Negative: Constitution, Cardiovascular, Respiratory, Neurological, Psychiatric, Hem-Onc, Allergic/Immunologic, Gastrointestinal, Genitourinary, Musculoskeletal, Integumentary, Endocrine and Eyes/Ears/Nose/Throat Exam Surgical H&P Exam: Normal: HEENT, Normal: Heart, Normal: Lungs, Normal: Extremities, Normal: Abdomen, Normal: Skin and Normal: Neurological Plan Diagnosis/Plan: Unchanged I have reviewed the history and physical and performed a pertinent physical examination on my patient. No changes have occurred unless specified. Time Spent With Patient Time: Total time managing care of this patient today ____ minutes.
--- NOTE | 2023-01-04 13:10 | W.PM.OPN ---
Operative Note Operative Note Date of Service: 01/04/23 Narrative: Procedure Description: EGD Indication: [] Anesthesia: MAC FLEXIBLE TRANSORAL UPPER GASTROINTESTINAL ENDOSCOPY UPPER ENDOSCOPY Consent: Indications for the procedure and potential complications of bleeding, perforation, reaction to medications and missed diagnosis were discussed with the patient and informed consent was obtained. Instrument: Olympus GIF H 190 J mid size upper endoscope Monitoring: Vital signs and clinical assessment, continuous EKG monitoring, Pulse oximetry, Carbon Dioxide monitoring and blood pressure monitoring were done throughout the procedure. Procedure: The patient was placed in the left lateral decubitis position and pre-procedure medications were administered and a bite block was placed. The endoscope was inserted into the mouth and advanced under direct vision to the third part of duodenum. A careful inspection was made as the upper endoscope was withdrawn including a retroflexed examination of the proximal stomach; Findings and interventions are described below. Findings: Larynx:normal Esophagus: GE junction at 40? cm, diaphragm hiatus at 40 cm, normal mucosa Stomach: Normal mucosa. Grade 2 flap valve on retroflexed examination of the cardia with small fundic gland polyp noted. Pre pyloric stricture noted, was able to gently get the scope past with some heme noted, then dilated with pyloric balloon from 15 mm to 18 mm using a wire with heme noted. Kenalog was then injected around the stricture area, Duodenum: Normal bulb and descending duodenum, Intervention: pre pyloric balloon dilation with kenalog injection Impression: Pre Pyloric outlet obstruction and stricture PLAN: 1/ Recommend rept EGD as needed--if ongoing sx can also consider surgical referral for pyloromyotomy
[2023-01-04 13:47] VITALS: BP 104/61; PULSE 52; RESP 16; TEMP 36.5; O2SAT 100
[2023-01-04 14:02] VITALS: BP 102/65; PULSE 62; RESP 16; TEMP 36.8; O2SAT 97
== END 2023-01-04 14:02 | disposition home or self-care (01) ==
PROVIDERS: PCP Internal Medicine; Visit Provider Internal Medicine Gastroenterology
PROC: (CPT 43245; principal; 2023-01-04 12:40)
DX: K31.1 Adult hypertrophic pyloric stenosis (principal); K31.7 Polyp of stomach and duodenum; K21.9 Gastro-esophageal reflux disease without esophagitis; K44.9 Diaphragmatic hernia without obstruction or gangrene; K58.1 Irritable bowel syndrome with constipation; M06.9 Rheumatoid arthritis, unspecified; Z79.899 Other long term (current) drug therapy; F17.210 Nicotine dependence, cigarettes, uncomplicated; F12.90 Cannabis use, unspecified, uncomplicated; Z88.8 Allergy status to other drugs, medicaments and biological substances
CPT/HCPCS: 43245; 43236; C1726; J3010; J3301

== ENCOUNTER → 2023-01-04 11:21 | Outpatient (BNV) | payer OTHER, SELFPAY | PROVIDERS: PCP Internal Medicine; Visit Provider Internal Medicine Gastroenterology | DX: K31.1 Adult hypertrophic pyloric stenosis (principal) | CPT/HCPCS: 43249 ==

== ENCOUNTER 2023-01-16 11:10 | Outpatient (AMB) | payer OTHER, SELFPAY ==
[2023-01-16 11:53] VITALS: BP 123/68; PULSE 70; BMI 23.5
--- NOTE | 2023-01-16 11:53 | MHC.OFFVIS ---
Intake Vital Signs 01/16/23 11:53 Height 5 ft 5 in Weight 141 lb BMI 23.5 BP 123/68 Blood Pressure Location Lt brachial Position Sitting Pulse 70 Intake Visit Reasons: s/p egd Intake Note: Patient presents to in office visit today in follow up of EGD. CC: Patient underwent EGD with balloon dilation on 01/04/[address] Yañez. She reports occasional epigastric pain, denies having any other GI symptoms. Allergies NSAIDS (Non-Steroidal Anti-Inflamma Allergy (Mild, Verified 01/16/23 12:06) Abdominal Pain HPI s/p egd HPI Details LAST VISIT Pyloric stenosis Will schedule patient to repeat EGD GERD (gastroesophageal reflux disease) Continue current treatment with omeprazole. Discussed with patient avoiding dietary triggers and late night snacking. Staying upright for minimum 3 hours after meals discussed with patient. IBS (irritable bowel syndrome) Patient will continue taking MiraLax. I will add senna. Patient was encouraged to increase fluid intake and activity to promote better bowel motility. Discussed with patient low FODMAP diet. List of food recommended as well as list of food to avoid given to patient. I will see patient after the procedure, sooner on as needed basis. Patient is agreeable to this plan and verbalizes understanding of instructions. She was given the opportunity to ask questions and questions answered. ? Thank you for allowing me to participate in her care Plan Medications New sennosides (Natural Senna Laxative) 8.6 mg PO BEDTIME 90 tabs 3RF constipation K59.00 - Constipation, unspecified polyethylene glycol 3350 (Miralax) 17 grams PO DAILY 100 ea 3RF UPPER ENDOSCOPY Findings: Larynx:normal Esophagus: GE junction at 40? cm, diaphragm hiatus at 40 cm, normal mucosa Stomach: Normal mucosa. Grade 2 flap valve on retroflexed examination of the cardia with small fundic gland polyp noted. Pre pyloric stricture noted, was able to gently get the scope past with some heme noted, then dilated with pyloric balloon from 15 mm to 18 mm using a wire with heme noted. Kenalog was then injected around the stricture area, Duodenum: Normal bulb and descending duodenum, Intervention: pre pyloric balloon dilation with kenalog injection Impression: Pre Pyloric outlet obstruction and stricture PLAN: 1/ Recommend rept EGD as needed--if ongoing sx can also consider surgical referral for pyloromyotomy TODAY'S VISIT Patient is here today for follow-up and to discuss balloon dilation to pre-pyloric region with Kenalog injection. Patient reports that she has been feeling better, however she does have constant epigastric discomfort. Patient states that is mild. Not related to food. Patient is taking PPI in the morning. Not on any H2 blockers. Patient reports that she definitely feels better than before. Denies dysphagia or odynophagia. Denies dyspepsia. Discussed with patient options for further dilation versus referral to surgery for pyloromyotomy. Patient denies any nausea or vomiting. Denies any melena, hematochezia, unintentional weight loss or ribbon like stools. Patient states that she is moving her bowels well without any issues. [facility] Medical History Pyloric stenosis GERD (gastroesophageal reflux disease) Hiatal hernia Rheumatoid arthritis YUE I (cervical intraepithelial neoplasia I) Arthritis IBS (irritable bowel syndrome) Anxiety Depression Acid reflux Surgical History (Updated 01/02/23 @ 10:34 by Ernestine Lombardi RN) History of dilatation and curettage Hx of colonoscopy History of esophagogastroduodenoscopy (EGD) History of biopsy (03/2017) History of endometrial ablation History of bilateral tubal ligation Family History Mother Breast cancer Social History Household Members Other:: sister Are you a primary healthcare corporate account director to a significant other at home: No Do you presently have visiting nurse or other home services: No Alcohol intake: never Patient Tobacco Use Status: Current everyday Tobacco user Tobacco use type: Cigarette Cigarette Packs Per Day: 0.25 Cigarettes Per Day: 5.0 Substance Use Type: Marijuana Sexual orientation: Straight/Heterosexual Gender identity: Female Female Reproductive History Menstrual Age of Menarche: 14 Physical Exam Vital Signs: Last Vital Signs Pulse 70 01/16/23 11:53 BP 123/68 01/16/23 11:53 BMI result Body Mass Index 23.5 Const General: healthy appearing, no acute distress and well developed Nutritional Appearance: well nourished Orientation/consciousness: patient oriented x3 HEENT Head: Yes normal to inspection, Yes normocephalic and Yes atraumatic Face and sinus: Yes normal facial exam Mouth: Normal oral and palatal mucosa present Throat: Yes posterior oropharynx normal, Yes tonsils normal and Yes uvula midline Eyes General: appearance normal, both eyes and all related structures Neck Neck: Yes normal visual inspection, Yes full ROM and Yes trachea midline Thyroid: Thyroid normal Resp Effort & Inspection: normal respiratory effort, able to speak in complete sentences, no tracheal deviation and symmetric chest movement Auscultation: clear to auscultation bilaterally Cardio Rate: regular rate Heart sounds: S1 normal heart sound present and S2 normal heart sound present GI Inspection: Yes normal to inspection and No distended Palpation (GI): Soft to palpation, not firm, nontender and No hepatosplenomegaly present Auscultation: normal bowel sounds General: Yes no CVA tenderness Back/Spine/Pelvis Back: no CVA tenderness Skin General skin exam: elasticity normal, turgor normal and dry skin Neuro General: patient oriented x3 Psych Appearance: grossly normal Mental Status: mental status grossly normal Assessment & Plan Assessment & Plan (1) Pyloric stenosis: Code(s): K31.1 - Adult hypertrophic pyloric stenosis (2) GERD (gastroesophageal reflux disease): Code(s): K21.9 - Gastro-esophageal reflux disease without esophagitis Qualifiers: Esophagitis presence: esophagitis presence not specified Qualified Code(s): K21.9 - Gastro-esophageal reflux disease without esophagitis (3) IBS (irritable bowel syndrome): Code(s): K58.9 - Irritable bowel syndrome without diarrhea Qualifiers: Irritable bowel syndrome type: with constipation Qualified Code(s): K58.1 - Irritable bowel syndrome with constipation Plan Patient will start taking famotidine at bedtime see if that epigastric pain will get better. She will think about going for possible pyloromyotomy. Patient is worried to take time off as she will be starting and will job soon. Discussed with patient avoiding dietary triggers in late night snacking. Staying upright for minimal 3 hours after meals discussed with patient. Patient will continue take senna and MiraLax daily to help her move her bowels. I will see her in 5 weeks, sooner on as needed basis. Patient is agreeable to this plan and verbalizes understanding of instructions. She was given the opportunity to ask questions and all questions answered. Thank you for allowing me to participate in her care Medications: New famotidine (Pepcid) 20 mg PO BEDTIME 30 tabs 3RF K21.9 - Gastro-esophageal reflux disease without esophagitis Coding Level of Care Code Est Pt Level 4 (20879) Diagnoses Pyloric stenosis K31.1 Gastroesophageal reflux disease, unspecified whether esophagitis present K21.9 Esophagitis presence: esophagitis presence not specified Irritable bowel syndrome with constipation K58.1 Irritable bowel syndrome type: with constipation Time Spent (min) 35 Comment 20 minutes spent with patient and additional 15 minutes spent reviewing her records
== END 2023-01-16 12:24 | disposition home or self-care (01) ==
PROVIDERS: PCP Internal Medicine; Visit Provider Nurse Practitioner Family
DX: K31.1 Adult hypertrophic pyloric stenosis (principal); K21.9 Gastro-esophageal reflux disease without esophagitis; K58.1 Irritable bowel syndrome with constipation
CPT/HCPCS: 99214

== ENCOUNTER → 2023-01-16 11:10 | Outpatient (BNVA) | payer OTHER, SELFPAY | PROVIDERS: PCP Internal Medicine; Visit Provider Nurse Practitioner Family | DX: K31.1 Adult hypertrophic pyloric stenosis (principal); K21.9 Gastro-esophageal reflux disease without esophagitis; K58.1 Irritable bowel syndrome with constipation | CPT/HCPCS: 99212 ==

== ENCOUNTER 2023-03-17 09:08 | Emergency (ER) | payer OTHER, SELFPAY ==
[2023-03-17 09:13] VITALS: BP 117/91; PULSE 79; RESP 19; TEMP 36.6; O2SAT 97; BMI 24.8
--- NOTE | 2023-03-17 09:34 | ED.GENADULT ---
HPI - General Adult General Chief complaint: Back Pain/Injury Stated complaint: back pain Time Seen by Provider: 03/17/23 09:34 Source: patient Mode of arrival: ambulatory Limitations: no limitations History of Present Illness HPI narrative: Patient is a 52 year old assigned female at with a history of RA, GERD, anxiety, and depression presenting to the emergency department today with right sided upper back and shoulder pain. Patient states that she woke up with right sided shoulder and mid back pain. Patient states that she has not had this pain before and it is worse with movement. Patient denies any dizziness, lightheadedness, abdominal pain, nausea, vomiting, fever, chills, blurry vision, double vision, loss of vision, chest pain, difficulty breathing, shortness of breath, night sweats, pain with urination, increased urinary frequency, increased urinary urgency, blood in her urine or stool, syncope or a near syncopal episode, recent trauma or falls, bowel incontinence, bladder incontinence, bowel retention, bladder retention, or any other complaints at this time. Onset (ago): hour(s) Location: back Severity: mild Severity scale (1-10): 4 Relieving factors: none Exacerbating factors: movement Associated symptoms: denies other symptoms Treatments prior to arrival: none Related Data Home Medications Medication Instructions Recorded Confirmed citalopram 40 mg tablet 40 mg PO QAM 02/10/20 01/02/23 folic acid 1 mg tablet 1 mg PO DAILY 02/10/20 01/02/23 methotrexate sodium 2.5 mg tablet 12.5 mg PO QWEEK 02/10/20 01/02/23 methylcellulose (laxative) 500 mg 500 mg PO DAILY 06/30/22 01/02/23 tablet (Fiber Therapy (methylcellulose)) fluticasone propionate 50 intranasal 01/16/23 mcg/actuation nasal spray,suspension gabapentin 600 mg tablet 600 mg PO BEDTIME 01/16/23 loratadine 10 mg tablet 10 mg PO DAILY 01/16/23 Previous Rx's Medication Instructions Recorded hydrocortisone 2.5 % topical 1 appl topical BID #28.35 grams 07/27/21 ointment ondansetron 4 mg disintegrating 4 mg PO Q8H PRN nausea and 08/01/22 tablet vomiting #20 tabs omeprazole 40 mg capsule,delayed 40 mg PO DAILY #90 caps 09/01/22 release polyethylene glycol 3350 17 gram 17 g PO DAILY #100 ea 10/21/22 oral powder packet (Miralax) sennosides 8.6 mg tablet (Natural 8.6 mg PO BEDTIME constipation #90 10/21/22 Senna Laxative) tabs famotidine 20 mg tablet 20 mg PO BEDTIME #90 tabs 03/09/23 cyclobenzaprine 5 mg tablet 5 mg PO TID PRN muscle spasm 7 03/17/23 days #21 tabs Allergies Allergy/AdvReac Type Severity Reaction Status Date / Time NSAIDS (Non-Steroidal Allergy Mild Abdominal Verified 03/17/23 09:12 Anti-Inflamma Pain Review of Systems Constitutional: Constitutional: Reports no additional constitutional complaints, Denies chills, Denies fever(s) and Denies night sweats Eyes: Eyes: Reports no additional eye complaints, Denies blurry vision, Denies change in vision, Denies diplopia, Denies eye discharge, Denies loss of vision and Denies eye pain ENT: Denies dizziness Cardiovascular: Cardiovascular: Reports no additional cardiovascular complaints, Denies chest pain, Denies lightheadedness, Denies Loss of Consciousness and Denies dyspnea Respiratory: Respiratory: Reports no additional respiratory complaints and Denies dyspnea Gastrointestinal: Gastrointestinal: Reports no additional gastrointestinal complaints, Denies abdominal pain, Denies melena, Denies hematochezia, Denies change in bowel habits and Denies change in stool character Genitourinary: Genitourinary: Denies hematuria, Denies urinary frequency, Denies dysuria, Denies urinary incontinence, Denies urinary hesitancy and Denies urinary urgency Musculoskeletal: Musculoskeletal: Reports no additional musculoskeletal complaints, Reports back pain, Denies numbness and Denies tingling Neurologic: Denies dizziness, Denies loss of vision, Denies numbness and Denies tingling Psychiatric: Psychiatric: Reports no additional psychiatric complaints Endocrine: Endocrine: Reports no additional endocrine complaints Hematologic/Lymphatic: Hematologic/Lymphatic: Reports no additional hematologic/lymphatic complaints Allergic/Immunologic: Allergic/Immunologic: Reports no additional allergic/immunologic complaints PMFSH Past Medical History Attestation statement: The following information was validated with the patient. Source: old records reviewed and nursing notes reviewed Onset Date is defined in the Problem List Problems that require an onset date and time if occurred within 24 hrs of arrival to the ED Aortic Dissection and Rupture; Neurologic impairment; Cardiopulmonary Arrest; Endotracheal Intubation; Insertion or Replacement of Mechanical Circulatory Assist Device Medical History Breast pain, right Well woman exam Pyloric stenosis GERD (gastroesophageal reflux disease) Hiatal hernia Rheumatoid arthritis YUE I (cervical intraepithelial neoplasia I) Arthritis IBS (irritable bowel syndrome) Anxiety Depression Acid reflux Surgical History History of dilatation and curettage Hx of colonoscopy History of esophagogastroduodenoscopy (EGD) History of biopsy (03/2017) History of endometrial ablation History of bilateral tubal ligation Family History Family History Mother Breast cancer Social History Social History Household Members Other:: sister Are you a primary healthcare economics consultant to a significant other at home: No Do you presently have visiting nurse or other home services: No Alcohol intake: never Patient Tobacco Use Status: Current everyday Tobacco user Tobacco use type: Cigarette Cigarette Packs Per Day: 0.25 Cigarettes Per Day: 5.0 Substance Use Type: Marijuana Advance Directives: No Advance Directives Information Provided: No Sexual orientation: Straight/Heterosexual Gender identity: Female Physical Exam ED Vital Signs: Vital Signs - 24 hr 03/17/23 09:13 Temperature 98 F Pulse Rate 79 Respiratory Rate 19 Blood Pressure 117/91 H Pulse Oximetry 97 Oxygen Delivery Method Room Air BMI result Body Mass Index 24.8 Const General: cooperative, no acute distress, alert and awake Nutritional Appearance: well nourished Orientation/consciousness: patient oriented x3 Limitations: no limitations HENMT Head: Yes normal to inspection and Yes atraumatic Ears: hearing grossly normal bilaterally and external ears normal General nose exam: Normal external nose present, no nasal discharge noted and no epistaxis Face and sinus: Yes normal facial exam, No abrasion and No laceration Mouth: Normal oral and palatal mucosa present, no drooling and no muffled voice Eyes General: appearance normal, both eyes and all related structures Periorbital: periorbital findings normal Eyelids: Yes eyelids normal Conjunctivae: conjunctivae normal Pupils: Equal, round and reactive pupils present EOM: EOMs intact bilaterally Neck Neck: Yes normal visual inspection, Yes full ROM and Yes no lymphadenopathy Chest Chest palpation & inspection: normal inspection of the chest Resp Effort & Inspection: normal respiratory effort and able to speak in complete sentences GI Inspection: Yes normal to inspection General: Yes no CVA tenderness Back/Spine/Pelvis Other: tense feeling trapezius muscle on the right side Back: no CVA tenderness Cervical Spine: normal cervical lordosis and cervical ROM normal Neuro General: patient oriented x3 and moves all extremities Cranial nerves: Yes Equal, round and reactive pupils present Cognition (Neuro): normal cognition Motor exam (neuro): 5/5 motor strength present throughout Sensory Exam: Normal double simultaneous stimulation for sensation Coordination: [id number] test normal Extrem General: Yes normal to inspection, Yes full ROM and Yes capillary refill normal Psych Appearance: grossly normal Mental Status: mental status grossly normal Affect: normal affect Attitude: cooperative Thought process: Normal thought process present Thought content: Normal thought content present Insight: Good insight present (Psych) Medications Administered Discontinued Medications Generic Name Dose Route Start Last Admin Trade Name Georgeq PRN Reason Stop Dose Admin Cyclobenzaprine HCl 5 mg 03/17/23 09:36 03/17/23 10:35 Cyclobenzaprine Hcl 5 Mg Tablet PO 03/17/23 09:37 5 mg ONCE ONE Administration Medical Decision Making Medical Decision Making [facility] Narrative: Patient is a 52 year old assigned female at with a history of RA, GERD, anxiety, and depression presenting to the emergency department today with upper back pain. Patient's physical exam was as noted in the physical exam portion of this note. Patient's blood work was unremarkable. Patient's EKG was unremarkable. I explained my physical exam findings as well as all test results to the patient. I answered all questions asked by the patient. I stressed the importance of the patient taking her medication as prescribed. I stressed the importance of the patient following up with her primary care provider. I stressed the importance of the patient returning to the emergency department immediately if her symptoms were to worsen or if she were to develop any dizziness, shortness of breath, difficulty breathing, chest pain, blurry vision, loss of vision, nausea, vomiting, abdominal pain, fever, chills, back pain, or any other complaints. Patient verbalized agreement and understanding with this treatment plan and discharge. Differential Diagnosis Differential Diagnoses: The differential diagnosis associated with the presentation includes Muscle spasm Back pain NSTEMI STEMI Admission/Observation Consideration of admission/observation: Escalation of care including admission/observation considered Patient would have been admitted to the hospital had her work up had any findings where hospital admission was appropriate and her clinical presentation warranted hospital admission. Lab Data [facility] Lab Attestation statement: I reviewed the patient's lab results. My interpretation of these results are in the [facility] Rationale portion of this note. 03/17/23 10:41 03/17/23 10:41 Labs: Lab Results 03/17/23 Range/Units 10:41 WBC 3.9 L (4.8-10.8) X10*3/uL RBC 3.89 L (4.20-5.50) X10*6/uL Hgb 11.2 L (12.0-16.0) g/dl Hct 35.2 L (37.0-47.0) % MCV 90.5 (80.0-98.0) fL MCH 28.8 (27.0-33.0) pg MCHC 31.8 (31.0-35.0) g/dl RDW 14.0 (11.0-16.0) % Plt Count 179 (160-400) X10*3/uL MPV 10.7 (9.4-12.3) fL Immature Gran % (Auto) 0.3 (0.0-0.4) % Neut % (Auto) 69.9 (45-73) % Lymph % (Auto) 18.7 L (20-40) % Walsh % (Auto) 9.0 (2-11) % Eos % (Auto) 1.8 (0-4) % Baso % (Auto) 0.3 (0-2) % Lymph # (Auto) 0.7 L (1.2-4.9) X10*3/uL Walsh # (Auto) 0.4 (0.1-1.2) X10*3/uL Eos # (Auto) 0.1 (0.0-0.4) X10*3/uL Baso # (Auto) 0.0 (0.0-0.2) X10*3/uL Abs Immat Gran (auto) 0.01 (0.00-0.03) X10*3/uL Absolute Neuts (auto) 2.7 (2.0-8.3) x10*3/uL Absolute Nucleated RBC 0.000 (0.0-0.012) X10*3/uL Nucleated RBC % (auto) 0.0 (0.0-0.2) /100WBC Sodium 138 (135-145) mmol/L Potassium 4.2 (3.3-5.1) mmol/L Chloride 105 (96-108) mmol/L Carbon Dioxide 28 (22-29) mmol/L Anion Gap 9 L (12-20) BUN 15 (9-16) mg/dL Creatinine 0.70 (0.5-1.4) mg/dL Estim Creat Clear Calc 86.3 Estimated GFR > 60 Random Glucose 100 (60-115) mg/dL Calcium 8.9 (8.4-10.2) mg/dL Total Bilirubin 0.3 (0.0-1.0) mg/dL AST 20 (5-31) U/L ALT 14 (0-31) U/L Alkaline Phosphatase 65 (39-117) U/L Troponin I High Sens < 2.7 (<3.5-17.0) ng/L Total Protein 7.9 (6.5-8.0) g/dL Albumin 3.6 (3.5-5.0) g/dL Independent Interpretation I performed an independent interpretation of an: EKG Interpretation: Vent. Rate: 068 BPM Atrial Rate: 068 BPM P-R Int: 166 ms QRS Dur: 084 ms QT Int: 402 ms P-R-T Axes: 073 058 023 degrees QTc Int: 427 ms Normal sinus rhythm Normal ECG When compared with ECG of 10-SEP-2022 17:07, No significant change was found DD/ 1050 Prescription Management I considered prescription management with: Pain Medication (patient prescribed pain medication.) Discharge Plan Discharge Clinical Impression: Muscle spasm, Back pain Patient Disposition: Home, Self-Care Instructions: Muscle Spasm (ED), Back Pain (ED) Additional Instructions: Follow up with your primary care provider. Return to the emergency department immediately if your symptoms worsen or if you develop any dizziness, shortness of breath, difficulty breathing, chest pain, blurry vision, loss of vision, nausea, vomiting, abdominal pain, fever, chills, back pain, or any other complaints. Prescriptions: New cyclobenzaprine 5 mg tablet 5 mg PO TID PRN (Reason: muscle spasm) 7 Days Qty: 21 0RF No Action omeprazole 40 mg capsule,delayed release(DR/EC) 40 mg PO DAILY Qty: 90 3RF famotidine 20 mg tablet 20 mg PO BEDTIME Qty: 90 1RF Fiber Therapy (m-cellulose) 500 mg tablet 500 mg PO DAILY ondansetron 4 mg tablet,disintegrating 4 mg PO Q8H PRN (Reason: nausea and vomiting) Qty: 20 0RF folic acid 1 mg tablet 1 mg PO DAILY methotrexate sodium 2.5 mg tablet 12.5 mg PO QWEEK citalopram 40 mg tablet 40 mg PO QAM hydrocortisone 2.5 % ointment 1 appl topical BID Qty: 28.35 1RF sennosides [Natural Senna Laxative] 8.6 mg tablet 8.6 mg PO BEDTIME Qty: 90 3RF polyethylene glycol 3350 [Miralax] 17 gram powder in packet 17 g PO DAILY Qty: 100 3RF gabapentin 600 mg tablet 600 mg PO BEDTIME loratadine 10 mg tablet 10 mg PO DAILY fluticasone propionate 50 mcg/actuation spray,suspension intranasal Referrals: Maximino Jung MD [Primary Care Provider] - Stand Alone Forms: Work/School Release Print Language: Yoruba
--- NOTE | 2023-03-17 09:36 | ECG_ITS ---
Test Reason : CHEST PAIN Blood Pressure : / mmHG Vent. Rate : 068 BPM Atrial Rate : 068 BPM P-R Int : 166 ms QRS Dur : 084 ms QT Int : 402 ms P-R-T Axes : 073 058 023 degrees QTc Int : 427 ms Normal sinus rhythm Normal ECG When compared with ECG of 10-SEP-2022 17:07, No significant change was found Referred By: Shala Momin Electronically Signed By:ANJELICA PAEZ MD
[2023-03-17] MEDS: Cyclobenzaprine HCl 5 MG TABLET PO (10:35)
--- NOTE | 2023-03-17 10:38 | PC.NURSE ---
medicated per the MAR for pain
[2023-03-17 10:50] LABS: MANUAL DIFF FLAG NO
[2023-03-17 10:55] LABS: Basophils Percent Auto 0.3 % (0-2); Eosinophils Absolute Auto 0.1 X10*3/uL (0.0-0.4); Eosinophils Percent Auto 1.8 % (0-4); Hematocrit 35.2 % (37.0-47.0); Hemoglobin 11.2 g/dl (12.0-16.0); Imm Gran Abs Auto 0.01 X10*3/uL (0.00-0.03); Imm Gran Pct Auto 0.3 % (0.0-0.4); Lymphocytes Absolute Auto 0.7 X10*3/uL (1.2-4.9); Lymphocytes Percent Auto 18.7 % (20-40); Mean Corpuscular HGB Conc 31.8 g/dl (31.0-35.0); Mean Corpuscular Hemoglobin 28.8 pg (27.0-33.0); Mean Corpuscular Volume 90.5 fL (80.0-98.0); Mean Platelet Volume 10.7 fL (9.4-12.3); Monocytes Absolute Auto 0.4 X10*3/uL (0.1-1.2); Neutrophils Absolute Auto 2.7 x10*3/uL (2.0-8.3); Neutrophils Percent Auto 69.9 % (45-73); Platelet Count 179 X10*3/uL (160-400); Red Blood Count 3.89 X10*6/uL (4.20-5.50); White Blood Count 3.9 X10*3/uL (4.8-10.8)
[2023-03-17 11:07] LABS: Alanine Aminotransferase 14 U/L (0-31); Albumin Level 3.6 g/dL (3.5-5.0); Alkaline Phosphatase 65 U/L (39-117); Anion Gap 9 (12-20); Aspartate Amino Transferase 20 U/L (5-31); Bilirubin Total 0.3 mg/dL (0.0-1.0); Blood Urea Nitrogen 15 mg/dL (9-16); Calcium 8.9 mg/dL (8.4-10.2); Carbon Dioxide 28 mmol/L (22-29); Chloride 105 mmol/L (96-108); Creatinine Clr Calc Pharmacy 86.3; Estimated Glomerular Filt Rate > 60; Glucose Random 100 mg/dL (60-115); Potassium 4.2 mmol/L (3.3-5.1); Sodium 138 mmol/L (135-145); Total Protein 7.9 g/dL (6.5-8.0)
[2023-03-17 11:15] LABS: Troponin-I High Sensitivity < 2.7 ng/L (<3.5-17.0)
== END 2023-03-17 11:40 | disposition home or self-care (01) ==
PROVIDERS: Physician Assistant Medical; Emergency Provider Emergency Medicine; PCP Internal Medicine
DX: M54.50 Low back pain, unspecified (principal); R07.89 Other chest pain; M62.830 Muscle spasm of back; M25.511 Pain in right shoulder; Z79.899 Other long term (current) drug therapy; F17.210 Nicotine dependence, cigarettes, uncomplicated; Z71.6 Tobacco abuse counseling
CPT/HCPCS: 36415; 80053; 84484; 85025; 93005; 99283

== ENCOUNTER → 2023-03-17 09:36 | Outpatient (BNV) | payer OTHER, SELFPAY | PROVIDERS: Emergency Provider Emergency Medicine; PCP Internal Medicine; Visit Provider Internal Medicine Cardiovascular Disease | DX: R07.9 Chest pain, unspecified (principal) | CPT/HCPCS: 93010 ==

== ENCOUNTER 2023-03-30 18:55 | Emergency (ER) | payer OTHER, SELFPAY ==
[2023-03-30 19:32] VITALS: BP 112/73; PULSE 78; RESP 18; TEMP 36.5; O2SAT 99; BMI 25.7
[2023-03-30 20:18] LABS: COVID-19 Test Negative (Negative); IDNOW Serial# 08D9AD1C
[2023-03-30 20:26] LABS: IDNOW Serial# 08D9AD1C; Strep A Nucleic Acid Negative (Negative)
[2023-03-30 20:34] LABS: IDNOW Serial# 08D9AD1C; Influenza A Negative (Negative); Influenza B2 Negative (Negative)
--- NOTE | 2023-03-30 20:55 | ED_ITS ---
HPI - URI/Sore Throat General Chief Complaint: Upper Respiratory Symptoms Stated Complaint: ? sinus infection,swollen right cheek Time Seen by Provider: 03/30/23 20:42 Source: patient Mode of arrival: ambulatory Limitations: no limitations History of Present Illness HPI Narrative: 52 yo female with RA on methotrexate here with c/o R sided facial pain and swelling with recent URI symptoms - concern for sinusitis MD elicited complaint: rhinorrhea, nasal congestion and sinus pain Onset (ago): week(s) (1) Consistency: progressively worsening Severity: moderate Description of mucous: yellow Able to tolerate fluids by mouth: Yes Exacerbating factors: other (laying on swollen area) Relieving factors: nothing Associated symptoms: headache, rhinorrhea, nasal congestion and cough Treatments prior to arrival: none Related Data Home Medications Medication Instructions Recorded Confirmed citalopram 40 mg tablet 40 mg PO QAM 02/10/20 01/02/23 folic acid 1 mg tablet 1 mg PO DAILY 02/10/20 01/02/23 methotrexate sodium 2.5 mg tablet 12.5 mg PO QWEEK 02/10/20 01/02/23 methylcellulose (laxative) 500 mg 500 mg PO DAILY 06/30/22 01/02/23 tablet (Fiber Therapy (methylcellulose)) fluticasone propionate 50 intranasal 01/16/23 mcg/actuation nasal spray,suspension gabapentin 600 mg tablet 600 mg PO BEDTIME 01/16/23 loratadine 10 mg tablet 10 mg PO DAILY 01/16/23 Previous Rx's Medication Instructions Recorded hydrocortisone 2.5 % topical 1 appl topical BID #28.35 grams 07/27/21 ointment ondansetron 4 mg disintegrating 4 mg PO Q8H PRN nausea and 08/01/22 tablet vomiting #20 tabs omeprazole 40 mg capsule,delayed 40 mg PO DAILY #90 caps 09/01/22 release polyethylene glycol 3350 17 gram 17 g PO DAILY #100 ea 10/21/22 oral powder packet (Miralax) sennosides 8.6 mg tablet (Natural 8.6 mg PO BEDTIME constipation #90 10/21/22 Senna Laxative) tabs famotidine 20 mg tablet 20 mg PO BEDTIME #90 tabs 03/09/23 cyclobenzaprine 5 mg tablet 5 mg PO TID PRN muscle spasm 7 03/17/23 days #21 tabs amoxicillin 875 mg-potassium 1 tab PO BID #13 tabs 03/30/23 clavulanate 125 mg tablet ondansetron 4 mg disintegrating 4 mg PO Q8H PRN nausea and 03/30/23 tablet vomiting #20 tabs Allergies Allergy/AdvReac Type Severity Reaction Status Date / Time NSAIDS (Non-Steroidal Allergy Mild Abdominal Verified 03/17/23 09:12 Anti-Inflamma Pain Review of Systems Review of Systems: Constitutional : No Fever, No Chills, No Fatigue ENT/Mouth : No sore throat, No Rhinorrhea, pos sinus pressure, pos sinus congestion Eyes: No Eye Pain, No Swelling, No Redness Cardiovascular : No Chest Pain, No SOB, No Dyspnea on Exertion Respiratory : No Cough, No Sputum Gastrointestinal : No Nausea, No Vomiting, No Diarrhea, No abdominal Pain Genitourinary : No Dysuria, No Urinary Frequency, No Hematuria, Musculoskeletal : No joint pain, No Myalgias, No Joint Swelling Skin : No Skin Lesions, No rash Neuro : No Weakness, No Numbness, No Dizziness, pos Headache Psych : No Anxiety/Panic, No Depression Heme/Lymph: No Bruising, No Bleeding, pos Lymphadenopathy Endocrine : No Polyuria, No Polydipsia All other systems reviewed and are negative [facility] Past Medical History Attestation statement: The following information was validated with the patient. Source: old records reviewed Medical History Breast pain, right Well woman exam Pyloric stenosis GERD (gastroesophageal reflux disease) Hiatal hernia Rheumatoid arthritis YUE I (cervical intraepithelial neoplasia I) Arthritis IBS (irritable bowel syndrome) Anxiety Depression Acid reflux Surgical History History of dilatation and curettage Hx of colonoscopy History of esophagogastroduodenoscopy (EGD) History of biopsy (03/2017) History of endometrial ablation History of bilateral tubal ligation Family History Family History Mother Breast cancer Social History Social History Household Members Other:: sister Are you a primary child care attendant school to a significant other at home: No Do you presently have visiting nurse or other home services: No Alcohol intake: never Patient Tobacco Use Status: Current everyday Tobacco user Tobacco use type: Cigarette Cigarette Packs Per Day: 0.25 Cigarettes Per Day: 5.0 Substance Use Type: Marijuana Advance Directives: No Advance Directives Information Provided: No Sexual orientation: Straight/Heterosexual Gender identity: Female Physical Exam Vital Signs: Vital Signs: Last Vital Signs Temp 97.7 F 03/30/23 19:32 Pulse 78 03/30/23 19:32 Resp 18 03/30/23 19:32 BP 112/73 03/30/23 19:32 Pulse Ox 99 03/30/23 19:32 O2 Del Method Room Air 03/30/23 19:32 BMI result Body Mass Index 25.7 Appearance: Alert. Oriented X3. No acute distress. Eyes: Pupils equal, round and reactive to light. ENT: Pharynx normal. no parotid ttp or swelling, no trismus, R TM and ext ear normal. R pre-auricular lymph node is swollen and tender to palpation no overlying erythema no sublingual or submandibular swelling Neck: Normal inspection. Neck supple. CVS: Normal heart rate and rhythm. Pulses normal. Respiratory: No respiratory distress. Breath sounds normal. Abdomen: Soft and nontender. Skin: Skin warm and dry. Normal skin color. Normal skin turgor. Extremities: No lower extremity edema. No calf ttp Neuro: Oriented X 3. No motor deficit. No sensory deficit. Medical Decision Making Medical Decision Making [facility] Narrative: 52 yo male with PMH of RA on methotrexate here with c/o sinus pressure congestion then noted the R cheek was swollen today and it hurts to chew. She is not diabetic has not had a fever. She denies PMH of this. Differential Diagnosis Differential Diagnoses: The differential diagnosis associated with the presentat ion includes sinusitis, lymphadenitis Admission/Observation Consideration of admission/observation: Escalation of care including admission/observation considered not toxic, no signs of malignant external otitis - start on oral abx one dose of dexamethasone here Lab Data [facility] Lab Attestation statement: I reviewed the patient's lab results. Labs: Lab Results 03/30/23 03/30/23 Range/Units 19:58 20:09 COVID-19 (KIRSTIE) Negative (Negative) COVID-19 Clin Com See Note Influenza Type A (TITO) Negative (Negative) Influenza Type B (TITO) Negative (Negative) Influenza A & B Note See Note S. pyogenes GrpA [facility]ITO Negative (Negative) External Record Review External record reviewed: Inpatient record Prescription Management I considered prescription management with: Antibiotic and Other Discharge Plan Discharge Clinical Impression: Acute lymphadenitis Acute maxillary sinusitis Qualifiers: Recurrence: non-recurrent Qualified Code(s): J01.00 - Acute maxillary sinusitis, unspecified Patient Disposition: Home, Self-Care Instructions: Sinusitis (ED), Adenitis (ED) Additional Instructions: return for worsening swelling, vision changes, severe pain, fevers, inability to eat or drink or any other concerns. use a probiotic while on antibiotic On amoxicillin-clavulanate, softer bowel movements are to be expected. Call your provider if you move your bowels more than 4 times a day, your bowel movements are almost all liquid, or you get a rash.? Prescriptions: New ondansetron 4 mg tablet,disintegrating 4 mg PO Q8H PRN (Reason: nausea and vomiting) Qty: 20 0RF amoxicillin-pot clavulanate 875-125 mg tablet 1 tab PO BID Qty: 13 0RF No Action omeprazole 40 mg capsule,delayed release(DR/EC) 40 mg PO DAILY Qty: 90 3RF famotidine 20 mg tablet 20 mg PO BEDTIME Qty: 90 1RF Fiber Therapy (m-cellulose) 500 mg tablet 500 mg PO DAILY ondansetron 4 mg tablet,disintegrating 4 mg PO Q8H PRN (Reason: nausea and vomiting) Qty: 20 0RF cyclobenzaprine 5 mg tablet 5 mg PO TID PRN (Reason: muscle spasm) 7 Days Qty: 21 0RF folic acid 1 mg tablet 1 mg PO DAILY methotrexate sodium 2.5 mg tablet 12.5 mg PO QWEEK citalopram 40 mg tablet 40 mg PO QAM hydrocortisone 2.5 % ointment 1 appl topical BID Qty: 28.35 1RF sennosides [Natural Senna Laxative] 8.6 mg tablet 8.6 mg PO BEDTIME Qty: 90 3RF polyethylene glycol 3350 [Miralax] 17 gram powder in packet 17 g PO DAILY Qty: 100 3RF gabapentin 600 mg tablet 600 mg PO BEDTIME loratadine 10 mg tablet 10 mg PO DAILY fluticasone propionate 50 mcg/actuation spray,suspension intranasal Stand Alone Forms: Work/School Release
[2023-03-30 21:18] VITALS: BP 118/80; PULSE 71; RESP 18; TEMP 36.9; O2SAT 98
[2023-03-30] MEDS: Amoxicillin/Potassium Clav 875 MG TABLET PO (21:44)
[2023-03-30] MEDS: dexAMETHasone sod phosphate 4 MG/ML VIAL 8 MG PO (21:44)
== END 2023-03-30 21:45 | disposition home or self-care (01) ==
PROVIDERS: Emergency Provider Emergency Medicine; PCP Internal Medicine
DX: J01.00 Acute maxillary sinusitis, unspecified (principal); I88.9 Nonspecific lymphadenitis, unspecified; J34.89 Other specified disorders of nose and nasal sinuses; R51.9 Headache, unspecified; R09.81 Nasal congestion; Z11.52 Encounter for screening for COVID-19
CPT/HCPCS: 87502; 87635; 87651; 99283; 99284; J1100

== ENCOUNTER 2023-05-17 08:46 | Outpatient (AMB) | payer OTHER, SELFPAY ==
--- NOTE | 2023-05-17 08:58 | MHC.OFFVIS ---
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 No complaints. Last Pap/HPV was negative in , the patient had negative Pap/HPV positive in 02/23 followed by negative colpo/biopsy/ECC Last Mammogram was BI-RADS 3 in 12/26, the recommendation was to repeat in 6 months Last colonoscopy was in 07/25, the recommendation was to repeat in 10 years ON LICENSE OF [facility] Medical History (Updated 05/17/23 @ 09:08 by Ariel Moreira MD) Well woman exam Breast pain, right Pyloric stenosis GERD (gastroesophageal reflux disease) Hiatal hernia Rheumatoid arthritis YUE I (cervical intraepithelial neoplasia I) Arthritis IBS (irritable bowel syndrome) Anxiety Depression Acid reflux Surgical History History of dilatation and curettage Hx of colonoscopy History of esophagogastroduodenoscopy (EGD) History of biopsy (03/2017) History of endometrial ablation History of bilateral tubal ligation Family History Mother Breast cancer Paternal Uncle Colon cancer Social History Household Members Other:: sister Are you a primary home care music therapist to a significant other at home: No Do you presently have visiting nurse or other home services: No Alcohol intake: never Patient Tobacco Use Status: Current everyday Tobacco user Tobacco use type: Cigarette Cigarette Packs Per Day: 0.25 Cigarettes Per Day: 5.0 Substance Use Type: Marijuana Sexual orientation: Straight/Heterosexual Gender identity: Female Female Reproductive History Menstrual Age of Menarche: 14 Total pregnancies: 5 Full term: 4 Number of Living Children: 4 Ab induced: 1 Date of last pap smear: 05/10/22 (neg pap and hpv) History of abnormal pap smear: Yes Date of Mammogram: 01/03/23 Review of Systems Const All systems reviewed & are unremarkable except as noted in HPI and below Card Reports as per HPI Resp Reports as per HPI GI Reports as per HPI and Reports no additional complaints Reports as per HPI Physical Exam Vital Signs: Last Vital Signs BP 108/62 05/17/23 09:00 BMI result Body Mass Index 26.0 Const General: cooperative, healthy appearing and comfortable Chest Chest palpation & inspection: normal inspection of the chest and normal palpation of entire chest wall Breast/axilla inspection: normal inspection of the breasts and normal inspection of the axillae Breast/axilla palpation: normal palpation of the breasts, normal palpation of the axillae and no axillary lymphadenopathy Resp Effort & Inspection: normal respiratory effort Auscultation: clear to auscultation bilaterally Percussion: percussion normal Cardio Palpation: normal PMI Rate: regular rate Rhythm: regular rhythm Heart sounds: no murmurs and no rubs Peripheral pulses: Peripheral pulses 2+ throughout GI Inspection: Yes normal to inspection Palpation (GI): Soft to palpation, nontender, no guarding, not rigid and No hepatosplenomegaly present Percussion: Yes normal to percussion Auscultation: normal bowel sounds Rectal Exam - Female: deferred General: Yes bladder normal to palpation External Female Exam: No lesion Speculum Exam - Vagina: normal appearance of the vagina, normal palpation, normal vaginal discharge and not erythematous Speculum Exam - Cervix: normal appearance of the cervix and normal palpation Bimanual exam- vagina & uterus: normal bimanual exam, normal palpation, uterine size normal, bladder normal to palpation, consistency normal and normal palpation Bimanual Exam- Adnexa, other: normal adnexae, no masses and no tenderness Assessment & Plan Assessment & Plan (1) Well woman exam: Comment: History of YUE 1 status post cone LEEP in 2018 followed by HPV positive normal Pap and biopsy showing YUE 1 in 2018 2020 Pap negative/HPV positive, colpo biopsy ECC negative Code(s): Z01.419 - Encounter for gynecological examination (general) (routine) without abnormal findings Plan: Cotesting done. Instructions given to patient to schedule next Mammogram in 06/27. Counseled the patient about the recommended dietary allowance of 1000 mg of Calcium & 600 IU of vitamin D. The patient was instructed to perform monthly self-breast exams and to schedule an annual exam in a year; All questions answered and the patient verbalized understanding. Instructed the patient to schedule annual exam in a year Coding Level of Care Code Est Pt Prev Care 40-64y(30689) Diagnoses Well woman exam Z01.419
[2023-05-17 09:00] VITALS: BP 108/62; BMI 26.0
== END 2023-05-17 10:37 | disposition home or self-care (01) ==
LOC: HO.HWS 08:46
PROVIDERS: PCP Internal Medicine; Visit Provider Obstetrics & Gynecology
DX: Z01.419 Encounter for gynecological examination (general) (routine) without abnormal findings (principal)
CPT/HCPCS: 99396

== ENCOUNTER 2023-05-17 08:46 | Outpatient (REF) | payer OTHER, SELFPAY ==
[2023-05-19 06:33] LABS: HPV mRNA E6/E7 rflx Not Detected (Not Detected)
== END 2023-05-17 08:47 | disposition home or self-care (01) ==
LOC: HO.LNP 08:46
PROVIDERS: PCP Internal Medicine; Visit Provider Obstetrics & Gynecology
DX: Z01.419 Encounter for gynecological examination (general) (routine) without abnormal findings (principal); Z98.51 Tubal ligation status
CPT/HCPCS: 87624; 88142; 99396

== ENCOUNTER 2023-07-28 08:42 | Outpatient (AMB) | payer OTHER, SELFPAY ==
--- NOTE | 2023-07-28 08:57 | MHC.OFFVIS ---
Vital Signs 07/28/23 09:05 Height 5 ft 3 in Weight 147 lb 6 oz BMI 26.1 BP 108/65 Blood Pressure Location Lt brachial Position Sitting Pulse 69 Intake Visit Reasons: Gastroesophageal reflux disease (GERD) Intake Note: Patien follow up for GERD and IBS Patient cc: yesterday she was all date in the bathroom with bad odor stool, between diarrhea and constipation, upper abdominal discomfort, and denies any other GI issues. 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 She will think about going for possible pyloromyotomy. Patient is worried to take time off as she will be starting and will job soon. Discussed with patient avoiding dietary triggers in late night snacking. Staying upright for minimal 3 hours after meals discussed with patient. Patient will continue take senna and MiraLax daily to help her move her bowels. I will see her in 5 weeks, sooner on as needed basis. Patient is agreeable to this plan and verbalizes understanding of instructions. She was given the opportunity to ask questions and all questions answered. ? Thank you for allowing me to participate in her care Medications New famotidine (Pepcid) 20 mg PO BEDTIME 30 tabs 3RF K21.9 TODAY'S VISIT Patient is here today for follow-up. Patient reports that since I last saw the patient she has been doing better, however she is reports that she still will be constipated and lately she will have loose stools and then constipation. Patient states that her symptoms of acid reflux are better now with omeprazole and famotidine. Patient states that she is trying to avoid certain food, however she believes that her symptoms that she had yesterday are probably contributed to eating unhealthy meal the night before. Patient reports that she had abdominal bloating, nausea, belching, loose stools. Patient states that she felt full even though she had diarrhea. Smelly stool and belching. Patient denies any melena or hematochezia. [facility] Medical History (Updated 05/17/23 @ 09:08 by Ariel Moreira MD) Well woman exam Breast pain, right Pyloric stenosis GERD (gastroesophageal reflux disease) Hiatal hernia Rheumatoid arthritis YUE I (cervical intraepithelial neoplasia I) Arthritis IBS (irritable bowel syndrome) Anxiety Depression Acid reflux Surgical History History of dilatation and curettage Hx of colonoscopy History of esophagogastroduodenoscopy (EGD) History of biopsy (03/2017) History of endometrial ablation History of bilateral tubal ligation Family History Mother Breast cancer Paternal Uncle Colon cancer Social History Household Members Other:: sister Are you a primary day care center director to a significant other at home: No Do you presently have visiting nurse or other home services: No Alcohol intake: never Patient Tobacco Use Status: Current everyday Tobacco user Tobacco use type: Cigarette Cigarette Packs Per Day: 0.25 Cigarettes Per Day: 5.0 Substance Use Type: Marijuana Sexual orientation: Straight/Heterosexual Gender identity: Female Female Reproductive History Menstrual Age of Menarche: 14 Review of Systems Const Denies weight gain and Denies weight loss ENT Reports no additional complaints, Denies dysphagia and Denies odynophagia Card Reports no additional complaints Resp Reports no additional complaints GI Denies abdominal pain, Denies belching, Denies melena, Reports bloating, Reports constipation, Denies dysphagia, Denies excessive flatus, Denies dyspepsia, Denies heartburn, Denies diarrhea, Reports loose stools, Denies nausea, Denies odynophagia and Denies vomiting Reports no additional complaints Musc Reports no additional complaints Neuro Reports no additional complaints Psych Reports no additional complaints Endo Reports no additional complaints Physical Exam Vital Signs: Last Vital Signs Pulse 69 07/28/23 09:05 BP 108/65 07/28/23 09:05 BMI result Body Mass Index 26.1 Const General: healthy appearing, no acute distress and well developed Nutritional Appearance: well nourished Orientation/consciousness: patient oriented x3 Resp Effort & Inspection: normal respiratory effort, able to speak in complete sentences, no tracheal deviation and symmetric chest movement Auscultation: clear to auscultation bilaterally Cardio Rate: regular rate GI Inspection: Yes normal to inspection and No distended Palpation (GI): Soft to palpation, not firm, nontender and No hepatosplenomegaly present Auscultation: normal bowel sounds General: Yes no CVA tenderness Back/Spine/Pelvis Back: no CVA tenderness Skin General skin exam: elasticity normal, turgor normal and dry skin Neuro General: patient oriented x3 Psych Appearance: grossly normal Mental Status: mental status grossly normal Assessment & Plan Assessment & Plan (1) Pyloric stenosis: Code(s): K31.1 - Adult hypertrophic pyloric stenosis Category: Medical (2) GERD (gastroesophageal reflux disease): Code(s): K21.9 - Gastro-esophageal reflux disease without esophagitis Category: Medical Qualifiers: Esophagitis presence: esophagitis presence not specified Qualified Code(s): K21.9 - Gastro-esophageal reflux disease without esophagitis (3) IBS (irritable bowel syndrome): Code(s): K58.9 - Irritable bowel syndrome without diarrhea Category: Medical Qualifiers: Irritable bowel syndrome type: with constipation Qualified Code(s): K58.1 - Irritable bowel syndrome with constipation Plan Continue omeprazole and famotidine. Avoid dietary triggers and late night snacking. Staying upright for minimum 3 hours after meals discussed with patient. Patient will increase senna to 2 tablets every evening. Patient will go for upper endoscopy for pyloric dilation. Spoke with Dr. Walls about surgical consult for pyloromyotomy. Patient will hold off until her endoscopy. Patient was encouraged to increase fluid intake and activity to promote better bowel motility. I will see patient in 2 months to see if she is feeling better. Patient will call the office if she will continue with symptoms or develop any additional GI concerning symptoms. Patient is agreeable to this plan and verbalizes understanding of instructions. She was given the opportunity to ask questions and all questions answered. Thank you for allowing me to participate in her care Medications: Changed From sennosides (Natural Senna Laxative) 8.6 mg PO BEDTIME 90 tabs 3RF constipation K59.00 - Constipation, unspecified To sennosides (Natural Senna Laxative) 17.2 mg (2 x 8.6 mg) PO BEDTIME 180 tabs 3RF constipation K59.00 - Constipation, unspecified Refilled polyethylene glycol 3350 (Miralax) 17 grams PO DAILY 100 ea 3RF omeprazole 40 mg PO DAILY 90 caps 3RF K21.9 - Gastro-esophageal reflux disease without esophagitis famotidine 20 mg PO BEDTIME 90 tabs 1RF K21.9 - Gastro-esophageal reflux disease without esophagitis Coding Level of Care Code Est Pt Level 3 (48807) Diagnoses Pyloric stenosis K31.1 Gastroesophageal reflux disease, unspecified whether esophagitis present K21.9 Esophagitis presence: esophagitis presence not specified Irritable bowel syndrome with constipation K58.1 Irritable bowel syndrome type: with constipation Time Spent (min) 30 Comment 20 minutes spent with patient and additional 10 minutes spent reviewing her records
[2023-07-28 09:05] VITALS: BP 108/65; PULSE 69; BMI 26.1
== END 2023-07-28 11:01 | disposition home or self-care (01) ==
PROVIDERS: PCP Internal Medicine; Visit Provider Nurse Practitioner Family
DX: K31.1 Adult hypertrophic pyloric stenosis (principal); K21.9 Gastro-esophageal reflux disease without esophagitis; K58.1 Irritable bowel syndrome with constipation
CPT/HCPCS: 99213

== ENCOUNTER → 2023-07-28 08:42 | Outpatient (BNVA) | payer OTHER, SELFPAY | PROVIDERS: PCP Internal Medicine; Visit Provider Nurse Practitioner Family | DX: K21.9 Gastro-esophageal reflux disease without esophagitis (principal); K58.2 Mixed irritable bowel syndrome; K31.1 Adult hypertrophic pyloric stenosis | CPT/HCPCS: 99212 ==

== ENCOUNTER 2023-08-23 08:59 | Outpatient (REF) | payer OTHER, SELFPAY | END 2023-08-23 09:00 | disposition home or self-care (01) | LOC: HO.SH 08:59 | PROVIDERS: Visit Provider Internal Medicine | DX: Z01.118 Encounter for examination of ears and hearing with other abnormal findings (principal); H90.3 Sensorineural hearing loss, bilateral | CPT/HCPCS: 92557; 92567 ==

== ENCOUNTER 2023-09-29 15:01 | Outpatient (REF) | payer OTHER, SELFPAY ==
--- NOTE | 2023-09-29 15:27 | MHC.AU.MED ---
Medical Clearance for Hearing Instrumentation Date: 09/29/23 Patient Name: Jolene Hameed Date of : 1970 Primary Care Provider: Maximino Jung MD We have seen your patient on 09/29/23 and have determined that they are a candidate for amplification (See accompanying report). Specifically, they would benefit from: Hearing aid use in both ears There is a statute that addresses Medical Evaluation Requirements prior to fitting a patient with a hearing aid. According to [place] statute [facility] CMR:6.03(1), (a) General. Except as provided in 265 CMR 6.03(1)(b), a motor and chassis inspector shall not sell a hearing aid unless the prospective user has presented to the motor and chassis inspector a written statement signed by a licensed physician that states that the patient's hearing loss has been medically evaluated and the patient may be considered a candidate for a hearing aid. The medical evaluation must have taken place within the preceding six months. Please note: Due to the [place] Statute referenced above, we cannot accept a signature other than that of a licensed physician. PRESS OFFBEARER and PA signatures cannot be accepted. I am in agreement with the above recommendation. There is no medical contraindication for hearing instrumentation. Physician Signature Date Physician Name (Printed)
--- NOTE | 2023-10-02 08:24 | MHC.AU.HA1 ---
Hearing Aid Evaluation Date of Visit: 09/29/23 Historical Information: Description of Hearing: Within normal sloping to moderate sensorineural hearing loss, bilaterally Summary: Currently unemployed, insurance has changed to plan that now covers hearing aids. Has tried HAs in past but never wore consistently due to minimal perceived benefit. Hearing loss starting to affect daily interactions now. Difficulty understanding speech and following conversations, especially in adverse listening environments. Initially, Jolene wanted custom device for ease of insertion but did not like the size of the ITC, too big/noticeable in ear. Explained CIC or IIC not covered by insurance. Ultimately agreeable to trialing a rechargeable RITE and interested in bluetooth compatibility. *Jolene is unsure when/if insurance will change again. Advised that if insurance is different on day of fitting, HAs may not be covered. Hearing Aid Prescription: Based on the individual?s shared listening needs, communication environments, dexterity, desire for connectivity, and personal preferences, the following prescription for amplification has been made: Right ear: Make, Model, Color: Phonak Audeo L70-R Color: Sand Beige Battery Size: Rechargeable Superintendent Service/Slim Tube: 1M Type of Earmold/Dome/CShell/SlimTip: Small open dome Left ear: Left ear prescription to be same as Right Hearing Aid above: Make, Model, Color: Phonak Audeo L70-R Color: Sand Beige Battery Size: Rechargeable Superintendent Service/Slim Tube: 1M Type of Earmold/Dome/CShell/SlimTip: Small open dome Accessories/Assistive Technology: Caterer'S Aide Plan of Care: Patient wishes to purchase hearing aids as prescribed Action Taken/Action Needed: Medical Clearance to be requested from PCP/ENT. Hearing Instrument Fitting to be scheduled when materials arrive Primary Diagnosis: H90.3 Bilateral Sensorineural Hearing Loss Signature: Provider: Crystal Herrera, [facility]
== END 2023-09-29 15:02 | disposition home or self-care (01) ==
LOC: HO.HAP 15:01
PROVIDERS: Visit Provider Internal Medicine
DX: Z46.1 Encounter for fitting and adjustment of hearing aid (principal); H90.3 Sensorineural hearing loss, bilateral
CPT/HCPCS: 92591

== ENCOUNTER 2023-12-12 12:42 | Outpatient (REF) | payer OTHER, SELFPAY ==
--- NOTE | 2023-12-12 13:30 | MHC.AU.HA2 ---
Hearing Instrument Fitting- Adult- Binaural Date of Visit: 12/12/23 Hearing Instruments Dispensed: Right Ear: [place], Model, Color, Serial Number: Epifanio Shearer L70-R SN: [id number] Color: Macy Beige Manager Home Improvement Repair Warranty: 12/29/2026 Manager Home Improvement Loss and Damage Warranty: 12/29/2026 [facility] Service Plan: 12/11/2024 Battery Size: Rechargeable Wax Pattern Assembler/Slim Tube: 1M Earmold/Dome/CShell/SlimTip: Small open dome (no retention tail) Type of Wax Guard: CeruStop Left Ear: Make, Model, Color, Serial Number: Epifanio Shearer L70-R SN: [id number] Color: Macy Bekatherine Manager Home Improvement Repair Warranty: 03/31/2026 Manager Home Improvement Loss and Damage Warranty: 03/31/2026 [facility] Service Plan: 12/11/2024 Battery Size: Rechargeable Wax Pattern Assembler/Slim Tube: 1M Earmold/Dome/CShell/SlimTip: Small open dome (no retention tail) Type of Wax Guard: CeruStop Accessories/Assistive Technology: Phonak Panel Edge Sealer Ease SN: [id number] Summary of Fitting: Ran feedback analyzer and real ear measures. Decreased to 80% gain level at Jolene's request. Explained acclimatization period and encouraged daily, consistent use. Discussed care, use, and rechargeability including manually turning on/off, VC use, and changing domes and wax guards. Practiced insertion and removal. No interest in bluetooth at this time. Recommendations: A hearing instrument follow-up was scheduled. Diagnosis Code(s): Primary Diagnosis: H90.3 Bilateral Sensorineural Hearing Loss Signature: Provider: Crystal Herrera, [facility]
== END 2023-12-12 12:43 | disposition home or self-care (01) ==
LOC: HO.HAP 12:42
PROVIDERS: Visit Provider Internal Medicine
DX: Z46.1 Encounter for fitting and adjustment of hearing aid (principal); H90.3 Sensorineural hearing loss, bilateral
CPT/HCPCS: V5011; V5020; V5160; V5261

== ENCOUNTER 2023-12-28 08:34 | Outpatient (REF) | payer OTHER, SELFPAY | END 2023-12-28 08:35 | disposition home or self-care (01) | LOC: HO.HAP 08:34 | PROVIDERS: Visit Provider Internal Medicine | DX: Z13.89 Encounter for screening for other disorder (principal) ==

== ENCOUNTER → 2024-01-01 14:30 | Outpatient (BNV) | payer OTHER, SELFPAY | PROVIDERS: PCP Internal Medicine; Visit Provider Radiology Diagnostic Radiology | DX: R92.1 Mammographic calcification found on diagnostic imaging of breast (principal) | CPT/HCPCS: 77062; 77066 ==

== ENCOUNTER 2024-01-01 14:32 | Outpatient (REF) | payer OTHER, SELFPAY ==
--- NOTE | ~2024-01-01 | MM_ITS ---
EXAMINATION: MM DIAGNOSTIC DIGITAL BREAST TOMOSYNTHESIS, BILATERAL CLINICAL INFORMATION: Patient failed to return for six-month follow-up right breast calcifications approximate 9:00 axis mid to posterior depth. Currently due for bilateral screening/yearly. One-year follow-up for 9:00 axis right breast calcifications. COMPARISON: Mammography: 01/03/2023, 06/29/2022, 06/22/2022 (BI-RADS 0), dating back to 2018. TECHNIQUE: Digital breast tomosynthesis is performed in both the craniocaudal and mediolateral oblique views along with computer-aided detection (CAD). Synthesized 2D images are generated from the tomosynthesis. In addition to standard views, 2-D spot magnification right CC and ML views were also obtained. FINDINGS: The breasts are heterogeneously dense, which may obscure small masses (ACR BI-RADS breast composition Category c). Approximate 4 rounded punctate calcifications grouped in the far outer 9:00 axis right breast, entirely unchanged from the prior exam. These do not meet biopsy threshold. These remain probably benign, one year follow-up recommended. Otherwise, there are no suspicious masses, suspicious grouped calcifications, or areas of architectural distortion in either breast. The parenchymal pattern is stable from prior exams. There is no skin or axillary abnormality. MM/MM tomosynthesis diagnostic BI IMPRESSION: -No findings suspicious for malignancy in either breast. -Calcification 5:00 axis right breast, remain unchanged over one year. These remain probably benign. One-year follow-up screen imaged establish a 2 year stability and benignity. ASSESSMENT: BI-RADS BI-RADS 3 - Probably benign finding(s) - 12 month follow-up suggested RECOMMENDATION: 12 month diagnostic follow up Results were provided to the patient at time of visit by the technologist. This patient's information was entered into a reminder system with a target due date for their next mammogram. Electronically signed by: Lusi Oneill MD 01/01/2024 03:51 PM EDT
== END 2024-01-01 14:33 | disposition home or self-care (01) ==
LOC: HO.MAMMO 14:32
PROVIDERS: PCP Internal Medicine; Visit Provider Internal Medicine
DX: R92.1 Mammographic calcification found on diagnostic imaging of breast (principal)
CPT/HCPCS: 77062; 77066

== ENCOUNTER 2024-03-26 11:09 | Emergency (ER) | payer OTHER, SELFPAY ==
--- NOTE | ~2024-03-26 | XR_ITS ---
EXAMINATION: XR CHEST CLINICAL INFORMATION: cough COMPARISON: 09/10/2022. TECHNIQUE: 2 views of the chest were obtained. FINDINGS: The cardiac, hilar, and mediastinal contours are normal. The lungs are clear bilaterally. There is no pneumothorax or pleural effusion. There is no focal osseous or soft tissue abnormality. There is a right convex scoliosis of the thoracolumbar spine. XR/XR chest 2V IMPRESSION: No active pulmonary disease. Electronically signed by: Luis Oneill MD 03/26/2024 12:15 PM TAD
[2024-03-26 11:16] VITALS: BP 108/67; PULSE 83; RESP 18; TEMP 37; O2SAT 96; BMI 27.5
--- NOTE | 2024-03-26 11:20 | ED_ITS ---
HPI - URI/Sore Throat General Chief Complaint: Upper Respiratory Symptoms Stated Complaint: Chest pain, wheezing Time Seen by Provider: 03/26/24 12:47 Source: patient and family Mode of arrival: ambulatory Limitations: no limitations History of Present Illness ED Provider: Clyde Gaviria PA-C HPI Narrative: 53 yo female presenting with cough, wheezing, chest discomfort with coughing, sore throat, body aches for the last several days. son is ill with similar symptoms. She states she has diffuse body aches, general malaise, decreased p.o. intake and generally not feeling well. She denies any chest pain at rest. No dyspnea on exertion. No fevers. No abdominal pain, nausea, vomiting, diarrhea. MD elicited complaint: cough, nasal congestion and other (Wheezing) Onset (ago): day(s) Consistency: progressively worsening Severity: moderate Description of mucous: clear Able to tolerate fluids by mouth: Yes Exacerbating factors: supine positioning Relieving factors: nothing Context: sick contacts Associated symptoms: myalgias, headache, rhinorrhea, nasal congestion, sore throat, cough and chest pain Treatments prior to arrival: none Related Data Home Medications ?Medication ?Instructions ?Recorded ?Confirmed citalopram 40 mg tablet 40 mg PO QAM 02/10/20 12/12/23 folic acid 1 mg tablet 1 mg PO DAILY 02/10/20 12/12/23 methotrexate sodium 2.5 mg tablet 12.5 mg PO QWEEK 02/10/20 12/12/23 methylcellulose (laxative) 500 mg 500 mg PO DAILY 06/30/22 12/12/23 tablet (Fiber Therapy (methylcellulose)) fluticasone propionate 50 1 spray intranasal DAILY 01/16/23 12/12/23 mcg/actuation nasal spray,suspension gabapentin 600 mg tablet 600 mg PO BEDTIME 01/16/23 12/12/23 loratadine 10 mg tablet 10 mg PO DAILY 01/16/23 12/12/23 Previous Rx's ?Medication ?Instructions ?Recorded hydrocortisone 2.5 % topical 1 appl topical BID #28.35 grams 07/27/21 ointment cyclobenzaprine 5 mg tablet 5 mg PO TID PRN muscle spasm 7 03/17/23 days #21 tabs ondansetron 4 mg disintegrating 4 mg PO Q8H PRN nausea and 01/25/24 tablet vomiting #20 tabs famotidine 20 mg tablet 20 mg PO BEDTIME #90 tabs 07/28/23 omeprazole 40 mg capsule,delayed 40 mg PO DAILY #90 caps 07/28/23 release polyethylene glycol 3350 17 gram 17 g PO DAILY #100 ea 07/28/23 oral powder packet (Miralax) sennosides 8.6 mg tablet (Natural 17.2 mg (2 x 8.6 mg) PO BEDTIME 07/28/23 Senna Laxative) constipation #180 tabs albuterol sulfate 90 mcg/actuation 1 inh inhalation QID PRN shortness 03/26/24 aerosol inhaler of breath or wheezing #6.7 grams amoxicillin 875 mg-potassium 1 tab PO BID #14 tabs 03/26/24 clavulanate 125 mg tablet benzonatate 100 mg capsule 100 mg PO TID PRN cough #14 caps 03/26/24 Allergies Allergy/AdvReac Type Severity Reaction Status Date / Time NSAIDS (Non-Steroidal Allergy Mild Abdominal Verified 03/26/24 11:19 Anti-Inflamma Pain Review of Systems Review of Systems: Yes all other systems are reviewed and are negative [facility] Past Medical History Medical History (Updated 03/26/24 @ 12:48 by PRIMITIVO Jimenez) Well woman exam Breast pain, right Pyloric stenosis GERD (gastroesophageal reflux disease) Hiatal hernia Rheumatoid arthritis YUE I (cervical intraepithelial neoplasia I) Arthritis IBS (irritable bowel syndrome) Anxiety Depression Acid reflux Surgical History History of dilatation and curettage Hx of colonoscopy History of esophagogastroduodenoscopy (EGD) History of biopsy (03/2017) History of endometrial ablation History of bilateral tubal ligation Family History Family History Mother Breast cancer Paternal Uncle Colon cancer Social History Social History Household Members Other:: sister Are you a primary manager managed care to a significant other at home: No Do you presently have visiting nurse or other home services: No Alcohol intake: never Patient Tobacco Use Status: Current everyday Tobacco user Tobacco use type: Cigarette Cigarette Packs Per Day: 0.25 Cigarettes Per Day: 5.0 Substance Use Type: Marijuana Advance Directives: No Advance Directives Information Provided: No Sexual orientation: Straight/Heterosexual Gender identity: Female Physical Exam Vital Signs: Vital Signs: Last Vital Signs Temp 98.6 F 03/26/24 12:56 Pulse 83 03/26/24 12:56 Resp 18 03/26/24 12:56 BP 108/67 03/26/24 12:56 Pulse Ox 96 03/26/24 12:56 O2 Del Method Room Air 03/26/24 12:56 BMI result Body Mass Index 27.5 Appearance: Alert. Oriented X3. Appears ill Head: normocephalic, atraumatic. Eyes: Pupils equal, round and reactive to light. ENT: Pharynx with moderate posterior pharyngeal erythema and tonsillar swelling without any exudate. Uvula midline. Normal voice. Neck: Normal inspection. Neck supple. CVS: Normal heart rate and rhythm. Pulses normal. Respiratory: No respiratory distress. Breath sounds with coarse breath sounds throughout, no overt wheezing, rhonchi or rales. Abdomen: Soft and nontender. +BS x4 Skin: Skin warm and dry. Normal skin color. Normal skin turgor. No rashes. Extremities: No lower extremity edema. No joint swelling. Neuro/psych: Oriented X 3. Grossly normal, nonfocal, steady gait Medical Decision Making Medical Decision Making [facility] Narrative: 53-year-old female presents to the ER for evaluation of several days of cough, wheezing, chest congestion, sore throat, malaise and body aches. Vital signs are stable. She has some coarse breath sounds on exam but is in no respiratory distress and is saturating well on room air. Chest x-ray today shows no evidence of focal pneumonia, normal exam. She did test positive for both influenza a and strep throat. Will treat with oral antibiotics. She is out of a treatment window for Tamiflu. Patient counseled on supportive care of flu along with importance of compliance of antibiotics for strep throat. Stable for discharge home with outpatient follow-up as needed. Differential Diagnosis Differential Diagnoses: The differential diagnosis associated with the presenta tion includes strep, covid, flu, rsv, other viral syndrome, bronchitis, pneumonia, no evidence of peritonsillar abcsess or retropharyngeal abscess Lab Data [facility] Lab Attestation statement: I reviewed the patient's lab results. Labs: Lab Results 03/26/24 Range/Units 11:29 Influenza Type A (PCR) POSITIVE A (Negative) Influenza Type B (PCR) NEGATIVE (Negative) RSV RNA Qual (PCR) NEGATIVE (Negative) SARS-CoV-2 RNA (RT-PCR) NEGATIVE (Negative) S. pyogenes GrpA TITO Positive A (Negative) Independent Interpretation I performed an independent interpretation of an: Plain X-Ray Interpretation: No focal infiltrate or effusion Radiology Impression Discussion of test interpretation with radiology: I have reviewed the radiologist's reading. Independent Historian Clinical information obtained from an independent historian. 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 Your chest x-ray and oxygen levels were normal. Take the prescribed antibiotics for strep as directed, complete the entire course and do not miss any doses Do not go out in public while you are not feeling well Take over the counter cold/flu medications as needed for your symptoms. Take Tylenol and/or Motrin as needed for fevers and body aches. Follow up with your doctor we needed If you develop new or worsening symptoms call 911 or come back to the ER for further evaluation. Prescriptions: New amoxicillin-pot clavulanate 875-125 mg tablet 1 tab PO BID Qty: 14 0RF albuterol sulfate 90 mcg/actuation HFA aerosol inhaler 1 inh inhalation QID PRN (Reason: shortness of breath or wheezing) Qty: 6.7 0RF benzonatate 100 mg capsule 100 mg PO TID PRN (Reason: cough) Qty: 14 0RF No Action Fiber Therapy (m-cellulose) 500 mg tablet 500 mg PO DAILY cyclobenzaprine 5 mg tablet 5 mg PO TID PRN (Reason: muscle spasm) 7 Days Qty: 21 0RF ondansetron 4 mg tablet,disintegrating 4 mg PO Q8H PRN (Reason: nausea and vomiting) Qty: 20 0RF folic acid 1 mg tablet 1 mg PO DAILY methotrexate sodium 2.5 mg tablet 12.5 mg PO QWEEK citalopram 40 mg tablet 40 mg PO QAM hydrocortisone 2.5 % ointment 1 appl topical BID Qty: 28.35 1RF gabapentin 600 mg tablet 600 mg PO BEDTIME loratadine 10 mg tablet 10 mg PO DAILY fluticasone propionate 50 mcg/actuation spray,suspension 1 spray intranasal DAILY sennosides [Natural Senna Laxative] 8.6 mg tablet 17.2 mg PO BEDTIME Qty: 180 3RF polyethylene glycol 3350 [Miralax] 17 gram powder in packet 17 g PO DAILY Qty: 100 3RF omeprazole 40 mg capsule,delayed release(DR/EC) 40 mg PO DAILY Qty: 90 3RF famotidine 20 mg tablet 20 mg PO BEDTIME Qty: 90 1RF Referrals: Maximino Jung MD [Primary Care Provider] - Stand Alone Forms: Work/School Release Interventions: ED Discharge Assessment Last Done: 03/26/24 12:56 Discharge Date/Time: 03/26/24 12:56 Print Language: Yoruba
[2024-03-26 11:39] LABS: IDNOW Serial# 58CA691E; Strep A Nucleic Acid Positive (Negative)
[2024-03-26 12:12] LABS: Influenza A PCR POSITIVE (Negative); Influenza B PCR NEGATIVE (Negative); Resp Syncy Virus RNA Qual PCR NEGATIVE (Negative); SARS COV2 PCR INHOUSE NEGATIVE (Negative)
[2024-03-26 12:56] VITALS: BP 108/67; PULSE 83; RESP 18; TEMP 37; O2SAT 96
--- OUTSIDE RECORDS SUMMARY | 2024-03-26 13:20 | XMS_ITS | Clinical Summary ---
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 Name Role Phone Maximino Jung MD Primary Care Provider [phone] Social History Tobacco Use Types Packs/Day Years Used Date Smoking Tobacco: Never Assessed Sex and Gender Information Value Date Recorded Sex Assigned at Not on file Gender Identity Not on file Sexual Orientation Not on file Plan of Treatment Health Maintenance Due Date Last Done Comments Breast Cancer Screening 1972 COVID-19 Vaccine (#1) 1977 DTaP,Tdap,and Td Vaccines (1 - Tdap) 06/04/1991 Hepatitis B Vaccines (1 of 3 - 19+ 3-dose series) 06/04/1991 Cervical Cancer Screening: P ap Smear 1993 Colorectal Cancer Screening: Colonoscopy 02/01/2022 Depression Screening 02/01/2022 HIV Screening 02/01/2022 Hepatitis C Screening 02/01/2022 Social Influencers of Health Screening 02/01/2022 Zoster Vaccines (1 of 2) 2022 Influenza Vaccine (#1) 2023 HIB Vaccines Aged Out No longer eligi ble based on patient's age to complete this topic HPV Vaccines Aged Out No longer eligi ble based on patient's age to complete this topic Hepatitis A Vaccines Aged Out No long er eligible based on patient's age to complete this topic IPV Vaccines Aged Out No longer eligi ble based on patient's age to complete this topic MMR Vaccines Aged Out No longer eligi ble based on patient's age to complete this topic Meningococcal ACWY Vaccine Aged Out N o longer eligible based on patient's age to complete this topic Pneumococcal Vaccine: Pediat rics (0 to 5 Years) and At-Risk Patients (6 to 64 Years) Aged Out No longer eligible b ased on patient's age to complete this topic RSV Immunization Patients Un josé 20 months Aged Out No longer eligible b ased on patient's age to complete this topic Varicella Vaccines Aged Out No longer eligible based on patient's age to complete this topic Care Teams Ship Painter Helper Relationship Specialty Start Date End Date Maximino Jung MD [address] [place] [address] Dr Leroy MA PCP - General Milling Machine Operator Gear 06/16/17
== END 2024-03-26 12:56 | disposition home or self-care (01) ==
PROVIDERS: Physician Assistant; Emergency Provider Emergency Medicine; PCP Internal Medicine
DX: R07.89 Other chest pain (principal); R05.9 Cough, unspecified; J02.9 Acute pharyngitis, unspecified; R51.9 Headache, unspecified; R09.81 Nasal congestion; Z79.899 Other long term (current) drug therapy; Z03.818 Encounter for observation for suspected exposure to other biological agents ruled out
CPT/HCPCS: 0241U; 71046; 87651; 99282; 99283

== ENCOUNTER → 2024-03-26 11:21 | Outpatient (BNV) | payer OTHER, SELFPAY | PROVIDERS: Emergency Provider Emergency Medicine; PCP Internal Medicine; Visit Provider Radiology Diagnostic Radiology | DX: R05.9 Cough, unspecified (principal) | CPT/HCPCS: 71046 ==

== ENCOUNTER 2024-04-04 08:56 | Day surgery (SDC) | payer OTHER, SELFPAY ==
[2024-04-02 14:37] VITALS: BMI 26.0
--- NOTE | 2024-04-03 10:50 | HO.ANESPROP2 ---
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 (Acute) Fibrocystic changes of right breast (Acute) Well woman exam (Acute) Anxiety (Acute) Depression (Acute) Rheumatoid arthritis (Acute) Pyloric stenosis (Acute) GERD (gastroesophageal reflux disease) (Acute) IBS (irritable bowel syndrome) (Acute) Hiatal hernia (Acute) Past Medical History Medical History H/O backache Pyloric stenosis GERD (gastroesophageal reflux disease) Hiatal hernia Rheumatoid arthritis YUE I (cervical intraepithelial neoplasia I) Breast pain, right Well woman exam Arthritis IBS (irritable bowel syndrome) Anxiety Depression Acid reflux Family History Family History Mother Breast cancer Paternal Uncle Colon cancer Family history of problems with anesthesia: No Surgical History Surgical History H/O colonoscopy History of dilatation and curettage Hx of colonoscopy History of esophagogastroduodenoscopy (EGD) History of biopsy (03/2017) History of endometrial ablation History of bilateral tubal ligation History of Problems with Anesthesia: No Social History Social History Household Members Other:: sister Are you a primary care services manager to a significant other at home: No Do you presently have visiting nurse or other home services: No Alcohol intake: never Patient Tobacco Use Status: Current everyday Tobacco user Tobacco use type: Cigarette Cigarette Packs Per Day: 0.25 Cigarettes Per Day: 5.0 Substance Use Type: Marijuana Have you been hit, kicked, punched, or otherwise hurt by someone within the past year? If so, by whom?: No Are you DNR?: No Advance Directives: No Advance Directives Information Provided: Yes Sexual orientation: Straight/Heterosexual Gender identity: Female Meds Allergies Allergy/AdvReac Type Severity Reaction Status Date / Time NSAIDS (Non-Steroidal Allergy Mild Abdominal Verified 03/26/24 11:19 Anti-Inflamma Pain Home Medications ?Medication ?Instructions ?Recorded ?Confirmed ?Last Taken ?Type citalopram 40 mg tablet 40 mg PO QAM 02/10/20 04/02/24 04/03/24 History folic acid 1 mg tablet 1 mg PO DAILY 02/10/20 04/02/24 04/03/24 History methotrexate sodium 2.5 mg tablet 12.5 mg PO QWEEK 02/10/20 04/02/24 03/14/24 History methylcellulose (laxative) 500 mg 500 mg PO DAILY 06/30/22 12/12/23 Unknown History tablet (Fiber Therapy (methylcellulose)) fluticasone propionate 50 1 spray intranasal DAILY 01/16/23 12/12/23 Unknown History mcg/actuation nasal spray,suspension gabapentin 600 mg tablet 600 mg PO BEDTIME 01/16/23 04/02/24 04/03/24 History loratadine 10 mg tablet 10 mg PO DAILY 01/16/23 12/12/23 04/03/24 History Exam Height,Weight and Vital Signs: Height 5 ft 3 in Weight 66.678 kg Assessment and Plan Assessment Anesthesia Assessment: Chart Reviewed Final Anesthetic Review Family History of Problems with Anesthesia: No History of Problems with Anesthesia: No Documented by User: Catina Chin MD 04/04/24 10:32 HPI - Anesthesia Eval Consult details Narrative: 53yo F for Upper Endoscopy with Dilatation Addendum 04/04/24: Patient with flu last week. Residual cough. No fever. No malaise. Bilateral wheezing. Discussed possibility of respiratory complications with patient including larygeal and broncho- spasm and possibly postponing procedure. Patient understands anesthetic risks and wishes to proceed. Lungs CTAB post respiratory treatment. 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 Still with some cough. No fever. No malaise Smoker- Last cigarette yesterday Marijuana- Last used yesterday Past Medical History Medical History H/O backache Pyloric stenosis GERD (gastroesophageal reflux disease) Hiatal hernia Rheumatoid arthritis YUE I (cervical intraepithelial neoplasia I) Breast pain, right Well woman exam Arthritis IBS (irritable bowel syndrome) Anxiety Depression Acid reflux Family History Family History Mother Breast cancer Paternal Uncle Colon cancer Family history of problems with anesthesia: No Surgical History Surgical History H/O colonoscopy History of dilatation and curettage Hx of colonoscopy History of esophagogastroduodenoscopy (EGD) History of biopsy (03/2017) History of endometrial ablation History of bilateral tubal ligation History of Problems with Anesthesia: No Social History Social History Household Members Other:: sister Are you a primary care services manager to a significant other at home: No Do you presently have visiting nurse or other home services: No Alcohol intake: never Patient Tobacco Use Status: Current everyday Tobacco user Tobacco use type: Cigarette Cigarette Packs Per Day: 0.25 Cigarettes Per Day: 5.0 Substance Use Type: Marijuana Have you been hit, kicked, punched, or otherwise hurt by someone within the past year? If so, by whom?: No Are you DNR?: No Advance Directives: No Advance Directives Information Provided: Yes Sexual orientation: Straight/Heterosexual Gender identity: Female Meds Allergies Allergy/AdvReac Type Severity Reaction Status Date / Time NSAIDS (Non-Steroidal Allergy Mild Abdominal Verified 03/26/24 11:19 Anti-Inflamma Pain Home Medications ?Medication ?Instructions ?Recorded ?Confirmed ?Last Taken ?Type citalopram 40 mg tablet 40 mg PO QAM 02/10/20 04/02/24 04/03/24 History folic acid 1 mg tablet 1 mg PO DAILY 02/10/20 04/02/24 04/03/24 History methotrexate sodium 2.5 mg tablet 12.5 mg PO QWEEK 02/10/20 04/02/24 03/14/24 History methylcellulose (laxative) 500 mg 500 mg PO DAILY 06/30/22 12/12/23 Unknown History tablet (Fiber Therapy (methylcellulose)) fluticasone propionate 50 1 spray intranasal DAILY 01/16/23 12/12/23 Unknown History mcg/actuation nasal spray,suspension gabapentin 600 mg tablet 600 mg PO BEDTIME 01/16/23 04/02/24 04/03/24 History loratadine 10 mg tablet 10 mg PO DAILY 01/16/23 12/12/23 04/03/24 History Exam Height,Weight and Vital Signs: Height 5 ft 3 in Weight 66.678 kg Vital Signs Temp Pulse Resp BP Pulse Ox O2 Del Method 04/04/24 09:11 96.9 F 66 18 107/73 97 Room Air Airway Mallampati Class: II TM Dist: >3cm Neck ROM: Full Loose/Missing/Broken Teeth: No Heart: RRR Lungs: Bilateral wheezing. Cleared post respiratory treatment Assessment and Plan Assessment Anesthesia Assessment: Anesthesia Plan Discussed and Chart Reviewed Final Anesthetic Review Family History of Problems with Anesthesia: No History of Problems with Anesthesia: No NPO: Yes ASA Class: III Final Preanesthetic Review: No Changes in Pt Med Stat, Meds/Allgs Chart Reviewed, Consent Obtained/Reviewed and Anes Risks/Benef Reviewed Patient Risk: Intermediate Procedure Risk: Low Assessment/Block/Sedation in SS: Assess/Block/Sedation-SS Anesthetic Plan Anesthetic Plan: TIVA Disposition: Standard PACU
[2024-04-04 09:11] VITALS: BP 107/73; PULSE 66; RESP 18; TEMP 36.1; O2SAT 97; BMI 27.5
[2024-04-04] MEDS: Lactated Ringers 1,000 ML 100 ML IVCONT (09:35)
--- NOTE | 2024-04-04 09:50 | P.HPSUR_ITS ---
Pre-Procedural Eval Section A - 24 Hr Update-Section A only Date of Service: 04/04/24 Section B - Complete if H&P > 30 days Chief Complaint: Epigastric pain Relevant Family History (Specify if Yes): No Relevant Social History: None Present Medications: see Short Stay Collaborative assessment Medical History: Significant History (Pyloric stenosis GERD (gastroesophageal reflux disease) Hiatal hernia Rheumatoid arthritis YUE I (cervical intraepithelial neoplasia I) Breast pain, right Well woman exam Arthritis IBS (irritable bowel syndrome) Anxiety Depression Acid reflux) History of Previous Operations: Relevant previous surgery/procedure and date(s) ( History of dilatation and curettage Hx of colonoscopy History of esophagogastroduodenoscopy (EGD) History of biopsy (03/2017) History of endometrial ablation History of bilateral tubal ligation) Allergies: Allergies Allergy/AdvReac Type Severity Reaction Status Date / Time NSAIDS (Non-Steroidal Allergy Mild Abdominal Verified 03/26/24 11:19 Anti-Inflamma Pain Review of Systems Sugical H&P ROS: Negative: Constitution, Cardiovascular, Respiratory, Neurological, Psychiatric, Hem-Onc, Allergic/Immunologic, Gastrointestinal, Genitourinary, Musculoskeletal, Integumentary, Endocrine and Eyes/Ear s/Nose/Throat Exam Surgical H&P Exam: Normal: HEENT, Normal: Heart, Normal: Lungs, Normal: Extremities, Normal: Abdomen, Normal: Skin and Normal: Neurological Plan Diagnosis/Plan: Unchanged I have reviewed the history and physical and performed a pertinent physical examination on my patient. No changes have occurred unless specified. Time Spent With Patient Time: Total time managing care of this patient today ____ minutes.
[2024-04-04] MEDS: Albuterol Sulfate (0.083%) 2.5 MG/3 ML VIAL.NEB INHALE (10:15)
--- NOTE | 2024-04-04 10:45 | W.PM.OPN ---
Operative Note Operative Note Date of Service: 04/04/24 Narrative: Procedure Description: EGD Indication: pyloric stricture Anesthesia: MAC FLEXIBLE TRANSORAL UPPER GASTROINTESTINAL ENDOSCOPY UPPER ENDOSCOPY Consent: Indications for the procedure and potential complications of bleeding, perforation, reaction to medications and missed diagnosis were discussed with the patient and informed consent was obtained. Instrument: Olympus GIF H 190 J mid size upper endoscope Monitoring: Vital signs and clinical assessment, continuous EKG monitoring, Pulse oximetry, Carbon Dioxide monitoring and blood pressure monitoring were done throughout the procedure. Procedure: The patient was placed in the left lateral decubitis position and pre-procedure medications were administered and a bite block was placed. The endoscope was inserted into the mouth and advanced under direct vision to the third part of duodenum. A careful inspection was made as the upper endoscope was withdrawn including a retroflexed examination of the proximal stomach; Findings and interventions are described below. Findings: Larynx:normal Esophagus: GE junction at 40? cm, diaphragm hiatus at 40 cm, normal mucosa Stomach: Patchy erythema. Grade 2 flap valve on retroflexed examination of the cardia with small fundic gland polyp noted. Pre pyloric stricture noted, was able to gently get the scope past then dilated with pyloric balloon using wire guided technique from 15 mm to 20 mm. Kenalog 40 mg was then injected around the stricture area, x 2 clips were applied due to continuous oozing and then hemospray applied. Duodenum: Normal bulb and descending duodenum, Intervention: pre pyloric balloon dilation using wire guided technique with kenalog injection Impression: Pre Pyloric outlet obstruction and stricture gastritis PLAN: 1/ Recommend rept EGD as needed-- 2/ await bx, check nsaid hx
[2024-04-04 10:48] VITALS: BP 120/67; PULSE 60; RESP 16; TEMP 36.3; O2SAT 99
[2024-04-04 11:03] VITALS: BP 110/68; PULSE 65; RESP 16; TEMP 36.3; O2SAT 98
--- OUTSIDE RECORDS SUMMARY | 2024-04-04 11:49 | XMS_ITS | Patient Health Record ---
Author Organization [facility] Address [address] [place] [address] Care Team Providers Care Aba Tutor Name Role Phone Maximino Jung MD Primary Care Provider Blas Cm Unavailable [phone] ALLERGIES Allergen (clinical drug ingredient) Drug/Non Drug Allergy documented on EMR Reaction Allergy Type Onset Date Status Sudafed Unknown Drug Allergy Active REASON FOR REFERRAL No Information MEDICATIONS Medication SIG (Take, Route, Frequency, Duration) Notes Start Date End Date Status Citalopram Hydrobromide 20 MG 1 tablet Orally Once a day Active Folic Acid 1 MG 1 tablet Orally Once a day Active Multi Vitamin/Minerals - Orally Active Methotrexate 2.5 MG 8 pills Orally once a week Active Gabapentin 300 MG Orally at night Active Pantoprazole Sodium 40 MG TAKE 1 TABLET BY MOUTH TWICE A DAY for 90 Active IMMUNIZATIONS Vaccine Route Administration Date Status Comme nts Influenza Unknown 01/09/2018 Administered SOCIAL HISTORY Tobacco Use: Social History Observation Description Date Details (start date - stop date) Former Smoker NA - NA Sex Assigned At : Social History Observation Description Sex Assigned At Unknown Tobacco Use/Smoking Question Answer Notes Patient is a former smoker How long has it been since you last smoked? 1-5 years PROBLEMS Problem Type ICD Code Onset Dates Problem Status W/U Status Risk SNOMED Code Notes Problem Irritable bowel syndrome without diarrhea (K58.9) Active confirmed 88604737 Problem Early satiety (R68.81) Active confirmed 929810898 Problem Gastroesophageal reflux disease without esophagitis (K21.9) Active confirmed 469680361 Problem Barretts esophagus without dysplasia (K22.70) Active confirmed 903763621 Problem Constipation, unspecified constipation type (K59.00) Active confirmed 12659048 Problem Pyloric stenosis (K31.1) Active confirmed 606666974 Problem Diarrhea, unspecified type (R19.7) Active confirmed 45487927 Problem Pyloric stricture (K31.1) Active confirmed 531081531 Problem Non-intractable vomiting without nausea, unspecified vomiting type (R11.11) Active confirmed 148044949 PLAN OF TREATMENT Future Test Test Name Order Date UPPER GI ENDOSCOPY 10/16/2014 UPPER GI ENDOSCOPY DILATION OF GASTRIC O UTLET OBSTRUCTION 05/05/2016 UPPER GI ENDOSCOPY DILATION OF GASTRIC O UTLET OBSTRUCTION 01/09/2018 UPPER GI ENDOSCOPY DILATION OF GASTRIC O UTLET OBSTRUCTION 01/02/2019 Insurance Providers Payer Name Payer Address Payer Phone Subscriber Number Group Number Insured Name Patient Relationship to Insured Coverage Start Date Coverage End Date [facility] [employer] [address] [place] [address] [id number] MARTHA ALCALA Self - patient is the insured [place] [facility] [address] [place] [address] [id number] CARI MARTHA Self - patient is the insured MEDICAL (GENERAL) HISTORY Medical History History ICD Code IBS--normal duodenal biopsies in 2014 Pyloric stricture--EGD in 2014--this revealed a small hiatal hernia, mild changes of gastroesophageal reflux, and a small area of Mukherjee's mucosa without dysplasia; she also had a significant pyloric stenosis that would not allow passage the gastroscope--this was dilated up to a 15 mm balloon with good effect--there was no ulceration noted and gastric biopsies were negative for H. pylori, and duodenal biopsies were normal--her pantoprazole was increased from 20 mg to 40 mg daily; stricture recurred and she had another EGD with pyloric dilation in 05/2016--her pantoprazole was increased to b.i.d. at that time; EGD with balloon dilation of pyloric stricture 06/2017--10 to 12 to 13.5 to 15 mm balloons---small area of Mukherjee's without dysplasia, gastric biopsies neg for H.pylori Depression/Anxiety Denies CT,DM,CVA,Lung disease,renal dise ase Neg GB U/S in 07/[address] Juan bhakta Crystal--she had a negative colonoscopy and barium enema in 2007 Rheumatoid arthritis---sees Dr. Mitzy osuna Surgical History Surgery Date(Month/Year) Tubal ligation Lower back surgery 11/2017
--- OUTSIDE RECORDS SUMMARY | 2024-04-04 11:49 | XMS_ITS | Clinical Summary ---
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
== END 2024-04-04 12:26 | disposition home or self-care (01) ==
PROVIDERS: PCP Internal Medicine; Visit Provider Internal Medicine Gastroenterology
PROC: (CPT 43245; principal; 2024-04-04 11:30)
DX: K31.1 Adult hypertrophic pyloric stenosis (principal); K29.50 Unspecified chronic gastritis without bleeding; K44.9 Diaphragmatic hernia without obstruction or gangrene; K31.7 Polyp of stomach and duodenum; K21.9 Gastro-esophageal reflux disease without esophagitis; K58.1 Irritable bowel syndrome with constipation; M06.9 Rheumatoid arthritis, unspecified; Z79.899 Other long term (current) drug therapy; Z88.6 Allergy status to analgesic agent; Z98.890 Other specified postprocedural states; F17.210 Nicotine dependence, cigarettes, uncomplicated
CPT/HCPCS: 43245; 88305; 88313; 88342; C1726; J2003; J2704; J3301

== ENCOUNTER → 2024-04-04 08:56 | Outpatient (BNV) | payer OTHER, SELFPAY | PROVIDERS: PCP Internal Medicine; Visit Provider Internal Medicine Gastroenterology | DX: K31.1 Adult hypertrophic pyloric stenosis (principal); K31.7 Polyp of stomach and duodenum; K29.70 Gastritis, unspecified, without bleeding | CPT/HCPCS: 43236; 43239; 43245 ==

== ENCOUNTER → 2024-04-09 14:49 | Outpatient (BNVA) | payer OTHER, SELFPAY | PROVIDERS: PCP Internal Medicine; Visit Provider Nurse Practitioner Family | DX: K21.9 Gastro-esophageal reflux disease without esophagitis (principal); K31.1 Adult hypertrophic pyloric stenosis; K58.1 Irritable bowel syndrome with constipation; K59.01 Slow transit constipation; K44.9 Diaphragmatic hernia without obstruction or gangrene; R10.13 Epigastric pain | CPT/HCPCS: 99212 ==

== ENCOUNTER 2024-05-01 09:20 | Outpatient (REF) | payer OTHER, SELFPAY ==
[2024-05-02 10:48] LABS: H Pylori Breath Test Negative (Negative)
== END 2024-05-01 09:21 | disposition home or self-care (01) ==
LOC: HO.LNP 09:20
PROVIDERS: Visit Provider Nurse Practitioner Family
DX: K21.9 Gastro-esophageal reflux disease without esophagitis (principal); Z79.899 Other long term (current) drug therapy
CPT/HCPCS: 83013; 99211

== ENCOUNTER 2024-05-01 09:20 | Outpatient (AMB) | payer OTHER, SELFPAY ==
--- NOTE | 2024-05-01 09:45 | AM.OFFVISNUR ---
Intake Visit Reasons: H Pylori BT - Hold Omeprazole + Famotidine Allergies NSAIDS (Non-Steroidal Anti-Inflamma Allergy (Mild, Verified 04/09/24 14:55) Abdominal Pain Nursing Note Patient presents for collection of H Pylori breath test. Patient has been fasting for 1 hour (nothing to eat, drink, no chewing gum or smoking) has not taken any antacid medication for at least 2 weeks and has no allergies to artificial sweeteners.?? Assessment & Plan Assessment & Plan (1) GERD (gastroesophageal reflux disease): Code(s): K21.9 - Gastro-esophageal reflux disease without esophagitis Category: Medical Qualifiers: Esophagitis presence: esophagitis presence not specified Qualified Code(s): K21.9 - Gastro-esophageal reflux disease without esophagitis Plan Patient presents for collection of H Pylori breath test. Patient has been fasting for 1 hour (nothing to eat, drink, no chewing gum or smoking) has not taken any antacid medication for at least 2 weeks and has no allergies to artificial sweeteners.???This test checks for an overgrowth of bacteria in your stomach. We all have bacteria but some may have more than others. It is treatable. if the test comes back negative there is nothing else to do. If the test result is positive we will treat you with 2 antibiotics and a medication to decrease the acid in your stomach (PPI) for 2 weeks. Two weeks after you have completed the treatment we will retest you to make sure the overgrowth has resolved. Orders: Orders H Pylori Breath Test Today Patient Instructions: Process for specimen collection and reason for testing was explained to the patient. Specimen collection. Patient instructed to take a deep breath and then exhale into the blue bag, filling it up as much as possible. Patient instructed to drink a mixture of water and the artificial sweetener with a straw. A 15 minute wait period was observed. Patient instructed to take a deep breath and then exhale into the pink bag, filling it up as much as possible. Coding Level of Care Code Established Pt Est Pt Level 1 (89898) Patient Type Established Medical Decision Making Straight Forward Diagnoses Gastroesophageal reflux disease, unspecified whether esophagitis present K21.9 Esophagitis presence: esophagitis presence not specified
--- OUTSIDE RECORDS SUMMARY | 2024-05-01 10:33 | XMS_ITS | Patient Health Record ---
Author Organization [facility] Address [address] [place] [address] Care Team Providers Care Cafeteria Food Server Name Role Phone Maximino Jung MD Primary Care Provider Blas Cm Unavailable [phone] ALLERGIES Allergen (clinical drug ingredient) Drug/Non Drug [...] bowel syndrome without diarrhea (K58.9) Active confirmed 52082263 Problem Early satiety (R68.81) Active confirmed 398278588 Problem Gastroesophageal reflux disease without esophagitis (K21.9) Active confirmed 280775902 Problem Barretts esophagus without dysplasia (K22.70) Active confirmed 535167889 Problem Constipation, unspecified constipation type (K59.00) Active confirmed 00918102 Problem Pyloric stenosis (K31.1) Active confirmed 978069709 Problem Diarrhea, unspecified type (R19.7) Active confirmed 50990383 Problem Pyloric stricture (K31.1) Active confirmed 392470177 Problem Non-intractable vomiting without nausea, unspecified vomiting type (R11.11) Active confirmed 590026665 PLAN OF TREATMENT Future Test Test Name [...] Insured Coverage Start Date Coverage End Date [facility] [employer] [address] [place] [address] [id number] MARTHA ALCALA Self - patient is the insured [place] [facility] [place] [facility] [address] [place] [address] [id number] CARI MARTHA Self - patient is the [...] gastric biopsies neg for H.pylori Depression/Anxiety Denies [place],DM,CVA,Lung disease,renal dise ase Neg GB U/S in 07/[address] Juan bhakta Matthews--she had a negative colonoscopy and barium enema in 2007 Rheumatoid arthritis---sees Dr. Mitzy osuna Surgical History Surgery Date(Month/Year) Tubal ligation Lower back surgery 11/2017
--- OUTSIDE RECORDS SUMMARY | 2024-05-01 10:33 | XMS_ITS | Clinical Summary ---
Author Organization [facility] ity Address [address] [place] [address] Care Team Providers Care Extruding Machine Operator Name Role Phone Maximino Jung MD Primary Care Provider [phone] Social History Tobacco Use Types Packs/Day Years Used Date Smoking Tobacco: Never Assessed Comments Unknown Sex and Gender Information Value Date Recorded Sex Assigned at Not on file Legal Sex Female 1:10 PM EST Gender Identity Not on file Sexual Orientation [...] 02/01/2022 Social Influencers of Health Screening 02/01/2022 Pneumococcal Vaccine: 50+ Ye ars (1 of 1 - PCV) 2022 Zoster Vaccines (1 of 2) 2022 Influenza [...] patient's age to complete this topic Meningococcal B Vacine Aged Out No lo nger eligible based on patient's age to complete [...] age to complete this topic Care Teams Extruding Machine Operator Relationship Specialty Start Date End Date Maximino Jung MD [address] [place] [address] Dr Leroy [place] PCP - General Mail Weigher 06/16/17
== END 2024-05-01 09:55 | disposition home or self-care (01) ==
PROVIDERS: PCP Internal Medicine; Visit Provider Nurse Practitioner Family
DX: K21.9 Gastro-esophageal reflux disease without esophagitis (principal)

== ENCOUNTER 2024-07-27 10:23 | Emergency (ER) | payer OTHER, SELFPAY ==
[2024-07-27] VITALS (7 sets, daily range): BP systolic 101–133; BP diastolic 56–80; PULSE 76–80; RESP 16–20; TEMP 36–36.8; O2SAT 95–98; BMI 28.3
--- NOTE | ~2024-07-27 | XR_ITS ---
CLINICAL HISTORY: productive cough Chest Radiographs, 2 views Comparison: 03/26/24 Findings: No cardiomegaly. Normal mediastinal contours. No pneumothorax. No opacity. No pleural effusion. Normal upper abdomen. No acute fracture. Impression: No acute findings. This document has been electronically signed by: Cinthia Birmingham MD on 07/27/2024 16:20:03
--- NOTE | 2024-07-27 10:24 | ECG_ITS ---
Test Reason : CHEST PAIN Blood Pressure : */* mmHG Vent. Rate : 78 BPM Atrial Rate : 78 BPM P-R Int : 144 ms QRS Dur : 82 ms QT Int : 376 ms P-R-T Axes : 77 59 43 degrees QTcB Int : 428 ms Normal sinus rhythm Normal ECG When compared with ECG of 17-Mar-2023 10:50, No significant change was found Referred By: Generic ED Physician Electronically Signed By: Irineo Gomes
[2024-07-27 11:00] LABS: IDNOW Serial# 55D5AD1C; Strep A Nucleic Acid Negative (Negative)
--- NOTE | 2024-07-27 11:01 | ED_ITS ---
HPI - URI/Sore Throat General Chief Complaint: Upper Respiratory Symptoms Stated Complaint: chest pain Time Seen by Provider: 07/27/24 11:01 Source: patient Mode of arrival: ambulatory Limitations: no limitations History of Present Illness ED Provider: Rick Lindquist DO HPI Narrative: 54-year-old female with past medical history of abnormal uterine bleeding, anxiety, depression, rheumatoid arthritis, complex ovarian cysts, GERD, IBS and hiatal hernia presents to the ED for 2 days of sinus congestion, stuffy nose, chest pain and headache. Patient states she awoke with these symptoms yesterday morning and they have been constant, progressively worsening. She describes her chest pain as ?pressure?, located over the anterior chest without radiation. She denies any mitigating or exacerbating factors to the chest pain including with exertion. She reports associated nausea and sweating without dyspnea. She denies radiation through to her back or ripping or tearing pain. She describes her headache as global and does not have headaches in the past. Headache was also gradually worsening over the last 2 days. She took 1 tablet of Tylenol this morning without relief. She states she had an 8 day course of antibiotics 2 weeks ago for a sinus infection that essentially resolved until these symptoms started. She denies vomiting or diarrhea. Related Data Home Medications ?Medication ?Instructions ?Recorded ?Confirmed folic acid 1 mg tablet 1 mg PO DAILY 02/10/20 04/02/24 methotrexate sodium 2.5 mg tablet 12.5 mg PO QWEEK 02/10/20 04/02/24 fluticasone propionate 50 1 spray intranasal DAILY 01/16/23 12/12/23 mcg/actuation nasal spray,suspension gabapentin 600 mg tablet 600 mg PO BEDTIME 01/16/23 04/02/24 loratadine 10 mg tablet 10 mg PO DAILY 01/16/23 12/12/23 Previous Rx's ?Medication ?Instructions ?Recorded albuterol sulfate 90 mcg/actuation 1 inh inhalation QID PRN shortness 03/26/24 aerosol inhaler of breath or wheezing #6.7 grams amoxicillin 875 mg-potassium 1 tab PO BID #14 tabs 03/26/24 clavulanate 125 mg tablet benzonatate 100 mg capsule 100 mg PO TID PRN cough #14 caps 03/26/24 famotidine 20 mg tablet 20 mg PO BEDTIME #90 tabs 04/09/24 methylcellulose (laxative) 500 mg 500 mg PO DAILY #90 tabs 04/09/24 tablet (Fiber Therapy (methylcellulose)) omeprazole 40 mg capsule,delayed 40 mg PO DAILY #90 caps 04/09/24 release sennosides 8.6 mg tablet (Natural 17.2 mg (2 x 8.6 mg) PO BEDTIME 04/09/24 Senna Laxative) constipation #180 tabs citalopram 40 mg tablet 40 mg PO QAM #90 tabs 07/09/24 fluticasone propionate 50 1 spray intranasal BID #16 grams 07/27/24 mcg/actuation nasal spray,suspension (Flonase Allergy Relief) Allergies Allergy/AdvReac Type Severity Reaction Status Date / Time NSAIDS (Non-Steroidal Allergy Mild Abdominal Verified 07/27/24 10:36 Anti-Inflamma Pain Review of Systems 2 Review of Systems: Yes all other systems are reviewed and are negative [facility] Past Medical History Medical History H/O backache Pyloric stenosis GERD (gastroesophageal reflux disease) Hiatal hernia Rheumatoid arthritis YUE I (cervical intraepithelial neoplasia I) Breast pain, right Well woman exam Arthritis IBS (irritable bowel syndrome) Anxiety Depression Acid reflux Surgical History H/O colonoscopy History of dilatation and curettage Hx of colonoscopy History of esophagogastroduodenoscopy (EGD) History of biopsy (03/2017) History of endometrial ablation History of bilateral tubal ligation Family History Family History Mother Breast cancer Paternal Uncle Colon cancer Social History Social History Household Members Other:: sister Are you a primary health care technician to a significant other at home: No Do you presently have visiting nurse or other home services: No Alcohol intake: never Patient Tobacco Use Status: Current everyday Tobacco user Tobacco use type: Cigarette Cigarette Packs Per Day: 0.25 Cigarettes Per Day: 5.0 Smoked in Last 30 Days: Yes Use of substances other than those prescribed or required for medical reasons: Yes Substance Use Type: Marijuana Advance Directives: No Advance Directives Information Provided: Yes Do you have a plan to hurt others: No Plan Sexual orientation: Straight/Heterosexual Gender identity: Female Physical Exam 2 Vital Signs: Vital Signs: Last Vital Signs Temp 98.3 F 07/27/24 14:00 Pulse 76 07/27/24 14:00 Resp 16 07/27/24 14:00 BP 119/68 07/27/24 14:00 Pulse Ox 96 07/27/24 14:00 O2 Del Method Room Air 07/27/24 14:00 BMI result Body Mass Index 28.3 Constitutional: ?Alert, oriented, speaking in full sentences HEENT: ?Normocephalic, atraumatic. ?Tacky mucous membranes. No significant bogginess of the sinuses. Eyes: ?PERRL, EOMI Neck: ?Supple, nontender Chest: ?No chest wall tenderness Respiratory: ?Some subtle rhonchi with inspiration of the bilateral lungs, no wheezing, no crackles, no increased work of breathing Cardio: ?Regular rate and rhythm, no murmur, 2+ radial and DP pulses symmetrically GI: ?Soft, nondistended, nontender Back: ?Normal range of motion, nontender Skin: ?No rash, no lesions Neuro: ?Alert and oriented to person, place and time, moves all 4 extremities, no focal deficits Extremities: ?No swelling or tenderness, full range of motion Psych: ?Calm, alert and cooperative, appropriate behavior Medications Administered Discontinued Medications Generic Name Dose Route Start Last Admin Trade Name Freq PRN Reason Stop Dose Admin Diphenhydramine HCl 25 mg 07/27/24 11:21 07/27/24 12:05 Diphenhydramine Hcl 50 Mg/Ml Vial IVPUSH 07/27/24 11:22 25 mg ONCE ONE Administration Acetaminophen 1,000 mg in 100 mls @ 400 mls/hr 07/27/24 11:21 07/27/24 12:22 Ofirmev IV 07/27/24 11:35 Infused ONCE ONE Infusion Sodium Chloride 1,000 mls @ 999 mls/hr 07/27/24 11:30 07/27/24 13:44 Ns IV 07/27/24 12:30 Infused .Q1H1M ERROL Infusion Prochlorperazine Edisylate 10 mg 07/27/24 12:04 07/27/24 12:05 Prochlorperazine Edisylate 10 Mg/2 Ml Vial IVPUSH 07/27/24 12:05 10 mg ONCE ONE Administration Medical Decision Making Medical Decision Making [facility] Narrative: Pleasant female presenting with constant chest pain and headache with associated cough productive of yellow sputum over the last 2 days. Differential diagnosis includes viral syndrome such as upper respiratory infection, viral or bacterial pneumonia although less likely as the patient does not have a fever and is overall well-appearing, ACS is on the differential and if 1 troponin is unremarkable, essentially will be ruled out as her symptoms have been ongoing for the past 2 days. I have no suspicion for pulmonary embolism. Patient does not have pleuritic chest pain or lower extremity edema. She has no dyspnea as well or hypoxia. I do not suspect dissection or other dangerous etiology of chest pain. Her headache was gradual and I do not suspect subarachnoid hemorrhage or other dangerous etiology of the headache. We will further evaluate with labs and chest x-ray. We will treat her symptoms with IV acetaminophen, diphenhydramine and prochlorperazine as well as IV fluids. Chest x-ray interpretation from Radiology is unremarkable. Patient's pain improved with above medications. At this time her vitals are unremarkable and there are no concerns for bacterial infection. She reports adverse effects to pseudoephedrine in the past. We will recommend intranasal Flonase for her continue congestion and provided her return precautions. Patient is content with plan. Admission/Observation Consideration of admission/observation: Escalation of care including admission/observation considered Lab Data [facility] Lab Attestation statement: I reviewed the patient's lab results. No leukocytosis, no anemia, unremarkable troponin and metabolic panel, negative nasal swab and strep testing. 07/27/24 11:28 07/27/24 11:28 Labs: Lab Results 07/27/24 07/27/24 Range/Units 10:47 11:28 WBC 4.7 L (4.8-10.8) X10*3/uL RBC 4.48 (4.20-5.50) X10*6/uL Hgb 12.8 (12.0-16.0) g/dl Hct 38.7 (37.0-47.0) % MCV 86.4 (80.0-98.0) fL MCH 28.6 (27.0-33.0) pg MCHC 33.1 (31.0-35.0) g/dl RDW 13.2 (11.0-16.0) % Plt Count 208 (160-400) X10*3/uL MPV 9.9 (9.4-12.3) fL Immature Gran % (Auto) 0.2 (0.0-0.4) % Neut % (Auto) 65.1 (45-73) % Lymph % (Auto) 21.2 (20-40) % Coke % (Auto) 12.3 H (2-11) % Eos % (Auto) 0.6 (0-4) % Baso % (Auto) 0.6 (0-2) % Lymph # (Auto) 1.0 L (1.2-4.9) X10*3/uL Coke # (Auto) 0.6 (0.1-1.2) X10*3/uL Eos # (Auto) 0.0 (0.0-0.4) X10*3/uL Baso # (Auto) 0.0 (0.0-0.2) X10*3/uL Abs Immat Gran (auto) 0.01 (0.00-0.03) X10*3/uL Absolute Neuts (auto) 3.1 (2.0-8.3) x10*3/uL Absolute Nucleated RBC 0.000 (0.0-0.012) X10*3/uL Nucleated RBC % (auto) 0.0 (0.0-0.2) /100WBC Sodium 134 L (135-145) mmol/L Potassium 4.2 (3.3-5.1) mmol/L Chloride 101 (96-108) mmol/L Carbon Dioxide 24 (22-29) mmol/L Anion Gap 13 (12-20) BUN 10 (9-16) mg/dL Creatinine 0.92 (0.5-1.4) mg/dL Estim Creat Clear Calc 68.3 Estimated GFR > 60 Random Glucose 100 (60-115) mg/dL Calcium 9.3 (8.4-10.2) mg/dL Troponin I High Sens < 2.7 (<3.5-17.0) ng/L Influenza Type A (PCR) NEGATIVE (Negative) Influenza Type B (PCR) NEGATIVE (Negative) RSV RNA Qual (PCR) NEGATIVE (Negative) SARS-CoV-2 RNA (RT-PCR) NEGATIVE (Negative) S. pyogenes GrpA TITO Negative (Negative) Independent Interpretation I performed an independent interpretation of an: EKG and Plain X-Ray (Chest x- ray per my independent interpretation shows mild mediastinal lymph node enlargement, otherwise no significant findings.) Interpretation: Normal sinus rhythm at 78 beats per minute, normal axis, unremarkable intervals, no diagnostic ST wave elevation, there is some mild ST depression in the anterior leads, compared to prior dated 03/17/[address] depression is new, otherwise there are no significant changes. Discharge Plan Discharge Clinical Impression: Congestion of nasal sinus Patient Disposition: Home, Self-Care Instructions: Upper Respiratory Infection (ED), How to Use Nasal [place] (ED) Additional Instructions: We did not find any concerning findings for heart attack or pneumonia today. Your labs and vital signs as well as exam are reassuring. You can try [id number] Flonase as needed for nasal congestion over the course of a few days. If this does not help you can also try 1 spray of Afrin in each nostril again, for the next 3 days. Please return if you have fevers over 100.4 degrees F, shaking chills, worsening pain or difficulty breathing or any other new symptoms or concerns. Prescriptions: New fluticasone propionate [Flonase Allergy Relief] 50 mcg/actuation spray,suspension 1 spray intranasal BID Qty: 16 0RF Rx Instructions: administer into each nostril No Action citalopram 40 mg tablet 40 mg PO QAM Qty: 90 1RF amoxicillin-pot clavulanate 875-125 mg tablet 1 tab PO BID Qty: 14 0RF albuterol sulfate 90 mcg/actuation HFA aerosol inhaler 1 inh inhalation QID PRN (Reason: shortness of breath or wheezing) Qty: 6.7 0RF benzonatate 100 mg capsule 100 mg PO TID PRN (Reason: cough) Qty: 14 0RF folic acid 1 mg tablet 1 mg PO DAILY methotrexate sodium 2.5 mg tablet 12.5 mg PO QWEEK gabapentin 600 mg tablet 600 mg PO BEDTIME loratadine 10 mg tablet 10 mg PO DAILY fluticasone propionate 50 mcg/actuation spray,suspension 1 spray intranasal DAILY famotidine 20 mg tablet 20 mg PO BEDTIME Qty: 90 1RF omeprazole 40 mg capsule,delayed release(DR/EC) 40 mg PO DAILY Qty: 90 3RF Fiber Therapy (m-cellulose) 500 mg tablet 500 mg PO DAILY Qty: 90 2RF sennosides [Natural Senna Laxative] 8.6 mg tablet 17.2 mg PO BEDTIME Qty: 180 3RF Print Language: Armenian
[2024-07-27] MEDS: 0.9 % Sodium Chloride 1,000 ML 999 ML IV (11:31)
[2024-07-27 11:33] LABS: Influenza A PCR NEGATIVE (Negative); Influenza B PCR NEGATIVE (Negative); Resp Syncy Virus RNA Qual PCR NEGATIVE (Negative); SARS COV2 PCR INHOUSE NEGATIVE (Negative)
[2024-07-27 11:35] LABS: MANUAL DIFF FLAG NO
[2024-07-27 11:38] LABS: Basophils Percent Auto 0.6 % (0-2); Eosinophils Percent Auto 0.6 % (0-4); Hematocrit 38.7 % (37.0-47.0); Hemoglobin 12.8 g/dl (12.0-16.0); Imm Gran Abs Auto 0.01 X10*3/uL (0.00-0.03); Imm Gran Pct Auto 0.2 % (0.0-0.4); Lymphocytes Percent Auto 21.2 % (20-40); Mean Corpuscular HGB Conc 33.1 g/dl (31.0-35.0); Mean Corpuscular Hemoglobin 28.6 pg (27.0-33.0); Mean Corpuscular Volume 86.4 fL (80.0-98.0); Mean Platelet Volume 9.9 fL (9.4-12.3); Monocytes Absolute Auto 0.6 X10*3/uL (0.1-1.2); Monocytes Percent Auto 12.3 % (2-11); Neutrophils Absolute Auto 3.1 x10*3/uL (2.0-8.3); Neutrophils Percent Auto 65.1 % (45-73); Platelet Count 208 X10*3/uL (160-400); Red Blood Count 4.48 X10*6/uL (4.20-5.50); Red Cell Distribution Width 13.2 % (11.0-16.0); White Blood Count 4.7 X10*3/uL (4.8-10.8)
[2024-07-27 11:49] LABS: Anion Gap 13 (12-20); Blood Urea Nitrogen 10 mg/dL (9-16); Calcium 9.3 mg/dL (8.4-10.2); Carbon Dioxide 24 mmol/L (22-29); Chloride 101 mmol/L (96-108); Creatinine Clr Calc Pharmacy 68.3; Estimated Glomerular Filt Rate > 60; Glucose Random 100 mg/dL (60-115); Potassium 4.2 mmol/L (3.3-5.1); Sodium 134 mmol/L (135-145)
[2024-07-27] MEDS: Acetaminophen 1,000 MG/100 ML PIGGYBACK 400 MG IV (11:59)
[2024-07-27 12:02] LABS: Troponin-I High Sensitivity < 2.7 ng/L (<3.5-17.0)
[2024-07-27] MEDS: diphenhydrAMINE HCL 50 MG/ML VIAL 25 MG IVPUSH (12:05)
[2024-07-27] MEDS: Prochlorperazine Edisylate 10 MG/2 ML VIAL IVPUSH (12:05)
== END 2024-07-27 17:40 | disposition home or self-care (01) ==
PROVIDERS: Emergency Provider Emergency Medicine
DX: R07.89 Other chest pain (principal); R09.81 Nasal congestion; R11.0 Nausea; Z79.899 Other long term (current) drug therapy; Z03.818 Encounter for observation for suspected exposure to other biological agents ruled out
CPT/HCPCS: 0241U; 36415; 71046; 80048; 84484; 85025; 87651; 93005; 96361; 96374; 96375; 99285; J0131; J0737; J1200

== ENCOUNTER → 2024-07-27 10:24 | Outpatient (BNV) | payer OTHER, SELFPAY | PROVIDERS: Emergency Provider Emergency Medicine; Visit Provider Internal Medicine Cardiovascular Disease | DX: R07.9 Chest pain, unspecified (principal) | CPT/HCPCS: 93010 ==

== ENCOUNTER → 2024-07-27 11:21 | Outpatient (BNV) | payer OTHER, SELFPAY | PROVIDERS: Emergency Provider Emergency Medicine; Visit Provider Radiology Diagnostic Radiology | DX: R05.8 Other specified cough (principal) | CPT/HCPCS: 71046 ==

== ENCOUNTER 2025-01-16 14:22 | Outpatient (REF) | payer OTHER, SELFPAY ==
--- NOTE | ~2025-01-16 | MM_ITS ---
EXAMINATION: MM DIAGNOSTIC DIGITAL BREAST TOMOSYNTHESIS, BILATERAL CLINICAL INFORMATION: Year follow-up for faint calcifications in the central outer right breast posterior depth. COMPARISON: Mammography: Comparison is made with relevant prior exams. TECHNIQUE: Digital breast mammography with tomosynthesis is performed in both the craniocaudal and mediolateral oblique views along with computer-aided detection (CAD). FINDINGS: The breasts are heterogeneously dense, which may obscure small masses. Faint grouped calcifications in the upper outer right breast which are punctate and round are not significantly changed from prior magnification views to slightly less conspicuous dating back for more than 2 years and therefore benign. There are no significant masses, abnormal calcifications, or other abnormalities. Results are provided to the patient at time of visit by the technologist. MM/MM tomosynthesis diagnostic BI IMPRESSION: Left: Negative. Right: Faint punctate calcifications in the central outer right breast posterior depth are not significantly changed on magnification views dating back for more than 2 years and therefore benign. ASSESSMENT: BI-RADS Category 2: Benign RECOMMENDATION: 1 year F/U This patient's information was entered into a reminder system with a target due date for their next mammogram. Electronically signed by: Guadalupe Richmond DO 01/16/2025 03:19 PM TAD
--- OUTSIDE RECORDS SUMMARY | 2025-01-16 17:46 | XMS_ITS | Patient Health Record ---
Author Organization [facility] Address [address] [place] [address] Care Team Providers Care Innersole Fitter Name Role Phone Erich (RETIRED) Maximino GARCIA Primary Care Provide Blas Dobbs Unavailable [phone] Allergies Allergen (clinical drug ingredient) Drug/Non Drug Allergy documented on EMR Reaction Allergy Type Onset Date Status Sudafed Unknown Drug Allergy Active Reason For Referral No Information Medications Medication SIG (Take, Route, Frequency, Duration) Notes [...] TAKE 1 TABLET BY MOUTH TWICE A DAY; Duration: 90 Active Immunizations Vaccine Route Administration Date Status Comme nts Influenza Unknown 01/09/2018 Administered Social History Tobacco Use: Social History Observation Description Date Details (start date - stop date) Former Smoker NA - NA Tobacco Use/Smoking Question Answer Notes Patient is a former smoker How long has it been since you last smoked? 1-5 years Section Notes: Smoker; occasional alcohol Smoker--not daily; occasiona l alcohol Smoker--not daily; occasiona l alcohol Smoker--not daily; occasiona l alcohol Smoker--not daily; occasiona l alcohol Smoker--not daily; occasiona l alcohol Problems Problem Type SNOMED Code ICD Code Onset Dates Problem Status W/U Status Risk Notes Problem Irritable bowel syndrome (60405485) Irritable bowel syndrome without diarrhea (K58.9) Active confirmed Problem Early satiety (617921393) Early satiety (R68.81) Active confirmed Problem Gastroesophageal reflux disease without esophagitis (915610157) Gastroesophageal reflux disease without esophagitis (K21.9) Active confirmed Problem Mukherjee's esophagus (799537223) Barretts esophagus without dysplasia (K22.70) Active confirmed Problem Constipation (77622379) Constipation, unspecified constipation type (K59.00) Active confirmed Problem Pyloric stenosis (662909167) Pyloric stenosis (K31.1) Active confirmed Problem Diarrhea (04872805) Diarrhea, unspecified type (R19.7) Active confirmed Problem Acquired hypertrophic pyloric stenosis (22145304) Pyloric stricture (K31.1) Active confirmed Problem Vomiting without nausea (581401771898834) Non-intractable vomiting without nausea, unspecified vomiting type (R11.11) Active confirmed Plan Of Treatment Future Test Test Name Order Date UPPER [...] Insured Coverage Start Date Coverage End Date [facility] [employer] [address] [place] [address] [id number] MARTHA ALCALA Self - patient is the insured [place] [facility] [address] [place] [address] [id number] MARTHA ALCALA Self - patient is the insured Medical (General) History Medical History History ICD Code IBS--normal duodenal [...] gastric biopsies neg for H.pylori Depression/Anxiety Denies OR,DM,CVA,Lung disease,renal dise ase Neg GB U/S in 07/[address] Martinez at [facility]--she had a negative colonoscopy and barium enema in 2007 Rheumatoid arthritis---sees Dr. Mitzy osuna Surgical History Surgery Date(Month/Year) Tubal ligation Lower back surgery 11/2017
--- OUTSIDE RECORDS SUMMARY | 2025-01-16 17:46 | XMS_ITS | Clinical Summary ---
Author Organization [facility] ity Address [address] [place] [address] Care Team Providers Care Brazer Crawler Torch Name Role Phone Maximino Jung MD Primary Care Provider [phone] Social History Tobacco Use Types Packs/Day Years Used Date Smoking Tobacco: Never Assessed Comments Unknown Sex and Gender Information Value Date Recorded Sex Assigned at Not on file Legal Sex Female 1:10 PM EST Gender Identity Not on file Sexual Orientation Not on file Plan of Treatment Health Maintenance Due Date Last Done Comments Breast Cancer Screening 1972 Colorectal Cancer Screening: Colonoscopy 1972 DTaP,Tdap,and Td Vaccines (1 - Tdap) 06/04/1991 Hepatitis B Vaccines (1 of 3 - 19+ 3-dose series) 06/04/1991 Cervical Cancer Screening: P ap Smear 1993 HIV Screening 02/01/2022 Hepatitis C Screening 02/01/2022 Social Influencers of Health Screening 02/01/2022 Pneumococcal Vaccine: 50+ Ye ars (1 of 1 - PCV) 2022 Zoster Vaccines (1 of 2) 2022 Depression Screening 03/06/2024 COVID-19 Vaccine (1 - 2024-2 6 season) 2024 Influenza Vaccine (#1) 2024 RSV Immunization Adult Patie nts (1 - 1-dose 75+ series) 06/04/2047 HIB Vaccines Aged Out No longer eligi [...] age to complete this topic Meningococcal B Vaccine Aged Out No l onger eligible based on patient's age to complete this topic RSV Immunization Patients Un josé 20 months Aged Out No longer eligible b ased on patient's age to complete this topic Varicella Vaccines Aged Out No longer eligible based on patient's age to complete this topic Care Teams Brazer Crawler Torch Relationship Specialty Start Date End Date Maximino Jung MD [address] [place] [address] Dr Harper [place] PCP - General Liaison Planner 06/16/17
== END 2025-01-16 14:23 | disposition home or self-care (01) ==
LOC: HO.MAMMO 14:22
PROVIDERS: Visit Provider Obstetrics & Gynecology
DX: R92.1 Mammographic calcification found on diagnostic imaging of breast (principal)
CPT/HCPCS: 77062; 77066

== ENCOUNTER → 2025-01-16 14:30 | Outpatient (BNV) | payer OTHER, SELFPAY | PROVIDERS: Visit Provider Internal Medicine | DX: R92.8 Other abnormal and inconclusive findings on diagnostic imaging of breast (principal) | CPT/HCPCS: 77062; 77066 ==

== ENCOUNTER 2025-01-21 09:25 | Outpatient (AMB) | payer OTHER, SELFPAY ==
--- NOTE | 2025-01-21 09:29 | A.OFFPC_ITS ---
Vital Signs 01/21/25 09:39 Height 5 ft 2.28 in Weight 166 lb BMI 30.1 BP 106/74 Blood Pressure Location Lt brachial Position Sitting Respiration 18 Pulse 78 Pulse Source Pulse Oximeter Temp 97.1 F Temp Source Temporal Artery Scan Pulse Oximetry (%) 97 Oxygen Delivery Method Room Air Intake Visit Reasons: ELVI- Dr. Jung Floor Manager Required: No Accompanied by: Self / Same As Patient Allergies lobster Allergy (Intermediate, Verified 01/24/25 17:10) Itching NSAIDS (Non-Steroidal Anti-Inflamma Allergy (Mild, Verified 01/24/25 15:44) Abdominal Pain Medication List - Last Reconciled 02/03/25 by PRIMITIVO Joseph albuterol sulfate 90 mcg/actuation 1 inh inhalation QID PRN citalopram 40 mg PO QAM doxycycline monohydrate 100 mg PO BID estradiol 0.01%(0.1mg/gram) (Estrace) 1 g vaginal 2XW fluticasone propionate 50 mcg/actuation (Flonase Allergy Relief) 1 spray intranasal BID folic acid 1 mg PO DAILY gabapentin 600 mg PO BEDTIME hydrocortisone 2.5% 1 appl topical BID PRN hydroxyzine HCl 25 mg PO TID PRN loratadine 10 mg PO DAILY PRN methotrexate sodium 12.5 mg PO QWEEK omeprazole 40 mg PO DAILY Tobacco use date assessed: 01/21/25 Dental Screening Dental Screen Date: 01/21/25 Did you have a dental visit in the last 12 months?: No Did you have a dental problem in the last 6 months where you did not have access to dental care?: No Was dental information given to patient?: Yes HPI HPI Comments History of Present Illness Details History of Present Illness The patient is a 54-year-old female with AR/Asthma, GERD, MDD, RA, chronic pain and obesity presenting to [facility] care and for management of multiple chronic conditions. She has a history of rheumatoid arthritis managed by Dr. Robison, whom she sees every 6 weeks to 2 months. For this, she takes methotrexate, gabapentin, and folic acid, but reports she lives in constant pain, with some days being better than others. The patient reports a history of depression and anxiety, for which she is prescribed citalopram. She endorses feeling anxious every day. Additionally, the patient has a history of allergies and asthma, treated with loratadine, Flonase, and an albuterol inhaler, which she reports using infrequently, perhaps once a year. She is also on omeprazole for a known hiatal hernia and acid reflux. She complains of pain on her right side that prevents her from lying on that side, which she feels may be related to her sciatic nerve. This pain is associated with numbness, tingling, and an unusual sensation that radiates down her leg. She cannot recall the last time she had an x-ray of her back. The patient also reports a recurring, irritated, and raw-appearing rash around her nose and mouth, which was previously treated successfully with a prescribed ointment. She has also recently experienced sinus pressure and soreness around her eyes when lying down, with some blood-tinged mucus. Her medical history is notable for hearing loss, for which she has hearing aids but does not wear them consistently, and she wears glasses for vision c orrection. She has a family history of sleep apnea. Medical History: - Rheumatoid arthritis - Depression - Anxiety - Asthma - Allergic rhinitis - Hiatal hernia with acid reflux - Hearing loss Surgical History: No prior surgical history was discussed. Medications: - Loratadine for allergies - Flonase for allergies - Albuterol inhaler as needed for asthma - Omeprazole for hiatal hernia and acid reflux - Citalopram for depression and anxiety - Methotrexate for rheumatoid arthritis - Gabapentin for rheumatoid arthritis - Folic acid for rheumatoid arthritis Family History: - Sleep apnea Health Maintenance As part of establishing care and ongoing health maintenance, blood work will be ordered to check thyroid function, cholesterol levels, and vitamin D. A follow- up appointment will be scheduled to review the results of all diagnostic tests. She has an appointment for mammogram on 01/23. She is due for PAP in 2028. She is due for colonoscopy in 2031. Patient was informed and verbally consented to the use of an ambient scribe for clinic note documentation during this visit. [facility] Medical History (Updated 02/03/25 @ 00:15 by PRIMITIVO Joseph) Acid reflux Acute sinusitis Anxiety Arthritis Breast pain, right YUE I (cervical intraepithelial neoplasia I) Depression Dermatitis GERD (gastroesophageal reflux disease) H/O backache Hiatal hernia IBS (irritable bowel syndrome) Low back pain with right-sided sciatica Medication management Pyloric stenosis Rheumatoid arthritis Well woman exam Well woman exam with routine gynecological exam Surgical History History of bilateral tubal ligation History of biopsy (03/2017) History of dilatation and curettage History of endometrial ablation History of esophagogastroduodenoscopy (EGD) Hx of colonoscopy (~07/13/21) Family History (Updated 01/24/25 @ 17:11 by Latasha Mccracken CNM) Mother Breast cancer Paternal Uncle Colon cancer Son Bipolar 1 disorder, mixed Social History (Updated 01/24/25 @ 17:01 by Latasha Mccracken CNM) Household Members Other:: sister Housing: Apartment Are you a primary respiratory care instructor to a significant other at home: No Do you presently have visiting nurse or other home services: No Alcohol intake: never Patient Tobacco Use Status: Current everyday Tobacco user ( blunt marijuana wrapped in nicotine paper) Tobacco use type: Cigarette Cigarette Packs Per Day: 0.25 Cigarettes Per Day: 5.0 e-Cigarette/Vaping Use: Never Used Substance Use Type: Marijuana service: No Current occupational status: employed 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 How often do you have a drink containing alcohol?: Never 3. How often do you have six or more drinks on one occasion?: Never Total Score: 0 Review of Systems Narrative Review of Systems - CONSTITUTIONAL: Reports chronic pain. - EYES: Reports satisfactory vision with current glasses. - EARS: Reports hearing loss and has hearing aids which she is not currently wearing. - RESPIRATORY: Reports sinus pressure, soreness around the eyes, and blood- tinged mucus. - Denies chest pain, shortness of breath, and cough. - CARDIOVASCULAR: Reports occasional lightheadedness and dizziness. - Denies chest pain or edema in the legs. - GI: Reports that an unknown medication upsets her stomach. - MUSCULOSKELETAL: Reports chronic pain from rheumatoid arthritis, particularly on the right side. - NEUROLOGIC: Reports numbness and tingling associated with her right-sided pain. - SKIN: Reports an intermittent, irritated, raw-feeling rash around her nose and mouth. - PSYCHIATRIC: Reports daily feelings of anxiety. Physical exam (Primary Care) Vital Signs: Last Vital Signs Temp 97.1 F 01/21/25 09:39 Pulse 78 01/21/25 09:39 Resp 18 01/21/25 09:39 BP 106/74 01/21/25 09:39 Pulse Ox 97 01/21/25 09:39 Oxygen Delivery Method Room Air 01/21/25 09:39 BMI result Body Mass Index 30.1 GENERAL Well developed, obese, in no apparent distress HEENT Head-Normocephalic Eyes- PERRLA, EOMI, Conjuctiva clear, lids WNL Ears- Canals clear, TMs WNL Mouth/Throat-No lesions, erythema, no exudate Sinuses tender to palpation Neck- Supple, No lymphadenopathy, thyroid WNL RESPIRATORY Normal I:E, Clear to auscultation CARDIOVASCULAR Regular, rate and rhythm, No murmurs or rubs GASTROINTESTINAL Soft, nontender, normal bowel sounds, no masses MUSCULOSKELETAL Back-Decreased ROM, Tender in Lumbar, Tender with motion, Straight leg raise negative, DTR 2+ symmetrical, Gait normal Joints- no swelling or deformity SKIN Scaly macular lesions around mouth and nose NEUROLOGICAL Gait normal PSYCHIATRIC Oriented to person, place and time Mood and affect WNL Appearance WNL Speech WNL Thought processes WNL Tobacco/Smoking Status: Tobacco use Status Tobacco use date assessed 01/21/25 01/21/25 09:32 Patient Tobacco Use Status Current everyday Tobacco ( 01/21/25 09:41 blunt marijuana wrapped in nicotine paper) Tobacco use type Cigarette 01/21/25 09:32 e-Cigarette/Vaping Use Never Used 01/21/25 09:41 Coding Level of Care Code New Pt New Pt Level 4 (87912) Patient Type New Diagnoses Low back pain with right-sided sciatica M54.41 Rheumatoid arthritis M06.9 Anxiety F41.9 Acute sinusitis J01.90 Dermatitis L30.9 Time Spent (min) 35 Comment Time spent on chart review, medication reconciliation, H&P, patient education and orders. Assessment & Plan Assessment & Plan (1) Low back pain with right-sided sciatica: Code(s): M54.41 - Lumbago with sciatica, right side Category: Medical (2) Rheumatoid arthritis: Code(s): M06.9 - Rheumatoid arthritis, unspecified Category: Medical (3) Anxiety: Code(s): F41.9 - Anxiety disorder, unspecified Category: Medical (4) Acute sinusitis: Code(s): J01.90 - Acute sinusitis, unspecified Category: Medical (5) Dermatitis: Code(s): L30.9 - Dermatitis, unspecified Category: Medical Plan Plan Patient was informed and verbally consented to the use of an ambient scribe for clinic note documentation during this visit. 1. Sciatica Assessment is for right-sided pain with radiation down the leg and associated numbness/tingling, suspicious for sciatica. An x-ray of the lower back will be ordered to further evaluate. 2. Premature Ventricular Contractions An irregular heart rhythm with occasional premature beats was noted on auscultation. An in-office EKG was performed to evaluate the rhythm. The patient was educated on the nature of premature ventricular contractions (PVCs), explaining that they are often benign. 3. Acute Sinusitis The patient's symptoms of sinus pressure, pain around the eyes, and blood-tinged mucus are consistent with a sinus infection. A prescription for amoxicillin will be sent to the pharmacy. 4. Dermatitis The patient has an intermittent, irritated rash around her nose and mouth. A mild steroid cream will be prescribed, and I will investigate her records to identify the previous effective treatment. 5. Generalized Anxiety Disorder The patient reports ongoing daily anxiety despite taking citalopram. Citalopram will be refilled, and a new prescription for hydroxyzine 25 mg will be provided for as-needed use, up to three times a day. 6. Rheumatoid Arthritis The patient's rheumatoid arthritis is managed by her specialist, Dr. Robison. To ensure continuity of care, the patient was given our office information to provide to Dr. Robison so his reports can be sent to our office. Discussion Notes I discussed my finding of an occasional skipped heartbeat with the patient. I explained the likely cause is a premature ventricular contraction (PVC) and described the electrical pathway of the heart to help her understand the mechanism. I reassured her that PVCs are common, can be caused by various factors like stress or caffeine, and are generally not a concern unless they occur frequently. I informed her that we would perform an EKG today for further evaluation. We discussed her ongoing daily anxiety. I recommended hydroxyzine 25 mg to be taken as needed, up to three times a day, and reassured her regarding her concerns about taking new medication by explaining it is a low dose. I outlined the plan to order an x-ray of her lower back for her right-sided pain and blood work for health maintenance. I explained that I am prescribing amoxicillin for a suspected sinus infection and a mild steroid cream for her facial rash. I provided instructions for where to have the tests completed and how to schedule a follow-up visit to review all results. Patient Instructions - Please go to the hospital to get blood work and an X-ray of your lower back. - We have sent new prescriptions and refills for you to the [facility] on [facility]. - Take the new medication for anxiety, hydroxyzine, only when you feel anxious. You can take it up to three times a day if needed. - The medical laboratory technicians will be in shortly to perform a heart tracing (EKG) here in the office. - Please give our office's information card to your arthritis doctor, Dr. Robison, so that he can send us your medical records. - Please schedule a follow-up appointment at the front end alignment specialist so we can go over all your results. Orders: Orders Vitamin D 25-OH Total 01/21/25 K58.1 - Irritable bowel syndrome with constipation, F41.9 - Anxiety disorder, unspecified, F32.9 - Major depressive disorder, single episode, unspecified TSH reflex Free T4 01/21/25 F32.9 - Major depressive disorder, single episode, unspecified, F41.9 - Anxiety disorder, unspecified Lipid Panel 01/21/25 Z13.220 - Encounter for screening for lipoid disorders Comprehensive Met. Panel 01/21/25 Z79.899 - Other rubbing bed operator (current) drug therapy, M06.9 - Rheumatoid arthritis, unspecified, F41.9 - Anxiety disorder, unspecified, F32.9 - Major depressive disorder, single episode, unspecified XR lumbar spine 2-3V 01/21/25 M54.41 - Lumbago with sciatica, right side Medications: New hydrocortisone 2.5% 1 appl topical BID PRN 30 grams 0RF skin irritation/face hydroxyzine HCl 25 mg PO TID PRN 90 tabs 1RF anxiety doxycycline monohydrate 100 mg PO BID 20 caps 0RF for sinus infection Refilled citalopram 40 mg PO QAM 90 tabs 1RF
[2025-01-21 09:39] VITALS: BP 106/74; PULSE 78; RESP 18; TEMP 36.2; O2SAT 97; BMI 30.1
== END 2025-01-21 10:26 | disposition home or self-care (01) ==
PROVIDERS: PCP Physician Assistant Medical; Visit Provider Physician Assistant Medical
DX: M54.41 Lumbago with sciatica, right side (principal); M06.9 Rheumatoid arthritis, unspecified; F41.9 Anxiety disorder, unspecified; J01.90 Acute sinusitis, unspecified; L30.9 Dermatitis, unspecified

== ENCOUNTER 2025-01-21 09:25 | Outpatient (REF) | payer OTHER, SELFPAY ==
--- NOTE | ~2025-01-21 | XR_ITS ---
EXAMINATION: XR LUMBOSACRAL SPINE CLINICAL INFORMATION: M54.41 - Lumbago with sciatica, right side COMPARISON: May 13, 2021 TECHNIQUE: AP and lateral views, upright position. FINDINGS: S-shaped curvature of the thoracolumbar spine with a rotatory component. There is a levoconvex curvature in the lower lumbar spine and dextroconvex curvature of the thoracolumbar junction. Multilevel endplate sclerosis and small marginal osteophyte formation. Grade 1 anterolisthesis L5-S1. Probable spina bifida occulta S1. Probable status post laminectomy, L5-S1. XR/XR lumbar spine 2-3V IMPRESSION: Scoliosis and multilevel spondylosis. Grade 1 anterolisthesis L5-S1. Electronically signed by: Cuco Jones MD 01/21/2025 11:06 AM TAD SINGH
[2025-01-21 11:48] LABS: Alanine Aminotransferase 25 U/L (0-31); Albumin Level 4.0 g/dL (3.5-5.0); Alkaline Phosphatase 108 U/L (39-117); Anion Gap 6 (12-20); Aspartate Amino Transferase 30 U/L (5-31); Blood Urea Nitrogen 12 mg/dL (9-16); Calcium 8.9 mg/dL (8.4-10.2); Carbon Dioxide 29 mmol/L (22-29); Chloride 106 mmol/L (96-108); Cholesterol 140 mg/dL (<200); Estimated Glomerular Filt Rate > 60; HDL Cholesterol 49 mg/dL (>40); Potassium 4.1 mmol/L (3.3-5.1); Sodium 137 mmol/L (135-145); Total Protein 8.2 g/dL (6.5-8.0); Triglycerides 77 mg/dL (<150)
== END 2025-01-21 09:26 | disposition home or self-care (01) ==
LOC: HO.LAB 09:25
PROVIDERS: PCP Physician Assistant Medical; Visit Provider Physician Assistant Medical
DX: Z13.220 Encounter for screening for lipoid disorders (principal); K58.1 Irritable bowel syndrome with constipation; F41.9 Anxiety disorder, unspecified; F32.9 Major depressive disorder, single episode, unspecified; M06.9 Rheumatoid arthritis, unspecified; M54.41 Lumbago with sciatica, right side; J01.90 Acute sinusitis, unspecified; L30.9 Dermatitis, unspecified; Z79.899 Other long term (current) drug therapy; Z79.2 Long term (current) use of antibiotics; Z79.631 Long term (current) use of antimetabolite agent
CPT/HCPCS: 36415; 72100; 80053; 80061; 82306; 84443; 99202

== ENCOUNTER → 2025-01-21 10:40 | Outpatient (BNV) | payer OTHER, SELFPAY | PROVIDERS: PCP Physician Assistant Medical; Visit Provider Radiology Diagnostic Radiology | DX: M54.41 Lumbago with sciatica, right side (principal); M47.817 Spondylosis without myelopathy or radiculopathy, lumbosacral region | CPT/HCPCS: 72100 ==

== ENCOUNTER 2025-01-24 15:38 | Outpatient (AMB) | payer OTHER, SELFPAY ==
--- NOTE | 2025-01-24 15:41 | A.OFFVIS_ITS ---
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: No Information Interpreted: non-clinical & clinical Rn Transplant: Rn Transplant Present (Rosaura Correia LPN) Accompanied by: Self / Same As Patient Allergies lobster Allergy (Intermediate, Verified 01/24/25 17:10) Itching NSAIDS (Non-Steroidal Anti-Inflamma Allergy (Mild, Verified 01/24/25 15:44) Abdominal Pain Medication List - Last Reconciled 01/24/25 by Rosaura Correia LPN albuterol sulfate 90 mcg/actuation 1 inh inhalation QID PRN citalopram 40 mg PO QAM doxycycline monohydrate 100 mg PO BID fluticasone propionate 50 mcg/actuation (Flonase Allergy Relief) 1 spray intranasal BID folic acid 1 mg PO DAILY gabapentin 600 mg PO BEDTIME hydrocortisone 2.5% 1 appl topical BID PRN hydroxyzine HCl 25 mg PO TID PRN loratadine 10 mg PO DAILY PRN methotrexate sodium 12.5 mg PO QWEEK omeprazole 40 mg PO DAILY Is last menstrual period known: Yes Last menstrual period: 01/24/18 Do you need a note to return to daycare/school/sports/work: No HPI Comments Details: Pt presents today for ANNUAL exam She has the following concerns: decreased libido, vaginal dryness, urine stress incontinence, Menopausal x 5+ yrs, hot flashes less frequent She is not currently in a relationship. Exercise: limited Nutrition/calcium: adequate intake Contraception: post meopause/tubal. denies any abnormal vag bleeding Last Pap: 2023 , Results: neg, neg hpv Last mammo: 01/2025, Results neg [facility] Medical History (Updated 01/24/25 @ 16:07 by Latasha Mccracken CNM) Well woman exam with routine gynecological exam Low back pain with right-sided sciatica Medication management H/O backache Pyloric stenosis GERD (gastroesophageal reflux disease) Hiatal hernia Rheumatoid arthritis YUE I (cervical intraepithelial neoplasia I) Breast pain, right Well woman exam Arthritis IBS (irritable bowel syndrome) Anxiety Depression Acid reflux Surgical History History of dilatation and curettage Hx of colonoscopy (~07/13/21) History of esophagogastroduodenoscopy (EGD) History of biopsy (03/2017) History of endometrial ablation History of bilateral tubal ligation Family History (Updated 01/24/25 @ 17:11 by Latasha Mccracken CNM) Mother Breast cancer Paternal Uncle Colon cancer Son Bipolar 1 disorder, mixed Social History (Updated 01/24/25 @ 17:01 by Latasha Mccracken CNM) Household Members Other:: sister Housing: Apartment Are you a primary career and technology education teacher to a significant other at home: No Do you presently have visiting nurse or other home services: No Alcohol intake: never Patient Tobacco Use Status: Current everyday Tobacco user ( blunt marijuana w rapped in nicotine paper) Tobacco use type: Cigarette Cigarette Packs Per Day: 0.25 Cigarettes Per Day: 5.0 e-Cigarette/Vaping Use: Never Used Substance Use Type: Marijuana service: No Current occupational status: employed 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, 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 Sexual orientation: Straight/Heterosexual Gender identity: Female Female Reproductive History Menstrual Age of Menarche: 14 Date of last menstrual period: 01/24/18 control method: permanent sterilization Menopause type: natural Total pregnancies: 5 Number of Living Children: 4 Ab spontaneous: 1 Date of last pap smear: 05/17/23 History of abnormal pap smear: Yes (2022 Cin) Date of Mammogram: 01/16/25 History of abnormal mammogram: No Review of Systems Const Reports no additional complaints Eyes Reports no additional complaints ENT Reports no additional complaints Card Reports no additional complaints Resp Reports no additional complaints GI Reports no additional complaints Reports as per [facility] Skin/Breast Reports system reviewed and no additional complaints, except as documented Physical Exam Vital Signs: Last Vital Signs BP 116/72 01/24/25 15:49 BMI result Body Mass Index 30.7 Const General: cooperative, healthy appearing and no acute distress Orientation/consciousness: patient oriented x3 HEENT Head: Yes normal to inspection and Yes normocephalic Ears: external ears normal General nose exam: Normal external nose present Neck Neck: Yes normal visual inspection Chest Breast/axilla inspection: normal inspection of the breasts, normal inspection of the axillae and Other (No skin changes, peau d orange, or nipple discharge noted) Breast/axilla palpation: normal palpation of the breasts, normal palpation of the axillae and no axillary lymphadenopathy Resp Effort & Inspection: normal respiratory effort and able to speak in complete sentences GI Inspection: No distended Palpation (GI): Soft to palpation, nontender and no masses Percussion: Yes normal to percussion Rectal Exam - Female: No External hemorrhoid(s) present External Female Exam: normal external appearance, normal appearance of the urethra and other (stage 1 cystocele noted) Speculum Exam - Vagina: normal appearance of the vagina and normal vaginal discharge Speculum Exam - Cervix: normal appearance of the cervix and normal palpation (neg CMT) Bimanual exam- vagina & uterus: normal bimanual exam, normal palpation (neg CMT), uterine mobility normal and non-tender Bimanual Exam- Adnexa, other: no masses and No adnexal tenderness Skin General skin exam: no rashes or lesions noted Neuro General: patient oriented x3 and moves all extremities Extrem General: Yes full ROM Psych Speech and movement: Normal speech and movement present Affect: normal affect Attitude: cooperative Thought process: Normal thought process present Assessment & Plan Assessment & Plan (1) Well woman exam with routine gynecological exam: Code(s): Z01.419 - Encounter for gynecological examination (general) (routine) without abnormal findings Category: Medical (2) Vasomotor symptoms due to menopause: Code(s): N95.1 - Menopausal and female climacteric states (3) Screening breast examination: Code(s): Z12.39 - Encounter for other screening for malignant neoplasm of breast (4) Decreased libido: Code(s): R68.82 - Decreased libido (5) Atrophic vaginitis: Code(s): N95.2 - Postmenopausal atrophic vaginitis Plan During the visit, the following areas of concern were addressed: Regular exercise Healthy lifestyle Menopausal/andrea-menopausal signs and symptoms, including nonprescription strategies for management Health Maintenance and Screening -Reviewed ASCCP guidelines for Paps and yearly (bi-yearly ) pelvic exam. -Reviewed and encouraged diet and exercise for cardiovascular and bone health -Reviewed breast self-awareness. Importance of yearly mammogram after age 40 (earlier if first-degree relative with breast cancer at a younger age ) Discuss use of 3 times per week weight-bearing exercise, vitamin D3 and servings of dietary calcium daily for bone health. -continue to follow with PCP for general medical care, immunizations. Screening strategies for colon cancer after age 50. Discussion of Kegel exercises for urinary incontinence Family and personal history of cancer reviewed. Genetic screening - not indicated The patient has BMI: 30 The patient is overweight. Approaches towards weight loss are discussed including burning more calories than one takes in by frequent, small meals, portion control, avoiding eating before bedtime, regular exercise with an emphasis on duration rather than intensity, strength training exercise RTO one year or sooner flip Mccracken CNM Note about provider documentation : If you or the patient named in this chart and are reviewing your medical notes, please note that medical documentation is often written with abbreviations and medical terminology, and directed for other providers who may be involved in your care as well. Documentation is critical to record what has happened, what tests were ordered, and so they are interpreted with the resulting diagnoses. These nodes have been made available for patient review but not specifically written for the patient. Important health information is always given to my patients in clinical instructions. Please review your after visit summary and our contact our clinical staff if you have any questions. Medications: New estradiol 0.01%(0.1mg/gram) (Estrace) 1 g vaginal 2XW 42.5 grams 0RF Coding Level of Care Code Est Pt Prev Care 40-64y(69603) Diagnoses Well woman exam with routine gynecological exam Z01.419 Vasomotor symptoms due to menopause N95.1 Screening breast examination Z12.39 Decreased libido R68.82 Atrophic vaginitis N95.2
--- OUTSIDE RECORDS SUMMARY | 2025-01-24 15:41 | XMS_ITS | Clinical Summary ---
Author Organization [facility] ity Address [address] [place] [address] Care Team Providers Care Physician Practice Market Manager Name Role Phone Maximino Jung MD Primary Care Provider [phone] Social History Tobacco Use Types Packs/Day Years [...] age to complete this topic Care Teams Physician Practice Market Manager Relationship Specialty Start Date End Date Maximino Jung MD [address] [place] [address] Dr Harper [place] PCP - General Rail Splitter 06/16/17
--- OUTSIDE RECORDS SUMMARY | 2025-01-24 15:41 | XMS_ITS | Patient Health Record ---
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 Role Phone Erich (RETIRED) Maximino GARCIA Primary Care Provide Blas Dobbs Unavailable [phone] Allergies Allergen (clinical drug ingredient) Drug/Non Drug Allergy documented on EMR Reaction Allergy Type Onset Date Status Sudafed Unknown Drug Allergy Active Reason For Referral No Information Medications Medication SIG (Take, Route, Frequency, Duration) Notes Start Date End Date Status Citalopram Hydrobromide 20 MG Tablet 1 tablet Orally Once a day Active Pantoprazole Sodium 40 MG Tablet Delayed Release TAKE 1 TABLET BY MOUTH TWICE A DAY; Duration: 90 Active Folic Acid 1 MG Tablet 1 tablet Orally O nce a day Active Multi Vitamin/Minerals - Tablet Orally Active Methotrexate 2.5 MG Tablet 8 pills Orall y once a week Active Gabapentin 300 MG Capsule Orally at night Active Immunizations Vaccine Route Administration Date Status Comme nts Influenza Unknown 01/09/2018 Administered Social History Tobacco Use: Social History Observation Description Date Details (start date - stop date) Former Smoker NA - NA Social History Tobacco Use: Social Info Question Answer Notes Tobacco Use/Smoking Patient is a former smoker How long has it been since you last smoked? 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 [employer] Caffeine: none Section Notes: Smoker; occasional alcohol Smoker--not daily; occasiona l alcohol Smoker--not daily; occasiona l alcohol Smoker--not daily; occasiona l alcohol Smoker--not daily; occasiona l alcohol Smoker--not daily; occasiona l alcohol Problems Problem Type SNOMED Code ICD Code Onset Dates Problem Status W/U Status Risk Notes Problem Irritable bowel syndrome (59549902) Irritable bowel syndrome without diarrhea (K58.9) Active confirmed Problem Early satiety (729907755) Early satiety (R68.81) Active confirmed Problem Gastroesophageal reflux disease without esophagitis (851022395) Gastroesophageal reflux disease without esophagitis (K21.9) Active confirmed Problem 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) Barretts esophagus without dysplasia (K22.70) Active confirmed Problem Constipation (28159565) Constipation, unspecified constipation type (K59.00) Active confirmed Problem Pyloric stenosis (496705751) Pyloric stenosis (K31.1) Active confirmed Problem Diarrhea (55367376) Diarrhea, unspecified type (R19.7) Active confirmed Problem Acquired hypertrophic pyloric stenosis (05429149) Pyloric stricture (K31.1) Active confirmed Problem Vomiting without nausea (207933813031195) Non-intractable vomiting without nausea, unspecified vomiting type [...] Insured Coverage Start Date Coverage End Date [facility] Meme [address] [place] [address] [id number] CARI MARTHA Self - patient is the insured MEDICAID OF [facility] [address] [place] [address] [phone] [id number] MARTHA ALCALA Self - patient is the [...] gastric biopsies neg for H.pylori Depression/Anxiety Denies WI,DM,CVA,Lung disease,renal dise ase Neg GB U/S in 07/[address] Martinez at [place]--she had a negative colonoscopy and barium enema in 2007 Rheumatoid arthritis---sees Dr. Mitzy osuna Surgical History Surgery Date(Month/Year) Tubal ligation Lower back surgery 11/2017
[2025-01-24 15:49] VITALS: BP 116/72; BMI 30.7
== END 2025-01-24 16:24 | disposition home or self-care (01) ==
LOC: HO.HWS 15:39
PROVIDERS: Visit Provider Advanced Practice Midwife
DX: Z01.419 Encounter for gynecological examination (general) (routine) without abnormal findings (principal); N95.1 Menopausal and female climacteric states; R68.82 Decreased libido; N95.2 Postmenopausal atrophic vaginitis; Z12.39 Encounter for other screening for malignant neoplasm of breast
CPT/HCPCS: 99396; 99459

== ENCOUNTER → 2025-01-24 15:38 | Outpatient (BNVA) | payer OTHER, SELFPAY | PROVIDERS: Visit Provider Advanced Practice Midwife | DX: Z01.419 Encounter for gynecological examination (general) (routine) without abnormal findings (principal); N95.1 Menopausal and female climacteric states; N95.2 Postmenopausal atrophic vaginitis; E66.3 Overweight; R68.82 Decreased libido; Z12.39 Encounter for other screening for malignant neoplasm of breast; Z68.30 Body mass index [BMI] 30.0-30.9, adult | CPT/HCPCS: 99396 ==